=== PATIENT | female | born 1960 | race Caucasian/White ===

== ENCOUNTER 2017-02-23 19:08 | Inpatient (IN) | payer OTHER ==
[~2017-02-23] VITALS: Ht 157.5 cm; Wt 91.0 kg
[~2017-02-23 19:08] MED LIST: ASPI-535 PO; CHOL2000 PO; FLUO20CA22 PO; HYD25 PO; HYDR-3498 PO; IBUP-1542 PO; JARDIANCE PO; LISI20TA11 PO; METF500T4 PO; OMEP20CA16 PO
[2017-02-23] MEDS ORDERED: SODIUM CHLORIDE 0.9% 1L BAG IV* STA (19:51)
[2017-02-23] MEDS ORDERED: ACETAMINOPHEN 325 MG TAB PO STA (19:51)
[2017-02-23] MEDS ORDERED: IBUPROFEN 600 MG TAB PO ONE (20:00)
[2017-02-23] MEDS ORDERED: AZTREONAM 1 GM/NS (PMX) 50 ML IVPB STA (20:17)
--- NOTE | 2017-02-23 20:22 | RADRPT ---
PROCEDURE: CT Brain without contrast. CLINICAL INDICATION: Headaches and possible sepsis TECHNIQUE: A CT of the brain was performed on a GE Quantum OPSpeeBoox 64-slice CT scanner utilizing axial imaging from the skull base through the vertex without IV contrast. Multiplanar reformatted images were made. Images were reviewed on a PACS workstation. The CTDIvol is 43.09 mGy and the DLP is 823 .32 mGycm. One of the following 3 dose reduction techniques were used: Automated exposure control; adjustment of the mA and/or kV according to patient size; or use of iterative reconstruction technique. COMPARISON: Noncontrast CT brain dated 05/25/2015 and 06/22/2014 FINDINGS: There is no intracranial hemorrhage, mass effect, or midline shift. No extra-axial fluid collection is seen. The ventricles and sulci are normal in size and configuration. The density of the brain is normal, and the watkins white matter differentiation appears well-preserved. Mild vascular calcificat ions are present of the bilateral intracranial internal carotid arteries. The visualized scalp and calvarium are normal. The bilateral orbits demonstrate prior lens replacem ent. The bilateral paranasal sinuses demonstrate nodular mucosa in the left greater than right ethm oid sinuses compatible with chronic sinus disease. The bilateral mastoid air cells and middle ear c avities are remarkable for chronic soft tissue attenuation in the right inferior mastoid air cells u nchanged from [address] CT. IMPRESSION: 1. No evidence of acute intracranial hemorrhage, infarcts, or acute intracranial pathology. 2. No significant interval change from 06/22/2014 3. Mild atherosclerotic vascular disease RPTAT: HDC .Marian Cazares MD, MD Date Time Electronically viewed and signed by .Marian Cazares MD, MD on 02/23/2017 20:22 .C/
[2017-02-23] MEDS ORDERED: VANCOMYCIN 1 GM (PMX) 250 ML IVPB ONE (20:30)
[2017-02-23] MEDS ORDERED: ACETAMINOPHEN 325 MG TAB PO ONE (21:00)
--- NOTE | 2017-02-23 21:02 | RADRPT ---
PROCEDURE: XR Chest. CLINICAL INDICATION: Sepsis. TECHNIQUE: Single frontal chest x-ray. COMPARISON: 10/30/2015 FINDINGS: Heart is enlarged.. Mild pulmonary vascular congestion.. There is left basilar atelectasis versus s carring, similar to prior study.. There is small peripheral nodular density right mid lung field, li otf calcified granulomas, unchanged. There is no pleural effusion. There is no pneumothorax. The osseous structures are unremarkable. IMPRESSION: Cardiomegaly.. Mild pulmonary vascular congestion. Left basilar atelectasis versus scarring. Prob able granulomas in the right mid lung field. RPTAT: HMVK .Justin Barton MD, MD Date Time Electronically viewed and signed by .Justin Barton MD, on 02/23/2017 21:02 .K/
[2017-02-23 21:33] LABS: ADD SCAN DIFF NO
[2017-02-23 21:35] LABS: ABNORMAL IP MESSAGE 1; BASOPHILS % 0.1 % (0.0-2.0); EOSINOPHILS % 0.2 % (0.0-7.0); HEMATOCRIT 44.8 % (37.0-47.0); HEMOGLOBIN 14.6 g/dl (12.0-16.0); LYMPHOCYTES # 0.3 10^3/ul (0.8-2.9); MEAN CORPUSCULAR HEMOGLOBIN 28.7 pg (29.0-33.0); MEAN CORPUSCULAR HGB CONC 32.6 g/dl (32.0-37.0); MEAN PLATELET VOLUME 10.7 fl (7.4-10.4); MONOCYTE # 0.5 10^3/ul (0.3-0.9); MONOCYTES % 6.3 % (0.0-11.0); NEUTROPHIL # 7.6 10^3/ul (1.6-7.5); NEUTROPHILS % 88.8 % (39.0-77.0); PLATELET COUNT 169 10^3/UL (140-415); RED BLOOD COUNT 5.09 10^6/ul (4.20-5.40); RED CELL DISTRIBUTION WIDTH 14.7 % (11.5-14.5); WHITE BLOOD COUNT 8.5 10^3/ul (4.8-10.8)
[2017-02-23 21:56] LABS: INR 1.06; PROTIME 13.8 Sec (12.2-14.2); PT RATIO 1.1
[2017-02-23 22:12] LABS: ALANINE AMINOTRANSFERASE 82 IU/L (13-69); ALBUMIN 4.5 g/dl (3.3-4.9); ALKALINE PHOSPHATASE 87 IU/L (42-121); ANION GAP 20 (8-16); ASPARTATE AMINO TRANSFERASE 91 IU/L (15-46); BILIRUBIN,INDIRECT 0.4 mg/dl (0-1.1); BILIRUBIN,TOTAL 0.4 mg/dl (0.2-1.3); BLOOD UREA NITROGEN 15 mg/dl (7-20); CALCIUM 9.7 mg/dl (8.4-10.2); CARBON DIOXIDE 25 mmol/L (21-31); CHLORIDE 97 mmol/L (97-110); CREATININE 0.78 mg/dl (0.44-1.00); GLUCOSE 119 mg/dl (70-220); POTASSIUM 3.7 mmol/L (3.5-5.1); SODIUM 138 mmol/L (135-144); TOTAL PROTEIN 7.7 g/dl (6.1-8.1)
--- NOTE | 2017-02-23 22:25 | ERA ---
ER Documentation Chief Complaint Date/Time DATE: 02/23/17 TIME: 22:22 Chief Complaint fever, bodyaches x 3 days -n/v/d HPI Patient is a 56-year-old female with hypertension, diabetes, and depression who presents with fever. She has had fever for the past 3 days. She has a headache and whole body pain. She has chills. She feels tired. She says she has never had this before. She has had no treatment as of yet. She is answering questions appropriately. She does not know who her primary care doctor is. Upon review of old medical records she has had previous visits to the emergency department with admissions. ROS All systems reviewed and are negative except as per history of present illness. Medications Home Meds Active Scripts Ibuprofen* (Motrin*) 600 Mg Tab, 600 MG PO Q6, #20 TAB Prov:ABDULLAHI AMBRIZ MD 11/18/15 Reported Medications Cholecalciferol* (Vitamin D3*) 2,000 Unit Cap, 2000 UNIT PO DAILY, CAP 10/30/15 Aspirin Ec (Aspir 81) 81 Mg Tablet.dr, 81 MG PO DAILY, #30 TAB 10/30/15 [Jardiance] No Conflict Check, 10 MG PO DAILY 05/25/15 Lisinopril* (Lisinopril*) 20 Mg Tablet, 20 MG PO DAILY, TAB 06/13/14 Omeprazole* (Omeprazole*) 20 Mg Capsule.dr, 20 MG PO DAILY, CAP 06/13/14 Hydrochlorothiazide* (Hydrochlorothiazide*) 25 Mg Tab, 25 MG PO DAILY, TAB 06/13/14 Fluoxetine Hcl* (Fluoxetine Hcl*) 20 Mg Capsule, 20 MG PO DAILY, CAP 06/13/14 Metformin* (Glucophage*) 500 Mg Tab, 500 MG PO BID, TAB 06/13/14 Discontinued Scripts Hydrocodone Bit-Acetaminophen* ([place]*) 5-325 Mg Tab, 1 TAB PO Q6 Y for PAIN, # 16 TAB Prov:ABDULLAHI AMBRIZ MD 11/18/15 Allergies Allergies: Coded Allergies: Penicillins (Unverified Allergy, Unknown, 02/23/17) PMhx/Soc History of Surgery: Yes (LITHOTRIPSY, HYSTERECTOMY, cholecytectomy, L shoulder , hernia) Anesthesia Reaction: No Hx Neurological Disorder: No Hx Respiratory Disorders: No Hx Cardiac Disorders: Yes (HTN) Hx Psychiatric Problems: No Hx Miscellaneous Medical Probl: Yes (DM, cholesterol) Hx Alcohol Use: No Hx Substance Use: No Hx Tobacco Use: No Smoking Status: Never smoker FmHx Family History: diabetes Physical Exam Vitals Vital Signs Date Time Temp Pulse Resp B/P Pulse Ox O2 Delivery O2 Flow Rate FiO2 02/23/17 22:13 99.2 97 22 104/57 96 Room Air 02/23/17 20:34 102.6 115 24 128/73 93 Room Air 02/23/17 19:26 103.1 127 20 136/65 95 Physical Exam Const: Moderate distress Head: Atraumatic Eyes: Normal Conjunctiva ENT: Normal External Ears, Nose and Mouth. Neck: Full range of motion..~ No meningismus. Able to move the neck back and forth without difficulty Resp: Decreased breath sounds bilaterally Cardio: Tachycardic rate without murmur Abd: Soft, non tender, non distended. Normal bowel sounds Skin: No petechiae or rashes Back: No midline or flank tenderness Ext: No cyanosis, or edema Neur: Awake and alert Psych: Normal Mood and Affect Result Diagram: 02/23/172044 Results 24 hrs Laboratory Tests Test 02/23/17 20:45 White Blood Count 8.510^3/ul Red Blood Count 5.0910^6/ul Hemoglobin 14.6g/dl Hematocrit 44.8% Mean Corpuscular Volume 88.0fl Mean Corpuscular Hemoglobin 28.7pg Mean Corpuscular Hemoglobin Concent 32.6g/dl Red Cell Distribution Width 14.7% Platelet Count 47449^3/UL Mean Platelet Volume 10.7fl Neutrophils % 88.8% Lymphocytes % 4.0% Monocytes % 6.3% Eosinophils % 0.2% Basophils % 0.1% Nucleated Red Blood Cells % 0.0/100WBC Neutrophils # 7.610^3/ul Lymphocytes # 0.310^3/ul Monocytes # 0.510^3/ul Eosinophils # 0.010^3/ul Basophils # 0.010^3/ul Nucleated Red Blood Cells # 0.010^3/ul Prothrombin Time 13.8Sec Prothrombin Time Ratio 1.1 INR International Normalized Ratio 1.06 Activated Partial Thromboplast Time Pending Lactic Acid Level 1.8mmol/L Current Medications Medications (Trade) Dose Ordered Sig/Bob Route PRN Reason Start Time Stop Time Status Last Admin Dose Admin Sodium Chloride (NS) 2,730 ml BOLUS OVER 2 HOURS STAT IV* 02/23/17 19:51 02/23/17 19:55 DC 02/23/17 20:52 Acetaminophen (Tylenol Tab) 650 mg ONCE STAT PO 02/23/17 19:51 02/23/17 19:56 DC 02/23/17 20:54 Ibuprofen 600 mg 600 mg ONCE ONCE PO 02/23/17 20:00 02/23/17 20:01 DC 02/23/17 20:53 Vancomycin HCl 250 ml @ 125 mls/hr ONCE ONCE IVPB 02/23/17 20:30 02/23/17 22:29 02/23/17 21:07 Aztreonam (Azactam 1gm/NS (Pmx)) 50 ml @ 100 mls/hr ONCE STAT IVPB 02/23/17 20:17 02/23/17 20:46 DC Acetaminophen (Tylenol Tab) 650 mg ONCE ONCE PO 02/23/17 21:00 02/23/17 21:01 DC Ondansetron HCl (Zofran Inj) 4 mg BRIDGE ORDER PRN IV NAUSEA AND/OR VOMITING 02/23/17 22:30 02/24/17 22:29 Acetaminophen (Tylenol Tab) 650 mg ER BRIDGE PRN PO MILD PAIN/FEVER 02/23/17 22:30 02/24/17 22:29 Procedures/MDM EKG read by me: Rate/Rhythm: Sinus tachycardia Intervals: Normal Impression: Tachycardia without ischemia Chest X-ray 1V Interpreted by me: Soft Tissue: No acute abnormalities Bones: No acute abnormalities Mediastinum/Cardiac Silhouette/Lungs: Left lower lobe pneumonia and possible right hilar pneumonia Admit MDM: Patient's infectious symptoms have not stabilized and the patient is at risk of rapid decompensation. The patient will be admitted for careful hydration, antibiotic therapy, and infectious source control. Severe Sepsis criteria: Infectious source: Pneumonia End organ damage indicated by: No end organ damage at this time Sepsis Management: Time of recognition of sepsis: Upon arrival Within 3 hours of recognition: Blood cultures x 2 before broad-spectrum antibiotics: Yes 30 ml/kg NS bolus Completed Initial lactate 1.8 Repeat lactate pending Time of recognition of septic shock: No septic shock Septic Shock Assessment: Any lactic acid > 4.0 No Persistent hypotension (SBP < 90 or 40 mmHg drop, MAP < 65) despite 30 mL/kg IV fluid bolus No Volume Re-assessment for Septic Shock (post 30 ml/kg bolus): No septic shock at this time Persistent Hypotension Treatment: Comfort care No Central line Not Required Vasopressor started Not required I considered further perfusion assessment with CVP measurement, SCVO2, bedside ultrasound volume assessment, passive leg raise, trial of further fluid bolus. And proceeded with 30 ml/kg fluid bolus of NSS, broad spectrum antibiotics, and admission. At this point I doubt meningitis and I feel the risks of a lumbar puncture outweigh the benefits. Accepting Care Team Current data and ongoing care discussed. Admitting Physician: Dr. Masterson who is covering for Dr. Prater who is admitted the patient in the past for [facility] Puppy Trainer(s): None Outstanding Data: Culture results and repeat lactic acid Critical Care: Critical care time 35 minutes excluding all billable procedures Emergent fluid management while maintaining close respiratory support. Provision of immediate and broad-spectrum antibiotic therapy. Simultaneous assessment for possible sources in order to direct targeted therapy. Consideration for invasive and chemical support to prevent cardiopulmonary collapse. Departure Diagnosis: Primary Impression: Fever Qualified Code: R50.9 - Fever, unspecified fever cause Additional Impressions: Pneumonia Qualified Code: J18.9 - Pneumonia due to infectious organism, unspecified laterality, unspecified part of lung Sepsis Qualified Code: A41.9 - Sepsis, due to unspecified organism Condition: MURPHY Jiang MD Feb 23, 2017 22:25
[2017-02-23] MEDS ORDERED: ACETAMINOPHEN 325 MG TAB PO PRN (22:30)
[2017-02-23] MEDS ORDERED: ONDANSETRON 4 MG INJ IV PRN (22:30)
[2017-02-23 22:38] LABS: TROPONIN-I < 0.012 ng/ml (0.00-0.12)
[2017-02-23 23:25] VITALS: TEMP 98.2
[2017-02-23 23:30] LABS: PARTIAL THROMBOPLASTIN TIME 33.9 Sec (25.0-35.0)
[2017-02-24 00:09] VITALS: BP 101/59; RESP 16
[2017-02-24] MEDS ORDERED: ONDANSETRON 4 MG INJ IV PRN ×2 (00:30→02:00)
[2017-02-24] MEDS ORDERED: morphine 4 MG/ML VIAL IV PRN ×2 (00:30→02:00)
[2017-02-24] MEDS ORDERED: ACETAMINOPHEN 325 MG TAB PO PRN (00:30)
[2017-02-24 01:48] VITALS: Ht 157.5 cm; Wt 91.0 kg
[2017-02-24 02:24] LABS: ADD UMIC YES; UR BILIRUBIN (Dip) NEGATIVE (NEGATIVE); UR BLOOD (Dip) 1+ (NEGATIVE); UR CLARITY CLEAR (CLEAR); UR COLOR LT. YELLOW (YELLOW); UR GLUCOSE (Dip) 1% % (NEGATIVE); UR LEUKOCYTE ESTERASE (Dip) NEGATIVE (NEGATIVE); UR NITRITE (Dip) NEGATIVE (NEGATIVE); UR TOTAL PROTEIN (Dip) 1+ (NEGATIVE); UR UROBILINOGEN (Dip) 1.0 E.U./dL (0.1-1.0)
[2017-02-24 02:28] LABS: UR KETONES (Dip) 1+ (NEGATIVE)
[2017-02-24 02:34] LABS: UR BUDDING YEAST RARE /HPF (NONE SEEN); UR SQUAMOUS EPITHELIAL CELL OCCASIONAL /HPF (FEW); URINE RBCS 0-2 /HPF (0)
[2017-02-24 03:24] LABS: ADD SCAN DIFF NO
[2017-02-24 03:26] LABS: BASOPHILS % 0.3 % (0.0-2.0); EOSINOPHILS % 0.2 % (0.0-7.0); HEMATOCRIT 41.5 % (37.0-47.0); HEMOGLOBIN 13.2 g/dl (12.0-16.0); LYMPHOCYTES # 0.7 10^3/ul (0.8-2.9); LYMPHOCYTES % 11.1 % (15.0-51.0); MEAN CORPUSCULAR HEMOGLOBIN 28.7 pg (29.0-33.0); MEAN CORPUSCULAR HGB CONC 31.8 g/dl (32.0-37.0); MEAN CORPUSCULAR VOLUME 90.2 fl (82.0-101.0); MONOCYTE # 0.5 10^3/ul (0.3-0.9); NEUTROPHIL # 4.7 10^3/ul (1.6-7.5); NEUTROPHILS % 79.7 % (39.0-77.0); PLATELET COUNT 148 10^3/UL (140-415); RED CELL DISTRIBUTION WIDTH 14.6 % (11.5-14.5); WHITE BLOOD COUNT 5.9 10^3/ul (4.8-10.8)
[2017-02-24 03:38] VITALS: BP 101/53; PULSE 67; RESP 18
[2017-02-24 03:47] LABS: ALBUMIN 4.1 g/dl (3.3-4.9); ALBUMIN/GLOBULIN RATIO 1.51; BILIRUBIN,INDIRECT 0.4 mg/dl (0-1.1); BILIRUBIN,TOTAL 0.4 mg/dl (0.2-1.3); CREATININE 0.71 mg/dl (0.44-1.00); POTASSIUM 3.3 mmol/L (3.5-5.1); TOTAL PROTEIN 6.8 g/dl (6.1-8.1)
[2017-02-24] MEDS: ACETAMINOPHEN 325 MG TAB PO PRN ×3 (06:00→17:32)
[2017-02-24 06:07] VITALS: BP 102/65; PULSE 91; RESP 18
[2017-02-24] MEDS ORDERED: GLUCOSE GEL 15 GRAM TUBE BUCCAL PRN (07:30)
[2017-02-24] MEDS ORDERED: GLUCOSE GEL 15 GRAM TUBE PO PRN ×2 (07:30)
[2017-02-24] MEDS ORDERED: GLUCAGON 1 MG INJ IM PRN (07:30)
[2017-02-24] MEDS ORDERED: DEXTROSE 50% 50 ML SYRINGE IV PRN ×2 (07:30)
[2017-02-24] MEDS: INSULIN ASPART [NOVOLOG] 3 ML PEN SC SCH ×4 (08:15→21:00)
[2017-02-24 08:17] VITALS: BP 112/63; RESP 16
[2017-02-24] MEDS ORDERED: ENOXAPARIN 30 MG/0.3 ML SYG SC SCH (09:00)
[2017-02-24] MEDS ORDERED: AZTREONAM 0.5 GM in SOD CHLORIDE 0.9% 50 ML IV SCH (09:00)
[2017-02-24] MEDS: AZTREONAM 0.5 GM in SOD CHLORIDE 0.9% 50 ML IV SCH ×2 (09:55→21:08)
[2017-02-24] MEDS: ENOXAPARIN 30 MG/0.3 ML SYG SC SCH ×2 (10:13→21:14)
[2017-02-24] MEDS: [UNRECOGNIZED DRUG - OTHER] XX SCH ×2 (13:00→21:00)
[2017-02-24] MEDS: EMPAGLIFLOZIN XX SCH ×2 (13:00→21:00)
[2017-02-24] MEDS: metFORMIN 500 MG TAB PO SCH (17:33)
--- NOTE | 2017-02-24 18:22 | CONS ---
DATE OF ADMISSION: 02/23/2017 DATE OF CONSULTATION: 02/24/2017 TYPE OF CONSULTATION: Infectious Disease. REASON FOR CONSULTATION: Antibiotic management. HISTORY OF PRESENT ILLNESS: Leann Ace is a 56-year-old female who comes in [facility] fever and body aches for 3 days' duration along with nausea, vomiting and diarrhea. PAST MEDICAL HISTORY: Include: 1. Hypertension. 2. Diabetes. 3. Depression. The patient has had fever for the last 3 days prior to admission with headache and whole body pain. She has had some chills. She has not had any treatment. ALLERGY: REPORTEDLY TO PENICILLIN. PAST SURGICAL HISTORY: Include: 1. Lithotripsy for stone. 2. Hysterectomy 3. Cholecystectomy. 4. Left shoulder surgery 5. Status post hernia repair. 6. Hypercholesterolemia. PAST MEDICAL HISTORY: Operations as outlined. FAMILY HISTORY: Noncontributory. FAMILY HISTORY: Positive for diabetes. SOCIAL HISTORY: She does not smoke, drink or abuse drugs. ALLERGIES: NONE TO PENICILLIN, SULFA OR FOODS. MEDICATIONS: Per chart. REVIEW OF SYSTEMS: As per HPI. PHYSICAL EXAMINATION: GENERAL: The patient is a well-developed, well-nourished female, alert, responsive, in no acute dis tress. VITAL SIGNS: Stable. She is afebrile. SKIN: Without generalized rash. HEENT: Within normal limits. NECK: Full range of motion without any meningismus. NECK: Supple. LYMPH NODES: None palpable. CHEST: Decreased breath sounds at the bases. HEART: Without murmur, rub or gallop. She is tachycardic. ABDOMEN: Soft, nontender, without organosplenomegaly or masses. EXTREMITIES: Without cyanosis, clubbing, or edema. RECTAL AND GENITAL: Deferred. NEUROLOGIC: No focal neurological abnormalities. LABORATORY DATA: White count of 8.5, H and H 14.6 and 44.8, platelet count 169,000. Today, her i te count is 5.9, BUN and creatinine 13/0.71. AST and ALT slightly elevated at 89 and 75 respectivel y. Hemoglobin A1c is 6.9. IMPRESSION AND PLAN: Patient was started on aztreonam and vancomycin. She received vancomycin and aztreonam. Her blood cultures x2 were drawn and urine culture was done as well. We will await the results of those cultures. Her chest x-ray just showed some mild pulmonary vascular congestion, lef t basilar atelectasis versus scarring, probable granuloma in the right mid lung field. I will sarina nue her on vancomycin and aztreonam and await the cultures. Currently, she is afebrile at 99.1. I will dictate my findings to the hospitalist. Dictated By: MELISSA EASLEY MD, JD/NIURKA Conf#: [id number] DID#: [id number]
[2017-02-24 19:22] VITALS: BP 126/67; RESP 20
[2017-02-24] MEDS ORDERED: POTASSIUM CHLORIDE (SR) 10 MEQ TAB PO STA (20:31)
[2017-02-25] MEDS ORDERED: ACCU-CHEK XX SCH ×2 (02:00)
[2017-02-25] MEDS: EMPAGLIFLOZIN XX SCH (05:00)
[2017-02-25] MEDS: [UNRECOGNIZED DRUG - OTHER] XX SCH (05:00)
[2017-02-25 06:00] LABS: ADD SCAN DIFF NO
[2017-02-25 06:13] LABS: HEMATOCRIT 39.5 % (37.0-47.0); HEMOGLOBIN 12.7 g/dl (12.0-16.0); MEAN CORPUSCULAR HEMOGLOBIN 28.7 pg (29.0-33.0); MEAN CORPUSCULAR HGB CONC 32.2 g/dl (32.0-37.0); MEAN CORPUSCULAR VOLUME 89.2 fl (82.0-101.0); MEAN PLATELET VOLUME 10.6 fl (7.4-10.4); PLATELET COUNT 164 10^3/UL (140-415); RED BLOOD COUNT 4.43 10^6/ul (4.20-5.40); RED CELL DISTRIBUTION WIDTH 14.5 % (11.5-14.5); WHITE BLOOD COUNT 4.4 10^3/ul (4.8-10.8)
[2017-02-25 06:38] LABS: CALCIUM 9.1 mg/dl (8.4-10.2); CHOL/HDL RATIO 5.2 RATIO; CREATININE 0.67 mg/dl (0.44-1.00); POTASSIUM 3.8 mmol/L (3.5-5.1)
--- NOTE | 2017-02-25 07:03 | HP ---
DATE OF ADMISSION: 02/23/2017 CHIEF COMPLAINT: Fever and body aches. HISTORY OF PRESENT ILLNESS: The patient is a 56-year-old female with medical history positive for h ypertension, diabetes, obesity, depression. The patient presented to the emergency room with compla ints of fever for the past 3 days. The patient also complains of headache and generalized body pain and malaise. The patient usually follows at [facility], does not exactly remem stephen the name of primary doctor. However, patient stated that she has been compliant with her medica tion for hypertension, diabetes. In the emergency room, the patient's temperature on admission was 103.1. The patient underwent a brain CT which showed no evidence of acute intracranial hemorrhage, infarct or acute intracranial pathology. No significant interval change from 06/22/2014. Mild athe rosclerotic vascular disease. The patient underwent chest x-ray which revealed left basilar with __ ___ of left lower lobe infiltrate. The patient was diagnosed with community-acquired pneumonia. Th e patient was started on vancomycin and aztreonam and was admitted for further evaluation and manage ment. The patient denies any nausea, vomiting. Denies any chest pain. Denies any bilateral lower extremity swelling. PAST MEDICAL HISTORY: Per HPI. PAST SURGICAL HISTORY: Status post hysterectomy, status post lithotripsy, status post cholecystecto my, status post right shoulder surgery for tendon repair, and status post cataract surgery. FAMILY HISTORY: The patient had sister with diabetes, hypertension and breast cancer. SOCIAL HISTORY: The patient lives at home with family. The patient denies any tobacco use, denies any alcohol use, denies any illicit drug use. ALLERGIES: THE PATIENT IS ALLERGIC TO PENICILLIN THAT CAUSES HER RASH WELL TONGUE SWELLING. HOME MEDICATIONS: Include: 1. Ibuprofen. 2. Vitamin D3. 3. Aspirin. 4. Jardiance. 5. Lisinopril. 6. Omeprazole. 7. Hydrochlorothiazide. 8. Fluoxetine. 9. Glucophage. REVIEW OF SYSTEMS: A 12-point review of systems is negative unless what mentioned in the HPI. PHYSICAL ASSESSMENT: GENERAL: Well-developed, obese female currently awake, alert. VITAL SIGNS: Temperature is 99.1, pulse is 89, blood pressure 112/63, respiratory rate 16, oxygen s aturation 96% on room air. HEENT: Head is atraumatic, normocephalic. Pupils equal, round, reactive to light and accommodation . Oral mucosa is pink and moist. NECK: Supple, no cervical lymphadenopathy, no thyromegaly. CHEST: Lungs clear bilaterally, slightly diminished at the bases. There is no rhonchi, wheezes, ra les noted. CARDIOVASCULAR: Normal S1, S2. No murmurs, gallops, clicks, rubs noted. ABDOMEN: Protuberant, soft, nondistended, nontender. Bowel sounds present. EXTREMITIES: There is no edema, clubbing, cyanosis. Pulses equal bilaterally 2+. SKIN: There is no rash, petechiae noted. NEUROLOGIC: The patient is alert and oriented x4. No focal deficits noted. Motor strength is 5/5 in all extremities. ASSESSMENT AND PLAN: 1. Community-acquired pneumonia. 2. Hypertension. 3. Diabetes. 4. Obesity. 5. Depression. We will continue patient's home medication. Continue metformin for diabetes and start NovoLog per m ild algorithm sliding scale before meals and at bedtime. Continue hydrochlorothiazide and lisinopri l. Continue patient on aztreonam. Ask Dr. Almonte to see patient in infectious disease consultation . Continue sequential compression devices for deep venous thrombosis prophylaxis. Also obtain hemoglobin A1c and lipid profile. Lovenox for deep venous thrombosis prophylaxis and Pepcid f or peptic ulcer disease prophylaxis. Further recommendations based on clinical course. Plan of care discussed with Dr. Prater. Dictated By: CALI COHEN MACHINED PARTS METAL SPRAYER for HYACINTH PRATER MD SR/NTS Conf#: [id number] DID#: [id number]
[2017-02-25 07:42] VITALS: BP 99/60; RESP 19
[2017-02-25] MEDS: INSULIN ASPART [NOVOLOG] 3 ML PEN SC SCH ×4 (08:15→20:57)
[2017-02-25] MEDS: LISINOPRIL 20 MG TAB PO SCH (08:34)
[2017-02-25] MEDS: ASPIRIN (EC) 81 MG TAB PO SCH (08:34)
[2017-02-25] MEDS: metFORMIN 500 MG TAB PO SCH ×2 (08:34→17:00)
[2017-02-25] MEDS: FAMOTIDINE 20 MG TAB PO SCH (08:34)
[2017-02-25] MEDS: HYDROCHLOROTHIAZIDE 25 MG TAB PO SCH (08:35)
[2017-02-25] MEDS: FLUOXETINE 20 MG CAP PO SCH (08:36)
[2017-02-25] MEDS: ENOXAPARIN 30 MG/0.3 ML SYG SC SCH ×2 (08:52→21:09)
[2017-02-25] MEDS ORDERED: ENOXAPARIN 30 MG/0.3 ML SYG SC SCH (09:00)
[2017-02-25] MEDS: JARDIANCE 10 MG PO SCH (09:27)
[2017-02-25] MEDS: AZTREONAM 0.5 GM in SOD CHLORIDE 0.9% 50 ML IV SCH (09:30)
[2017-02-25 10:27] LABS: EOSINOPHILS # 0.1 10^3/ul (0.0-0.5); LYMPHOCYTES # 1.5 10^3/ul (0.8-2.9); MONOCYTE # 0.4 10^3/ul (0.3-0.9); NEUTROPHIL # 2.2 10^3/ul (1.6-7.5)
[2017-02-25 10:29] LABS: PLATELET ESTIMATE PLT APPEAR ADEQUATE
--- NOTE | 2017-02-25 14:18 | PN ---
Date/Time of Note Date/Time of Note DATE: 02/25/17 TIME: 14:15 Assessment/Plan VTE Prophylaxis VTE Prophylaxis Intervention: SCD's Lines/Catheters IV Catheter Type (from [facility]): Peripheral IV Urinary Cath still in place: No Assessment/Plan Assessment/Plan 1. Community-acquired pneumonia. - per ID 2. Hypertension- cont .hydrochlorothiazide and lisinopril. 3. Diabetes - Continue metformin, NovoLog mild algorithm sliding scale before meals and at bedtime. 4. Obesity with BMI 36.7- weight management 5. Depression. 6. Sequential compression devices for deep venous thrombosis prophylaxis. 7. Lovenox for deep venous thrombosis prophylaxis 8. Pepcid for peptic ulcer disease prophylaxis. Further recommendations based on clinical course. Plan of care dw Dr Prater/ staff Exam/Review of Systems Vital Signs Vitals Vital Signs Date Time Temp Pulse Resp B/P Pulse Ox O2 Delivery O2 Flow Rate FiO2 02/25/17 07:42 98.7 101 19 99/60 95 02/24/17 06:07 Room Air Intake and Output 02/24/17 02/24/17 02/25/17 15:00 23:00 07:00 Intake Total 100 ml 2420 ml Output Total 1500 ml Balance 100 ml 920 ml Exam Constitutional: alert, oriented Respiratory: clear to auscultation, normal air movement Cardiovascular: nl pulses, regular rate and rhythm Gastrointestinal: non-tender, soft Musculoskeletal: nl extremities to inspection Neurological: nl mental status, nl speech Results Result Diagram: 02/25/17 0540 02/25/17 0540 Results 24 hrs Laboratory Tests Test 02/24/17 17:29 02/24/17 21:21 02/25/17 05:40 02/25/17 08:15 Bedside Glucose 96 114 127 White Blood Count 4.4 #L Red Blood Count 4.43 Hemoglobin 12.7 Hematocrit 39.5 Mean Corpuscular Volume 89.2 Mean Corpuscular Hemoglobin 28.7 L Mean Corpuscular Hemoglobin Concent 32.2 Red Cell Distribution Width 14.5 Platelet Count 164 Mean Platelet Volume 10.6 H Neutrophils % 50.0 Lymphocytes % 35.0 Monocytes % 10.0 Eosinophils % 3.0 Metamyelocytes % 1.0 H Myelocytes % 1.0 H Neutrophils # 2.2 Lymphocytes # 1.5 Monocytes # 0.4 Eosinophils # 0.1 Metamyelocytes # 0.0 Myelocytes # 0.0 Platelet Estimate PLT APPEAR ADEQUATE Sodium Level 138 Potassium Level 3.8 Chloride Level 104 Carbon Dioxide Level 26 Anion Gap 12 Blood Urea Nitrogen 12 Creatinine 0.67 Glucose Level 101 Calcium Level 9.1 Triglycerides Level 210 H Cholesterol Level 127 LDL Cholesterol, Calculated 61 HDL Cholesterol 24 L Cholesterol/HDL Ratio 5.2 Test 02/25/17 12:12 Bedside Glucose 114 Medications Medications Current Medications Morphine Sulfate (morphine) 4 mg Q4H PRN IV PAIN; Start 02/24/17 at 02:00 Acetaminophen (Tylenol Tab) 650 mg Q4H PRN PO PAIN AND OR ELEVATED TEMP Last administered on 02/24/17 17:32; Admin Dose 650 MG; Start 02/24/17 at 02:00 Ondansetron HCl (Zofran Inj) 4 mg Q6H PRN IV NAUSEA AND/OR VOMITING; Start at 02:00 Enoxaparin Sodium (Lovenox) 30 mg BID SC Last administered on 02/25/17 08:52; Admin Dose 30 MG; Start 02/24/17 at 09:00 Miscellaneous Information 1 ea NOTE XX ; Start 02/24/17 at 07:30 Glucose (Glutose) 15 gm Q15M PRN PO DECREASED GLUCOSE; Start 02/24/17 at 07:30 Glucose (Glutose) 22.5 gm Q15M PRN PO DECREASED GLUCOSE; Start 02/24/17 at 07: 30 Dextrose (D50w Syringe) 25 ml Q15M PRN IV DECREASED GLUCOSE; Start 02/24/17 at 07:30 Dextrose (D50w Syringe) 50 ml Q15M PRN IV DECREASED GLUCOSE; Start 02/24/17 at 07:30 Glucagon (Glucagen) 1 mg Q15M PRN IM DECREASED GLUCOSE; Start 02/24/17 at 07:30 Glucose (Glutose) 15 gm Q15M PRN BUCCAL DECREASED GLUCOSE; Start 02/24/17 at 07 :30 Famotidine (Pepcid) 20 mg DAILY PO Last administered on 02/25/17 08:34; Admin Dose 20 MG; Start 02/25/17 at 09:00 Aspirin (Halfprin) 81 mg DAILY PO Last administered on 02/25/17 08:34; Admin Dose 81 MG; Start 02/25/17 at 09:00 Fluoxetine HCl (Prozac) 20 mg DAILY PO Last administered on 02/25/17 08:36; Admin Dose 20 MG; Start 02/25/17 at 09:00 Hydrochlorothiazide (Hydrochlorothiazide) 25 mg DAILY PO Last administered on 08:35; Admin Dose 25 MG; Start 02/25/17 at 09:00 Lisinopril (Zestril) 20 mg DAILY PO Last administered on 02/25/17 08:34; Admin Dose 20 MG; Start 02/25/17 at 09:00 Patient Own Medication 1 ea DAILY PO ; Start 02/25/17 at 10:00 Miscellaneous Information (* Miscellaneous Pharmacy Order) PATIENT'S OWN MEDICATI... DAILY XX ; Start 02/26/17 at 09:00 Levofloxacin (Levaquin) 500 mg ONCE ONCE PO ; Start 02/25/17 at 14:30; Stop at 14:31 Levofloxacin (Levaquin) 500 mg DAILY@06 PO ; Start 02/26/17 at 06:00 LEEANNE ROSEN Feb 25, 2017 14:18
[2017-02-25] MEDS ORDERED: LEVOFLOXACIN 500 MG TAB PO ONE (14:30)
--- NOTE | 2017-02-25 14:32 | PN ---
DATE: 02/25/2017 SUBJECTIVE: Patient is alert, denies pain, no fevers, looks comfortable. WBC today 4.4, no shift, no bands. BUN 12, creatinine 0.67. MICROBIOLOGY: Blood cultures negative. Urine culture grew lactobacillus species consistent with co ntaminant. ANTIMICROBIALS: None. ALLERGIES: PENICILLIN. ANTIMICROBIALS: The patient is on aztreonam. PHYSICAL EXAMINATION: GENERAL: This is a morbidly obese, middle-aged woman who is awake, in no distress. HEENT: Head atraumatic, normocephalic. Sclerae anicteric. Buccal mucosa pink. NECK: Supple. CHEST: Rise symmetrical. Breath sounds clear. HEART: S1, S2. ABDOMEN: Soft, bowel tones present. EXTREMITIES: Without cyanosis. ASSESSMENT: 1. Systemic inflammatory response syndrome with ongoing fevers. 2. Possible pneumonia. 3. Morbid obesity. 4. ALLERGY TO PENICILLIN. 5. Diabetes. 6. Hypertension. PLAN: The patient remains stable. Blood cultures have been negative. We are going to change antib iotics to oral Levaquin. Repeat chest x-ray in a.m. and repeat cultures if patient spikes fevers ag ain. Dictated By: KEI MARTINES FURNITURE BUILDER for MELISSA SANCHEZ/NIURKA Conf#: [id number] DID#: [id number]
[2017-02-25 19:42] VITALS: BP 125/59; RESP 20
[2017-02-26] MEDS ORDERED: LEVOFLOXACIN 500 MG TAB PO SCH (06:00)
[2017-02-26] MEDS: ACETAMINOPHEN 325 MG TAB PO PRN (06:16)
[2017-02-26 06:20] VITALS: BP 118/60; PULSE 85; RESP 19
[2017-02-26 07:53] VITALS: BP 116/72; RESP 18
[2017-02-26] MEDS: INSULIN ASPART [NOVOLOG] 3 ML PEN SC SCH ×3 (07:59→17:39)
[2017-02-26] MEDS: metFORMIN 500 MG TAB PO SCH ×2 (08:00→17:39)
[2017-02-26] MEDS: HYDROCHLOROTHIAZIDE 25 MG TAB PO SCH (08:26)
[2017-02-26] MEDS: ASPIRIN (EC) 81 MG TAB PO SCH (08:27)
[2017-02-26] MEDS: FLUOXETINE 20 MG CAP PO SCH (08:27)
[2017-02-26] MEDS: LISINOPRIL 20 MG TAB PO SCH (08:27)
[2017-02-26] MEDS: FAMOTIDINE 20 MG TAB PO SCH (08:27)
[2017-02-26] MEDS ORDERED: [UNRECOGNIZED DRUG - REMARK] XX SCH (09:00)
[2017-02-26] MEDS: ENOXAPARIN 30 MG/0.3 ML SYG SC SCH (09:20)
[2017-02-26] MEDS: JARDIANCE 10 MG PO SCH (09:25)
--- NOTE | 2017-02-26 10:33 | RADRPT ---
PROCEDURE: Chest 1 views. CLINICAL INDICATION: Shortness of breath. TECHNIQUE: AP views of the chest was obtained. COMPARISON: February 23, 2017 FINDINGS: The heart is large. Mild interstitial prominence in both lungs is unchanged. Atelectasis or scarrin g at the left lung base is unchanged. Calcified granulomatous disease in both lungs is unchanged. Atelectasis is seen at the right lung base. No consolidations are identified. No pneumothorax is se en. Osseous structures are intact. IMPRESSION: Cardiomegaly . Stable mild interstitial prominence in both lungs. Interstitial prominence may be chronic. Stable atelectasis or scarring at the left lung base. Atelectasis at the right lung base. Stable calcified granulomatous disease in both lungs. RPTAT: AA .Efrain Jackson MD, MD Date Time Electronically viewed and signed by .Efrain Jackson MD, MD on 02/26/2017 10:32 .P/
--- NOTE | 2017-02-26 13:04 | CONS ---
Date/Time of Note Date/Time of Note DATE: 02/26/17 TIME: 13:03 Assessment/Plan Assessment/Plan Chief Complaint/Hosp Course SUBJECTIVE: Patient is alert, no fevers, looks comfortable. MICROBIOLOGY: Blood cultures negative. Urine culture grew lactobacillus species consistent with contaminant. ANTIMICROBIALS: Levaquin ALLERGIES: PENICILLIN. PHYSICAL EXAMINATION: GENERAL: This is a morbidly obese, middle-aged woman who is awake, in no distress. HEENT: Head atraumatic, normocephalic. Sclerae anicteric. Buccal mucosa pink. NECK: Supple. CHEST: Rise symmetrical. Breath sounds clear. HEART: S1, S2. ABDOMEN: Soft, bowel tones present. EXTREMITIES: Without cyanosis. ASSESSMENT: 1. Systemic inflammatory response syndrome with ongoing fevers. 2. Possible pneumonia. 3. Morbid obesity. 4. ALLERGY TO PENICILLIN. 5. Diabetes. 6. Hypertension. PLAN: The patient remains stable. Blood cultures have been negative. Repeat chest x-ray noted, ok dc on oral abx for 7 days. DW staff Problems: Consultation Date/Type/Reason Admit Date/Time Feb 23, 2017 at 22:20 Initial Consult Date Type of Consultation: ID Exam/Review of Systems Vital Signs Vitals Vital Signs Date Time Temp Pulse Resp B/P Pulse Ox O2 Delivery O2 Flow Rate FiO2 02/26/17 07:53 98.1 75 18 116/72 93 02/24/17 06:07 Room Air Intake and Output 02/25/17 02/25/17 02/26/17 15:00 23:00 07:00 Intake Total 850 ml 2000 ml Output Total 600 ml Balance 850 ml 1400 ml Results Result Diagram: 02/25/17 0540 02/25/17 0540 Results 24 hrs Laboratory Tests Test 02/25/17 16:59 02/25/17 20:50 02/26/17 07:58 02/26/17 11:57 Bedside Glucose 134 122 139 101 Medications Medications Current Medications Morphine Sulfate (morphine) 4 mg Q4H PRN IV PAIN; Start 02/24/17 at 02:00 Acetaminophen (Tylenol Tab) 650 mg Q4H PRN PO PAIN AND OR ELEVATED TEMP Last administered on 02/26/17t 06:16; Admin Dose 650 MG; Start 02/24/17 at 02:00 Ondansetron HCl (Zofran Inj) 4 mg Q6H PRN IV NAUSEA AND/OR VOMITING; Start at 02:00 Enoxaparin Sodium (Lovenox) 30 mg BID SC Last administered on 02/26/17 09:20; Admin Dose 30 MG; Start 02/24/17 at 09:00 Miscellaneous Information 1 ea NOTE XX ; Start 02/24/17 at 07:30 Glucose (Glutose) 15 gm Q15M PRN PO DECREASED GLUCOSE; Start 02/24/17 at 07:30 Glucose (Glutose) 22.5 gm Q15M PRN PO DECREASED GLUCOSE; Start 02/24/17 at 07: 30 Dextrose (D50w Syringe) 25 ml Q15M PRN IV DECREASED GLUCOSE; Start 02/24/17 at 07:30 Dextrose (D50w Syringe) 50 ml Q15M PRN IV DECREASED GLUCOSE; Start 02/24/17 at 07:30 Glucagon (Glucagen) 1 mg Q15M PRN IM DECREASED GLUCOSE; Start 02/24/17 at 07:30 Glucose (Glutose) 15 gm Q15M PRN BUCCAL DECREASED GLUCOSE; Start 02/24/17 at 07 :30 Famotidine (Pepcid) 20 mg DAILY PO Last administered on 02/26/17 08:27; Admin Dose 20 MG; Start 02/25/17 at 09:00 Aspirin (Halfprin) 81 mg DAILY PO Last administered on 02/26/17 08:27; Admin Dose 81 MG; Start 02/25/17 at 09:00 Fluoxetine HCl (Prozac) 20 mg DAILY PO Last administered on 02/26/17 08:27; Admin Dose 20 MG; Start 02/25/17 at 09:00 Hydrochlorothiazide (Hydrochlorothiazide) 25 mg DAILY PO Last administered on 08:26; Admin Dose 25 MG; Start 02/25/17 at 09:00 Lisinopril (Zestril) 20 mg DAILY PO Last administered on 02/26/17 08:27; Admin Dose 20 MG; Start 02/25/17 at 09:00 Patient Own Medication 1 ea DAILY PO Last administered on 02/26/17 09:25; Admin Dose 1 EA; Start 02/25/17 at 10:00 Miscellaneous Information (* Miscellaneous Pharmacy Order) PATIENT'S OWN MEDICATI... DAILY XX ; Start 02/26/17 at 09:00 Levofloxacin (Levaquin) 500 mg DAILY@06 PO Last administered on 02/26/17t 05:36 ; Admin Dose 500 MG; Start 02/26/17 at 06:00 KEI MARTINES NP Feb 26, 2017 13:04
[2017-02-26] MEDS ORDERED: LEVO500T72 PO (18:24)
[2017-02-26 19:34] VITALS: BP 120/63; RESP 20
--- NOTE | 2017-03-05 20:53 | DS ---
Date/Time of Note Date/Time of Note DATE: 03/05/17 TIME: 20:50 Discharge Summary Admission/Discharge Info Admit Date/Time Feb 23, 2017 at 22:20 Discharge Date/Time Feb 26, 2017 at 21:00 Discharge Diagnosis 1. Community-acquired pneumonia. 2. Hypertension. 3. Diabetes. 4. Obesity. 5. Depression. Patient Condition: Good Hx of Present Illness The patient is a 56-year-old female with medical history positive for hypertension, diabetes, obesity, depression. The patient presented to the emergency room with complaints of fever for the past 3 days. The patient also complains of headache and generalized body pain and malaise. The patient usually follows at [facility], does not exactly remember the name of primary doctor. However, patient stated that she has been compliant with her medication for hypertension, diabetes. In the emergency room , the patient's temperature on admission was 103.1. The patient underwent a brain CT which showed no evidence of acute intracranial hemorrhage, infarct or acute intracranial pathology. No significant interval change from 06/22/2014. Mild atherosclerotic vascular disease. The patient underwent chest x-ray which revealed left basilar with of left lower lobe infiltrate. The patient was diagnosed with community-acquired pneumonia. The patient was started on vancomycin and aztreonam and was admitted for further evaluation and management. The patient denies any nausea, vomiting. Denies any chest pain. Denies any bilateral lower extremity swelling. Hospital Course 1. Community-acquired pneumonia. Evaluated by Dr Almonte, ID. Given Aztreonam, d /robson on oral Levaquin. 2. Hypertension. 3. Diabetes. 4. Obesity. 5. Depression. Home Meds Active Scripts Levofloxacin* (Levaquin*) 500 Mg Tablet, 500 MG PO DAILY@06 for 7 Days, TAB Prov:CALI COHEN 02/26/17 Ibuprofen* (Motrin*) 600 Mg Tab, 600 MG PO Q6, #20 TAB Prov:ABDULLAHI AMBRIZ MD 11/18/15 Reported Medications Cholecalciferol* (Vitamin D3*) 2,000 Unit Cap, 2000 UNIT PO DAILY, CAP 10/30/15 Aspirin Ec (Aspir 81) 81 Mg Tablet.dr, 81 MG PO DAILY, #30 TAB 10/30/15 [Jardiance] No Conflict Check, 10 MG PO DAILY 05/25/15 Lisinopril* (Lisinopril*) 20 Mg Tablet, 20 MG PO DAILY, TAB 06/13/14 Omeprazole* (Omeprazole*) 20 Mg Capsule.dr, 20 MG PO DAILY, CAP 06/13/14 Hydrochlorothiazide* (Hydrochlorothiazide*) 25 Mg Tab, 25 MG PO DAILY, TAB 06/13/14 Fluoxetine Hcl* (Fluoxetine Hcl*) 20 Mg Capsule, 20 MG PO DAILY, CAP 06/13/14 Metformin* (Glucophage*) 500 Mg Tab, 500 MG PO BID, TAB 06/13/14 Follow-up Plan f/up with PMD in 2 weeks. Primary Care Provider [facility] CALI COHEN Mar 05, 2017 20:53
== END 2017-02-26 21:00 | disposition home or self-care (01) | DRG 194 ==
LOC: E/R 19:08 → MS2 22:20
PROVIDERS: ADMIT Internal Medicine; ATTEND Internal Medicine
DX: J18.9 Pneumonia, unspecified organism (principal); J98.11 Atelectasis; R65.10 Systemic inflammatory response syndrome (SIRS) of non-infectious origin without acute organ dysfunction; I10 Essential (primary) hypertension; E11.9 Type 2 diabetes mellitus without complications; E66.9 Obesity, unspecified; F32.9 Major depressive disorder, single episode, unspecified; Y95 Nosocomial condition; Z79.82 Long term (current) use of aspirin; Z68.36 Body mass index [BMI] 36.0-36.9, adult; Z88.0 Allergy status to penicillin
CPT/HCPCS: 36415; 70450; 71010; 80048; 80053; 80061; 81001; 82962; 83036; 83605; 83690; 84484; 85025; 85610; 85730; 87040; 87086; 87400; 93005; 96374; 96375; J1650; J1815; J3370; J7030

== ENCOUNTER 2017-07-30 05:42 | Observation (INO) | payer OTHER ==
[~2017-07-30] VITALS: Ht 157.5 cm; Wt 92.1 kg
[~2017-07-30 05:42] MED LIST changes: -HYD25 PO; -HYDR-3498 PO; +HYDR25TA6 PO; +LEVO500T72 PO
[2017-07-30 06:00] VITALS: TEMP 98.2
[2017-07-30] MEDS ORDERED: LIDOCAINE/MYLANTA 40 ML BTL PO ONE (06:09)
[2017-07-30] MEDS ORDERED: NITROGLYCERIN 2% 1 GM OINT PKT TD ONE (06:09)
[2017-07-30] MEDS ORDERED: FAMOTIDINE 20 MG INJ IV ONE (06:09)
[2017-07-30] MEDS ORDERED: ASPIRIN 81 MG TAB PO ONE (06:09)
--- NOTE | 2017-07-30 06:13 | ERD ---
ER Documentation Chief Complaint Chief Complaint chest pain radaiting to left shoulder at 3am today HPI This is a 57-year-old female. A hourly sign language interpreter was used. She states that around 3 AM this morning she woke up with left-sided chest pain radiating to her left arm. She describes it as pressure-like, 6 out of 10. She took a baby aspirin prior to arrival. Patient denies any fevers or chills, cough, shortness of breath, no pleuritic pain. She denies any pain to the middle of her back. She states similar episode 4 years ago for which she was evaluated. She describes constant pain at this time. ROS All systems reviewed and are negative except as per history of present illness. Medications Home Meds Active Scripts Levofloxacin* (Levaquin*) 500 Mg Tablet, 500 MG PO DAILY@06 for 7 Days, TAB Prov:CALI COHEN 02/26/17 Ibuprofen* (Motrin*) 600 Mg Tab, 600 MG PO Q6, #20 TAB Prov:ABDULLAHI AMBRIZ MD 11/18/15 Reported Medications Cholecalciferol* (Vitamin D3*) 2,000 Unit Cap, 2000 UNIT PO DAILY, CAP 10/30/15 Aspirin Ec (Aspir 81) 81 Mg Tablet.dr, 81 MG PO DAILY, #30 TAB 10/30/15 [Jardiance] No Conflict Check, 10 MG PO DAILY 05/25/15 Lisinopril* (Lisinopril*) 20 Mg Tablet, 20 MG PO DAILY, TAB 06/13/14 Omeprazole* (Omeprazole*) 20 Mg Capsule.dr, 20 MG PO DAILY, CAP 06/13/14 Hydrochlorothiazide* (Hydrochlorothiazide*) 25 Mg Tab, 25 MG PO DAILY, TAB 06/13/14 Fluoxetine Hcl* (Fluoxetine Hcl*) 20 Mg Capsule, 20 MG PO DAILY, CAP 06/13/14 Metformin* (Glucophage*) 500 Mg Tab, 500 MG PO BID, TAB 06/13/14 Allergies Allergies: Coded Allergies: Penicillins (Unverified Allergy, Unknown, 02/23/17) PMhx/Soc History of Surgery: Yes (hysterectomy, lithotripsy, cholecystectomy, r shoulder sx, hernia sx) Anesthesia Reaction: No Hx Neurological Disorder: No Hx Respiratory Disorders: No Hx Cardiac Disorders: Yes (htn) Hx Psychiatric Problems: Yes (depression) Hx Miscellaneous Medical Probl: No Hx Alcohol Use: No Hx Substance Use: No Hx Tobacco Use: No FmHx Family History: diabetes Physical Exam Vitals Vital Signs Date Time Temp Pulse Resp B/P Pulse Ox O2 Delivery O2 Flow Rate FiO2 07/30/17 07:04 81 23 116/73 96 Room Air 07/30/17 06:00 Nasal Cannula 2 07/30/17 06:00 98.2 96 18 135/90 100 Nasal Cannula 2.0 07/30/17 05:48 99.3 91 20 126/71 97 Physical Exam General: Well developed, well nourished, no acute distress Head: Normocephalic, atraumatic. Eyes: Pupils equally reactive, EOM intact ENT: Moist mucous membranes Neck: Supple, no lymphadenopathy Respiratory: Lungs clear bilaterally, no distress Cardiovascular: RRR, no murmurs, rubs, or gallops Abdominal: Soft, non-tender, non-distended, no peritoneal signs : Deferred MSK: No edema, no unilateral swelling, 5/5 strength with no pulse deficits Neurologic: Alert and oriented, moving all extremities, normal speech, no focal weakness, no cerebellar signs Skin: No rash Psych: Normal mood Result Diagram: 07/30/1715 07/30/1715 Results 24 hrs Laboratory Tests Test 07/30/17 06:15 White Blood Count 7.710^3/ul Red Blood Count 4.9910^6/ul Hemoglobin 14.1g/dl Hematocrit 44.2% Mean Corpuscular Volume 88.6fl Mean Corpuscular Hemoglobin 28.3pg Mean Corpuscular Hemoglobin Concent 31.9g/dl Red Cell Distribution Width 14.2% Platelet Count 82286^3/UL Mean Platelet Volume 10.1fl Neutrophils % 54.6% Lymphocytes % 25.9% Monocytes % 10.3% Eosinophils % 7.5% Basophils % 0.8% Nucleated Red Blood Cells % 0.0/100WBC Neutrophils # 4.210^3/ul Lymphocytes # 2.010^3/ul Monocytes # 0.810^3/ul Eosinophils # 0.610^3/ul Basophils # 0.110^3/ul Nucleated Red Blood Cells # 0.010^3/ul Sodium Level 145mmol/L Potassium Level 4.1mmol/L Chloride Level 104mmol/L Carbon Dioxide Level 31mmol/L Anion Gap 14 Blood Urea Nitrogen 14mg/dl Creatinine 0.82mg/dl Glucose Level 151mg/dl Calcium Level 9.3mg/dl Troponin I < 0.012ng/ml Current Medications Medications (Trade) Dose Ordered Sig/Bob Route PRN Reason Start Time Stop Time Status Last Admin Dose Admin Famotidine (Pepcid Iv) 20 mg ONCE ONCE IV 07/30/17 06:09 07/30/17 06:12 DC 07/30/17 06:17 Miscellaneous Medication (Gi Cocktail (2)) 40 ml ONCE ONCE PO 07/30/17 06:09 07/30/17 06:12 DC 07/30/17 06:17 Aspirin (Aspirin) 162 mg ONCE ONCE PO 07/30/17 06:09 07/30/17 06:12 DC 07/30/17 06:17 Nitroglycerin (Nitroglycerin 2% Oint) 1 inch ONCE ONCE TD 07/30/17 06:09 07/30/17 06:12 DC 07/30/17 06:18 Ondansetron HCl (Zofran Inj) 4 mg ER BRIDGE PRN IV NAUSEA AND/OR VOMITING 07/30/17 07:30 07/31/17 07:29 Acetaminophen (Tylenol Tab) 650 mg ER BRIDGE PRN PO MILD PAIN/FEVER 07/30/17 07:30 07/31/17 07:29 Procedures/MDM EKG, MONITORS, & DIAGNOSTIC IMAGING: EKG: I reviewed and interpreted a 12-lead EKG. Rhythm: Normal sinus rhythm Ectopy: None Intervals: No abnormalities ST segments: No elevations or depressions T waves: No contiguous inversions Repeat EKG: EKG: I reviewed and interpreted a 12-lead EKG. Rhythm: Normal sinus rhythm Ectopy: None Intervals: No abnormalities ST segments: No elevations or depressions T waves: No contiguous inversions Chest x-ray: I reviewed and interpreted a 1 view of the chest Mediastinum: No enlargement Cardiac silhouette: No cardiomegaly Airspace: Clear lung stephenson bilaterally without evidence of pneumothorax Bones: No evidence of fracture LAB INTERPRETATION: The patient has no leukocytosis and a negative troponin MEDICAL DECISION MAKING: The patient's history, physical exam and clinical presentation is concerning for possible cardiogenic etiology and acute coronary syndrome. Reviewing the patient's electronic medical record the patient had an admission in 2016 for similar related symptoms that have been described as nocturnal chest pain. She had negative troponins at that time. At that time it was noted that she had a negative nuclear medicine stress test within the past year. It is now been significantly longer. No further provocative testing is been completed on this patient. This could be related to GI process given the nocturnal presentation however she has multiple risk factors including age, female gender, morbid obesity, diabetes among others. I believe the patient requires further risk stratification. Based on the patient's clinical exam and history and risk factors, I have a much lower clinical concern for pulmonary embolism, acute aortic dissection, pneumothorax, pneumonia, cardiac tamponade HEART Score: 4 MACE Rate: 16.6% Shared Decision Making: We had a conversation regarding risk stratification, MACE rate, and the risks, benefits, alternatives of disposition planning options. Disposition planning: I strongly recommend hospitalization the patient agrees. ER COURSE: Aspirin, nitroglycerin and GI cocktail provided to the patient. Her chest pain is resolved. The patient's laboratory testing and diagnostic imaging are unrevealing. At this point again, I believe inpatient hospitalization is appropriate. I kept the patient and/or family informed of laboratory and diagnostic imaging results throughout the emergency room course. DISPOSITION PLAN: Telemetry admission for management of chest pain to rule out acute coronary syndrome, serial enzymes, risk stratification and consideration of provocative testing CONSULTATION: Accepting care team and consultations: I discussed the current laboratory data, diagnostic imaging and emergency care provided. Admitting team: Dr. Jo Admitting team indication: Insurance directed, [facility] Departure Diagnosis: Primary Impression: Chest pain Chest pain type: unspecified Qualified Code: R07.9 - Chest pain, unspecified type Condition: REECE Strong MD Jul 30, 2017 06:13
[2017-07-30 06:29] LABS: BASOPHIL # 0.1 10^3/ul (0.0-0.1); BASOPHILS % 0.8 % (0.0-2.0); EOSINOPHILS # 0.6 10^3/ul (0.0-0.5); EOSINOPHILS % 7.5 % (0.0-7.0); HEMATOCRIT 44.2 % (37.0-47.0); HEMOGLOBIN 14.1 g/dl (12.0-16.0); LYMPHOCYTES % 25.9 % (15.0-51.0); MEAN CORPUSCULAR HEMOGLOBIN 28.3 pg (29.0-33.0); MEAN CORPUSCULAR HGB CONC 31.9 g/dl (32.0-37.0); MEAN CORPUSCULAR VOLUME 88.6 fl (82.0-101.0); MEAN PLATELET VOLUME 10.1 fl (7.4-10.4); MONOCYTE # 0.8 10^3/ul (0.3-0.9); MONOCYTES % 10.3 % (0.0-11.0); NEUTROPHIL # 4.2 10^3/ul (1.6-7.5); NEUTROPHILS % 54.6 % (39.0-77.0); PLATELET COUNT 229 10^3/UL (140-415); RED BLOOD COUNT 4.99 10^6/ul (4.20-5.40); RED CELL DISTRIBUTION WIDTH 14.2 % (11.5-14.5); WHITE BLOOD COUNT 7.7 10^3/ul (4.8-10.8)
[2017-07-30 06:50] LABS: ANION GAP 14 (8-16); BLOOD UREA NITROGEN 14 mg/dl (7-20); CALCIUM 9.3 mg/dl (8.4-10.2); CARBON DIOXIDE 31 mmol/L (21-31); CHLORIDE 104 mmol/L (97-110); CREATININE 0.82 mg/dl (0.44-1.00); GLUCOSE 151 mg/dl (70-220); POTASSIUM 4.1 mmol/L (3.5-5.1); SODIUM 145 mmol/L (135-144)
--- NOTE | 2017-07-30 07:02 | RADRPT ---
PROCEDURE: XR Chest. CLINICAL INDICATION: Chest pain. TECHNIQUE: AP Portable chest. COMPARISON: 10/30/2015, 05/25/2015 FINDINGS: The cardiomediastinal silhouette is magnified. Multiple bilateral calcified granulomas and calcified right hilar lymph nodes are again seen. No focal consolidation, pleural effusion or pneumothorax is identified. The osseous structures are intact. IMPRESSION: No radiographic evidence of acute cardiopulmonary disease. Old granulomatous disease. Physician Annie Date Time Electronically viewed and signed by Naye Lara Physician on 07/30/2017 07:01 CS/
[2017-07-30 07:06] LABS: TROPONIN-I < 0.012 ng/ml (0.00-0.12)
[2017-07-30] MEDS ORDERED: ACETAMINOPHEN 325 MG TAB PO PRN ×2 (07:30→14:30)
[2017-07-30] MEDS ORDERED: ONDANSETRON 4 MG INJ IV PRN ×2 (07:30→14:30)
[2017-07-30] MEDS ORDERED: EMPA10TA PO (10:31)
--- NOTE | 2017-07-30 14:28 | HP ---
Date/Time of Note Date/Time of Note DATE: 07/30/17 TIME: 14:23 Assessment/Plan VTE Prophylaxis VTE Prophylaxis Intervention: LMWH Lines/Catheters IV [facility] [place] Assessment/Plan Chief Complaint/Hosp Course 1. Chest pain No evidence of ACS at this time Trend troponin Cardiology consultation Patient does have risk factors of obesity, hypertension and diabetes Beta-madai, aspirin and statin Follow up on A1c and lipid panel 2. Diabetes Scheduled insulin and sliding scale 3. Hypertension Resume home meds 4. Obesity Lifestyle changes to be advised Prophylaxis: Lovenox Problems: HPI/ROS Admit Date/Time Admit Date/Time July 30, 2017 Hx of Present Illness Patient is a 57-year-old female history of diabetes, hypertension, obesity and depression. Patient presents with chest pain that began this morning, she reports a pressure-like pain in the left side of her chest. Patient denies any cardiac history she currently denies any chest pain she denies any changes in her bowel habits, shortness of breath or diaphoresis. ROS Constitutional: improved, no complaints Eyes: no complaints ENT: no complaints Respiratory: no complaints Cardiovascular: no complaints Gastrointestinal: no complaints Genitourinary: no complaints Musculoskeletal: no complaints Skin: no complaints Neurologic: no complaints Endocrine: no complaints Lymphatic: no complaints Psychological: nl mood/affect, no complaints Immunologic: no complaints PMH/Family/Social Past Medical History Obesity, diabetes, hypertension Past Surgical History Past Surgical Hx: cholecystectomy Family History Significant Family History: no pertinent family hx Social History Alcohol Use: none Smoking Status: Never smoker Drug Use: none Exam/Review of Systems Vital Signs Vitals Vital Signs Date Time Temp Pulse Resp B/P Pulse Ox O2 Delivery O2 Flow Rate FiO2 07/30/17 13:08 90 18 110/70 95 Room Air 07/30/17 06:00 2 07/30/17 06:00 98.2 Exam Constitutional: alert, oriented Respiratory: clear to auscultation Cardiovascular: regular rate and rhythm Gastrointestinal: soft, No distended Musculoskeletal: nl extremities to inspection Labs Result Diagram: 07/30/17 0615 07/30/17 0615 JAMES NEAL Jul 30, 2017 14:28
[2017-07-30] MEDS ORDERED: DOCUSATE SODIUM 100 MG CAP PO PRN (14:30)
[2017-07-30] MEDS ORDERED: HYDROCODONE/APAP (5/325) TAB PO PRN (14:30)
[2017-07-30] MEDS ORDERED: morphine 2 MG INJ IV PRN (14:30)
[2017-07-30] MEDS ORDERED: NITROGLYCERIN (SL) 0.4 MG TAB SL PRN (14:30)
[2017-07-30] MEDS ORDERED: NACL 0.9% 3 ML SYG IV SCH (14:30)
[2017-07-30] MEDS ORDERED: MAGNESIUM HYDROXIDE 30ML CUP PO PRN (14:30)
[2017-07-30] MEDS: SOD CHLORIDE 0.45% 1,000 ML IV SCH (14:51)
[2017-07-30] MEDS ORDERED: GLUCOSE GEL 15 GRAM TUBE BUCCAL PRN (15:00)
[2017-07-30] MEDS ORDERED: DEXTROSE 50% 50 ML SYRINGE IV PRN ×2 (15:00)
[2017-07-30] MEDS ORDERED: GLUCOSE GEL 15 GRAM TUBE PO PRN ×2 (15:00)
[2017-07-30] MEDS ORDERED: GLUCAGON 1 MG INJ IM PRN (15:00)
[2017-07-30 15:37] LABS: CREATINE KINASE 35 IU/L (23-200)
[2017-07-30 15:50] LABS: CK-MB 0.25 ng/ml (0.0-2.4)
[2017-07-30 15:56] LABS: TROPONIN-I < 0.012 ng/ml (0.00-0.12)
[2017-07-30] MEDS: INSULIN ASPART [NOVOLOG] 3 ML PEN SC SCH ×2 (16:25→20:47)
[2017-07-30 18:41] VITALS: PULSE 71
[2017-07-30 20:00] VITALS: PULSE 60; Ht 157.5 cm; Wt 92.1 kg
[2017-07-30 20:41] VITALS: BP 116/70; PULSE 65; RESP 20
[2017-07-30] MEDS ORDERED: ATORVASTATIN 40 MG TAB PO SCH (21:00)
[2017-07-30 21:45] LABS: CREATINE KINASE 31 IU/L (23-200)
[2017-07-30 21:54] LABS: CK-MB 0.24 ng/ml (0.0-2.4)
[2017-07-30 22:04] LABS: TROPONIN-I < 0.012 ng/ml (0.00-0.12)
[2017-07-31] VITALS (8 sets, daily range): BP systolic 99–112; BP diastolic 58–71; PULSE 60–85; RESP 17–20
[2017-07-31] MEDS: INSULIN ASPART [NOVOLOG] 3 ML PEN SC SCH ×4 (01:00→12:27)
[2017-07-31] MEDS ORDERED: ACCU-CHEK XX SCH ×2 (02:00)
[2017-07-31] MEDS: SOD CHLORIDE 0.45% 1,000 ML IV SCH ×2 (02:58→04:00)
[2017-07-31] MEDS ORDERED: PANTOPRAZOLE (EC) 40 MG TAB PO SCH (06:00)
[2017-07-31 08:46] LABS: CHOL/HDL RATIO 4.6 RATIO
[2017-07-31 08:55] LABS: CREATININE 0.71 mg/dl (0.44-1.00); MAGNESIUM 2.1 mg/dl (1.7-2.5); PHOSPHORUS 3.2 mg/dl (2.5-4.9); POTASSIUM 4.3 mmol/L (3.5-5.1)
[2017-07-31] MEDS ORDERED: FLUOXETINE 20 MG CAP PO SCH (09:00)
[2017-07-31] MEDS ORDERED: ENOXAPARIN 40 MG/0.4 ML SYG SC SCH (09:00)
[2017-07-31] MEDS ORDERED: LISINOPRIL 20 MG TAB PO SCH (09:00)
[2017-07-31 09:03] LABS: T3 UPTAKE 28.7 % (23.5-40.5)
[2017-07-31 10:25] LABS: BASOPHIL # 0.1 10^3/ul (0.0-0.1); BASOPHILS % 0.7 % (0.0-2.0); EOSINOPHILS # 0.6 10^3/ul (0.0-0.5); EOSINOPHILS % 8.7 % (0.0-7.0); HEMATOCRIT 40.2 % (37.0-47.0); LYMPHOCYTES # 2.2 10^3/ul (0.8-2.9); MEAN CORPUSCULAR HGB CONC 32.3 g/dl (32.0-37.0); MEAN CORPUSCULAR VOLUME 89.5 fl (82.0-101.0); MEAN PLATELET VOLUME 10.5 fl (7.4-10.4); MONOCYTE # 0.7 10^3/ul (0.3-0.9); MONOCYTES % 9.6 % (0.0-11.0); NEUTROPHIL # 3.6 10^3/ul (1.6-7.5); NEUTROPHILS % 50.7 % (39.0-77.0); PLATELET COUNT 206 10^3/UL (140-415); RED BLOOD COUNT 4.49 10^6/ul (4.20-5.40); RED CELL DISTRIBUTION WIDTH 14.7 % (11.5-14.5); WHITE BLOOD COUNT 7.2 10^3/ul (4.8-10.8)
--- NOTE | 2017-07-31 11:08 | PDOCDIS ---
Discharge Instructions CONDITION Patient Condition: Good HOME CARE INSTRUCTIONS: Special Diet: LOW CARB ACTIVITY: Activity Restrictions: No Restrictions FOLLOW UP/APPOINTMENTS Follow-up Plan F/U WITH YOUR PCP IN 1-2 WEEKS JAMES NEAL Jul 31, 2017 11:08
--- NOTE | 2017-07-31 11:19 | CONS ---
Date/Time of Note Date/Time of Note DATE: 07/31/17 TIME: :17 Assessment/Plan Assessment/Plan Additional Assessment/Plan 1. Chest pain - r/o VT. NO CP now - outpt stress test advised 2. Diabetes - on therpy, con't to monitor now. 3. Hypertension - stable, will adjust rx as needed 4. Obesity - significant weight loss advised. Prophylaxis: Lovenox Consultation Date/Type/Reason Admit Date/Time Jul 30, 2017 at 07:12 Initial Consult Date 24 HR Interval Summary Free Text/Dictation No acute events - CP resolved - outpt stress test advised ROS: No fever, no chills, no nausea, no vomiting, no diarrhea/constipation No recent weight changes No chest pain, no PND, no orthopnea No dizziness, blurred vision No thirst, no heat or cold intolerance Exam/Review of Systems Vital Signs Vitals Vital Signs Date Time Temp Pulse Resp B/P Pulse Ox O2 Delivery O2 Flow Rate FiO2 07/31/17 08:07 68 07/31/17 07:55 98.6 17 109/66 90 07/31/17 04:00 Room Air 07/30/17 18:59 2.0 Intake and Output 07/30/17 07/30/17 07/31/17 14:59 22:59 06:59 Intake Total 1000 ml Balance 1000 ml Exam General: WN/WD/NAD, AOx 3 HEENT: Unicetric/atraumatic/EOMI (follows commands) NECK: JVD elevated, no thyromegaly Lymph: no lymphadenopathy HEART: regular with no S3, II/ systolic murmur at apex LUNGS: Coarse sounds ABD: soft, NT, ND, +BS : Intact Neuro: non focal SKIN: chronic changes EXT: trace edema Results Result Diagram: 07/31/17 0710 07/31/17 0710 Results 24 hrs Laboratory Tests Test 07/30/17 15:00 07/30/17 16:22 07/30/17 20:46 07/30/17 21:14 Creatine Kinase 35 31 Creatine Kinase Index 0.7 0.8 Creatinine Kinase MB (Mass) 0.25 0.24 Troponin I < 0.012 < 0.012 Bedside Glucose 117 106 Test 07/31/17 01:11 07/31/17 05:50 07/31/17 07:10 07/31/17 08:26 Bedside Glucose 133 135 123 White Blood Count 7.2 Red Blood Count 4.49 Hemoglobin 13.0 Hematocrit 40.2 Mean Corpuscular Volume 89.5 Mean Corpuscular Hemoglobin 29.0 Mean Corpuscular Hemoglobin Concent 32.3 Red Cell Distribution Width 14.7 H Platelet Count 206 Mean Platelet Volume 10.5 H Neutrophils % 50.7 Lymphocytes % 30.0 Monocytes % 9.6 Eosinophils % 8.7 H Basophils % 0.7 Nucleated Red Blood Cells % 0.0 Neutrophils # 3.6 Lymphocytes # 2.2 Monocytes # 0.7 Eosinophils # 0.6 H Basophils # 0.1 Nucleated Red Blood Cells # 0.0 Sodium Level 141 Potassium Level 4.3 Chloride Level 103 Carbon Dioxide Level 29 Anion Gap 13 Blood Urea Nitrogen 13 Creatinine 0.71 Glucose Level 125 Hemoglobin A1c 6.7 H Calcium Level 9.0 Phosphorus Level 3.2 Magnesium Level 2.1 Triglycerides Level 226 H Cholesterol Level 140 LDL Cholesterol, Calculated 65 HDL Cholesterol 30 L Cholesterol/HDL Ratio 4.6 Free Thyroxine Index 2.24 Thyroxine (T4) 7.8 Triiodothyronine (T3) Uptake 28.7 Medications Medications Current Medications Sodium Chloride (1/2 NS) 1,000 ml @ 80 mls/hr [id number] IV Last administered on 07/31/17 04:00; Admin Dose 80 MLS/HR; Start 07/30/17 at 14:28 Ondansetron HCl (Zofran Inj) 4 mg Q6H PRN IV NAUSEA AND/OR VOMITING; Start at 14:30 Acetaminophen (Tylenol Tab) 650 mg Q6H PRN PO PAIN LEVEL 1-3 OR FEVER Last administered on 07/30/17 16:23; Admin Dose 650 MG; Start 07/30/17 at 14:30 Acetaminophen/ Hydrocodone Bitart ([place] (5/325)) 1 tab Q6H PRN PO MODERATE PAIN LEVEL 4-6 Last administered on 07/30/17 21:00; Admin Dose 1 TAB; Start 07/30/17 at 14:30 Morphine Sulfate (morphine) 2 mg Q4H PRN IV SEVERE PAIN LEVEL 7-10; Start at 14:30 Docusate Sodium (Colace) 100 mg Q12H PRN PO CONSTIPATION; Start 07/30/17 at 14 :30 Magnesium Hydroxide (Milk Of Mag) 30 ml DAILY PRN PO CONSTIPATION; Start 07/30 at 14:30 Enoxaparin Sodium (Lovenox) 40 mg DAILY SC Last administered on 07/31/17 08: 47; Admin Dose 40 MG; Start 07/31/17 at 09:00 Aspirin (Aspirin) 81 mg DAILY PO ; Start 08/01/17 at 09:00 Carvedilol (Coreg) 6.25 mg BID PO Last administered on 07/31/17 08:31; Admin Dose 6.25 MG; Start 07/30/17 at 21:00 Nitroglycerin (Nitroglycerin (Sl Tab) 0.4 Mg) 1 tab Q5M PRN SL CHEST PAIN; Start 07/30/17 at 14:30 Fluoxetine HCl (Prozac) 20 mg DAILY PO Last administered on 07/31/17 08:31; Admin Dose 20 MG; Start 07/31/17 at 09:00 Lisinopril (Zestril) 20 mg DAILY PO Last administered on 07/31/17 08:31; Admin Dose 20 MG; Start 07/31/17 at 09:00 Pantoprazole (Protonix Tab) 40 mg DAILY@06 PO Last administered on 07/31/17 05:52; Admin Dose 40 MG; Start 07/31/17 at 06:00 Atorvastatin Calcium (Lipitor) 40 mg HS PO Last administered on 07/30/17 21: 26; Admin Dose 40 MG; Start 07/30/17 at 21:00 Diagnostic Test (Pha) (Accu-Chek) 1 ea 02 XX Last administered on 07/31/17 01 :13; Admin Dose 1 EA; Start 07/31/17 at 02:00 Insulin Aspart (Novolog Insulin Pen) NOVOLOG *MILD* ALGORI... Q4 SC ; Start at 17:00 Miscellaneous Information 1 ea NOTE XX ; Start 07/30/17 at 15:00 Glucose (Glutose) 15 gm Q15M PRN PO DECREASED GLUCOSE; Start 07/30/17 at 15:00 Glucose (Glutose) 22.5 gm Q15M PRN PO DECREASED GLUCOSE; Start 07/30/17 at 15: 00 Dextrose (D50w Syringe) 25 ml Q15M PRN IV DECREASED GLUCOSE; Start 07/30/17 at 15:00 Dextrose (D50w Syringe) 50 ml Q15M PRN IV DECREASED GLUCOSE; Start 07/30/17 at 15:00 Glucagon (Glucagen) 1 mg Q15M PRN IM DECREASED GLUCOSE; Start 07/30/17 at 15: 00 Glucose (Glutose) 15 gm Q15M PRN BUCCAL DECREASED GLUCOSE; Start 07/30/17 at 15:00 SUNDAY LOPEZ MD Jul 31, 2017 11:19
--- NOTE | 2017-07-31 11:41 | CONS ---
DATE OF ADMISSION: 07/30/2017 DATE OF CONSULTATION: 07/30/2017 TYPE OF CONSULTATION: Cardiology REFERRING PHYSICIAN: Arti Decker MD REASON FOR EVALUATION: Chest pain HISTORY OF PRESENT ILLNESS: Ms. Ace is a 57-year-old woman with diabetes, hypertension, morbid obesity comes to the hospital now for evaluation of shortness of breath and pressure-like sy mptoms in the chest. The patient denies prior cardiac history. She does not report any chest pain prior. She said that she had prior evaluation in the hospital, but when I evaluated the records rev iewed. There is no evidence of any cardiac risk stratification. The patient has multiple risk fact ors for coronary artery disease. As such, it is likely that she will require restratification with a stress test for now we will trend the troponins. PAST MEDICAL HISTORY: 1. Hypertension. 2. Diabetes. 3. Morbid obesity. ALLERGIES: No known diagnosis. SOCIAL HISTORY: Does smoke, does not drink, does not use drugs. FAMILY HISTORY: Negative for sudden cardiac , premature coronary artery disease. MEDICATIONS: 1. He has Aspirin 81 mg p.o. once a day. 2. Lovenox ____ mg p.o. once daily. 3. Fluoxetine 20 mg. 4. Lisinopril 20 mg a day. 5. Pantoprazole 40 mg a day. 6. Coreg 6.25 mg p.o. b.i.d. 7. Atorvastatin. 8. Insulin on a sliding scale. REVIEW OF SYSTEMS: CONSTITUTIONAL: No fevers, no chills, no recent weight gain. HEENT: No changes in vision. RESPIRATORY: GASTROINTESTINAL: No nausea, vomiting, diarrhea, constipation. GENITOURINARY: No dysuria, hematuria. NEUROLOGIC: No focal neurologic. PSYCHIATRIC: Unknown. PHYSICAL EXAMINATION: VITAL SIGNS: Temperature is 99.3, heart rate 72, blood pressure 94/54. GENERAL: She is morbidly obese woman in no acute distress, alert and oriented x3, aware of her cond ition, speaking [place]ian. HEAD: Normocephalic, atraumatic. Eyes anicteric. NECK: Supple. JVD 6-7 cm. There is no lymphadenopathy or thyromegaly. HEART: Regular with soft holosystolic murmur at the apex. PMI is nondisplaced. There is no S3. LUNGS: Coarse at bases. ABDOMEN: Distended, bowel sounds present. There is no hepatosplenomegaly. . EXTREMITIES: Shows no evidence of edema. LABORATORY DATA: White blood cell count 7.7, hemoglobin 12.1, platelets 229. Sodium ___, potassi um 4.1, BUN is 14, creatinine 0.8. Troponin is negative at 0.012. ASSESSMENT AND PLAN: 1. Chest pain. The patient reports sets of troponins are negative. Continue medical evaluation to rule her out for ischemia. Consider further risk stratification is necessary. 2. Hypertension. Blood pressure well controlled. Continue medical optimization now will follow e xpectantly. 3. Morbid obesity, significant weight loss advised. 4. Diabetes. Continue diabetic optimization and care. 5. Abnormal EKG, nonspecific ST-T changes noted. No clear signs of ischemia. I would like to thank Dr. Decker for referring this patient for my evaluation. Dictated By: SUNDAY LOPEZ MD ML/NTS Conf#: [id number] DID#: [id number]
--- NOTE | 2017-07-31 12:50 | DS ---
Date/Time of Note Date/Time of Note DATE: 07/31/17 TIME: 12:47 Discharge Summary Admission/Discharge Info Admit Date/Time Jul 30, 2017 at 07:12 Discharge Date/Time July 31, 2017 Discharge Diagnosis 1. Chest pain No evidence of ACS No indication for inpatient stress test per cardiology, patient can have it done as an outpatient A1c is 6.7 and LDL within normal limits 2. Diabetes Continue home regimen A1c 6.7 3. Hypertension Resume home meds 4. Obesity Lifestyle changes have been advised Patient Condition: Good Hospital Course Patient is a 57-year-old female history of diabetes, hypertension, obesity and depression. Patient presents with chest pain, since was ruled out with negative troponins and EKG. Patient was seen by cardiology and recommendation was that patient does not need an inpatient stress test and can follow-up as an outpatient. Patient was advised for lifestyle changes as she is obese with diabetes and hypertension. On day of discharge patient no longer had any chest pain she had no other acute complaints her vitals, labs and physical exam are stable and questions are answered. Home Meds Active Scripts Ibuprofen* (Motrin*) 600 Mg Tab, 600 MG PO Q6, #20 TAB Prov:ABDULLAHI AMBRIZ MD 11/18/15 Reported Medications Empagliflozin (Jardiance) 10 Mg Tablet, 10 MG PO DAILY, TAB 07/30/17 Cholecalciferol* (Vitamin D3*) 2,000 Unit Cap, 2000 UNIT PO DAILY, CAP 10/30/15 Aspirin Ec (Aspir 81) 81 Mg Tablet.dr, 81 MG PO DAILY, #30 TAB 10/30/15 Lisinopril* (Lisinopril*) 20 Mg Tablet, 20 MG PO DAILY, TAB 06/13/14 Omeprazole* (Omeprazole*) 20 Mg Capsule.dr, 20 MG PO DAILY, CAP 06/13/14 Hydrochlorothiazide* (Hydrochlorothiazide*) 25 Mg Tab, 25 MG PO DAILY, TAB 06/13/14 Fluoxetine Hcl* (Fluoxetine Hcl*) 20 Mg Capsule, 20 MG PO DAILY, CAP 06/13/14 Metformin* (Glucophage*) 500 Mg Tab, 500 MG PO BID, TAB 06/13/14 Discontinued Reported Medications [Jardiance] No Conflict Check, 10 MG PO DAILY 05/25/15 Discontinued Scripts Levofloxacin* (Levaquin*) 500 Mg Tablet, 500 MG PO DAILY@06 for 7 Days, TAB Prov:CALI COHEN 02/26/17 Follow-up Plan F/U WITH YOUR PCP IN 1-2 WEEKS Primary Care Provider [facility] Time spent on discharge: > 30 minutes JAMES NEAL Jul 31, 2017 12:50
[2017-08-01] MEDS ORDERED: ASPIRIN 81 MG TAB PO SCH (09:00)
--- NOTE | 2017-08-01 10:53 | RADRPT ---
Echocardiogram Report Patient Name: SUKUMAR LUNDBERG Gender: Female Date: 1960 Study Date: 31-Jul-2017 [employer] Coordinator: ALLEGRA Location: I Ref. Physician: JAMES NEAL Quality: Adequate Procedures: Transthoracic echocardiogram with complete 2D, M-Mode, and Doppler examination. Indications: Chest Pain. 2D/M Mode Doppler Measurement Value Normal Ranges Measurement Value Normal Ranges AoR Diam MM 2.7 cm AV Peak Kobe 1.4 m/sec ACS MM 1.7 cm AV Peak PG 7.8 mmHg LVIDd 2D 4.8 3.5 - 5.6 cm LVOT Peak Kobe 0.9 m/sec LVIDs 2D 3.2 2.1 - 4.1 cm LVOT Peak PG 3.3 mmHg LVPWd 2D 0.7 0.6 - 1.1 cm MV E Peak Kobe 1.0 m/sec IVSd 2D 1.0 0.6 - 1.1 cm MV A Peak Kobe 0.6 m/sec EDV 2D 106.3 cm3 MV E/A 1.5 ESV 2D 33.1 cm3 MV Decel Time 173 msec LA Dimen 2D 3.5 2.3 - 4.0 cm MV Decel Hartley 6 MV E/A 1.5 PV Peak Kobe 0.9 m/sec PV Peak PG 3.0 mmHg Findings Left Ventricle: Normal left ventricular systolic function. Normal left ventricular cavity size. Normal left ventricular wall thickness. Ejection fraction is visually estimated at 60 %. Tissue Doppler/Mitral Doppler indices are within normal limits. E/E`=11. Right Ventricle: Normal right ventricular size. Normal right ventricular systolic function. Left Atrium: The left atrium is normal in size. Right Atrium: The right atrium is normal in size. Atrial Septum: Normal atrial septum. Mitral Valve: Normal appearance of the mitral valve. No mitral valve regurgitation is seen. Aortic Valve: Normal appearance of the aortic valve. No significant aortic stenosis or insufficiency. Tricuspid Valve: Normal appearance of the tricuspid valve. No evidence of tricuspid regurgitation. Pulmonic Valve: Normal pulmonic valve appearance. No evidence of pulmonic regurgitation. Pericardium: Normal pericardium with no significant pericardial effusion. No pleural effusion noted. Aorta: Normal aortic root. IVC: Normal size and normal respiratory collapse consistent with normal right atrial pressure. Pulmonary Artery: Normal pulmonary artery size. Conclusions Normal left ventricular systolic function. Normal left ventricular cavity size. Normal left ventricular wall thickness. Ejection fraction is visually estimated at 60 %. Tissue Doppler/Mitral Doppler indices are within normal limits. E/E`=11. Normal appearance of the mitral valve. No mitral valve regurgitation is seen. Normal appearance of the tricuspid valve. No evidence of tricuspid regurgitation. Electronically Signed By: Ephraim Kern 01-Aug-2017 10:53:07 -0800 Patient Name: SUKUMRA LUNDBERG Study Date: 31-Jul-2017 [id number]
== END 2017-07-31 13:47 | disposition home or self-care (01) ==
LOC: E/R 05:42 → TEL 07:12
PROVIDERS: ADMIT Internal Medicine; ATTEND Internal Medicine
DX: R07.9 Chest pain, unspecified (principal); I10 Essential (primary) hypertension; E11.9 Type 2 diabetes mellitus without complications; F32.9 Major depressive disorder, single episode, unspecified; Z79.82 Long term (current) use of aspirin; Z88.0 Allergy status to penicillin; E66.01 Morbid (severe) obesity due to excess calories; Z68.37 Body mass index [BMI] 37.0-37.9, adult; Z83.3 Family history of diabetes mellitus
CPT/HCPCS: 36415; 71010; 80048; 80061; 82550; 82553; 82962; 83036; 83735; 84100; 84436; 84479; 84484; 85025; 93005; 93306; 96374; J1650; J1815; Z7500; Z7502; Z7610; G0378

== ENCOUNTER 2017-08-03 12:58 | Inpatient (IN) | payer OTHER ==
[~2017-08-03] VITALS: Ht 157.5 cm; Wt 87.4 kg
[~2017-08-03 12:58] MED LIST changes: +EMPA10TA PO; -JARDIANCE PO; -LEVO500T72 PO
[2017-08-03 13:13] VITALS: Ht 157.5 cm; Wt 87.4 kg
[2017-08-03] MEDS ORDERED: ONDANSETRON 4 MG INJ IV STA (13:46)
[2017-08-03] MEDS ORDERED: morphine 4 MG/ML VIAL IV STA (13:46)
[2017-08-03] MEDS ORDERED: CEFTRIAXONE 1 GM/50 ML (PMX) 50 ML IVPB ONE (14:00)
[2017-08-03] MEDS ORDERED: IBUPROFEN 600 MG TAB PO ONE (14:00)
[2017-08-03] MEDS ORDERED: SOD CHLORIDE 0.9% 1,000 ML IV ONE (14:00)
[2017-08-03] MEDS ORDERED: ACETAMINOPHEN 325 MG TAB PO ONE (14:00)
[2017-08-03 14:25] LABS: BASOPHIL # 0.1 10^3/ul (0.0-0.1); BASOPHILS % 0.5 % (0.0-2.0); EOSINOPHILS % 0.3 % (0.0-7.0); HEMATOCRIT 48.2 % (37.0-47.0); HEMOGLOBIN 15.8 g/dl (12.0-16.0); LYMPHOCYTES # 0.9 10^3/ul (0.8-2.9); LYMPHOCYTES % 9.2 % (15.0-51.0); MEAN CORPUSCULAR HEMOGLOBIN 28.3 pg (29.0-33.0); MEAN CORPUSCULAR HGB CONC 32.8 g/dl (32.0-37.0); MEAN CORPUSCULAR VOLUME 86.4 fl (82.0-101.0); MEAN PLATELET VOLUME 9.6 fl (7.4-10.4); MONOCYTE # 0.7 10^3/ul (0.3-0.9); MONOCYTES % 7.3 % (0.0-11.0); NEUTROPHIL # 7.7 10^3/ul (1.6-7.5); NEUTROPHILS % 82.1 % (39.0-77.0); PLATELET COUNT 263 10^3/UL (140-415); RED BLOOD COUNT 5.58 10^6/ul (4.20-5.40); RED CELL DISTRIBUTION WIDTH 14.8 % (11.5-14.5); WHITE BLOOD COUNT 9.3 10^3/ul (4.8-10.8)
--- NOTE | 2017-08-03 14:39 | RADRPT ---
PROCEDURE: CT Temporal Bones. CLINICAL INDICATION: Right ear pain TECHNIQUE: A CT of the temporal bones was performed on a multidetector CT scanner utilizing high-r esolution axial images. Sagittal and coronal reconstructions were performed. CTDIvol = 47 mGy. To matilda DLP = 481 mGy*cm. One or more of the following dose reduction techniques were used: Automated e xposure control, Adjustment of the mA and/or kV according to patient size, and/or use of iterative r econstruction technique. DICOM images available. COMPARISON: Correlation head CT 02/23/2017 FINDINGS: RIGHT: External auditory canal wall is thickened and new from prior. Tympanic membrane is thickened. Ossicu lar chain is grossly intact. Partially opacified right middle ear cavity and right mastoid has progr essed since 02/23/2017. No aggressive erosive changes are identified. Sinus tympani, round window ni lola and facial recess are opacified. The facial nerve canal is unremarkable. Internal auditory canal , cochlea, semicircular canals, and vestibular aqueduct are normal in appearance. Sigmoid sinus plat e, jugular bulb and carotid canal are unremarkable. LEFT: External auditory canal is unremarkable. Tympanic membrane is not thickened. Ossicular chain is inta ct. Mastoid and middle ear are well aerated. Sinus tympani, round window niche and facial recess are aerated. The facial nerve canal is unremarkable. Internal auditory canal, cochlea, semicircular can als, and vestibular aqueduct are normal in appearance. Sigmoid sinus plate, jugular bulb and carotid canal are unremarkable. Mild scattered paranasal sinus mucosal thickening. IMPRESSION: Right temporal bone: External auditory canal wall is thickened and new from prior compatible with ot itis externa. Interval progression of partial opacification of the right middle ear cavity and right mastoid since 02/23/2017. This is compatible with otomastoiditis. No aggressive erosive changes are identified to suggest coalescent mastoiditis. Left temporal bone: Unremarkable. RPTAT: AA .Иван Villeda MD, MD Date Time Electronically viewed and signed by .Иван Villeda MD, on 08/03/2017 14:39 .T/
[2017-08-03 14:43] LABS: CALCIUM 10.3 mg/dl (8.4-10.2); CREATININE 0.96 mg/dl (0.44-1.00)
[2017-08-03] MEDS ORDERED: SODIUM CHLORIDE 0.9% 1L BAG IV* STA (14:53)
[2017-08-03] MEDS ORDERED: VANCOMYCIN 1 GM (PMX) 250 ML IVPB ONE (15:00)
[2017-08-03] MEDS ORDERED: LEVOFLOXACIN 750MG/D5W (PMX) 150 ML IVPB ONE (15:00)
--- NOTE | 2017-08-03 15:32 | RADRPT ---
PROCEDURE: Chest x-ray CLINICAL INDICATION: Shortness of breath TECHNIQUE: Chest single view COMPARISON: 07/30/2017 FINDINGS: The heart is normal in size. The pulmonary vessels are normal in caliber. As before there are mult iple bilateral calcified granulomas consistent with old granulomatous disease. There is new mild eulalio ateral lower lobe atelectasis. The costophrenic angles are sharp. Bony thorax is unremarkable. IMPRESSION: 1. New mild patchy bilateral lower lobe atelectasis. 2. Extensive old granulomatous disease RPTAT: HH .Thien Rojas MD, Date Time Electronically viewed and signed by .Thien Rojas MD, on 08/03/2017 15:32 .W/
--- NOTE | 2017-08-03 16:21 | ERD ---
ER Documentation Chief Complaint Chief Complaint R BREAST PAIN AND R EAR PAIN HPI Patient is a 57-year-old female who presents with gradual onset, constant, moderate to severe right ear pain and difficulty hearing for the last 3 days. She reports fever for the last 24 hours. She denies headache, vomiting. She also complains of 10 days of right-sided breast pain with a clear discharge. ROS All systems reviewed and are negative except as per history of present illness. Medications Home Meds Reported Medications Carvedilol* (Carvedilol*) 6.25 Mg Tablet, 6.25 MG PO DAILY, #60 TAB 08/03/17 Atorvastatin Calcium (Atorvastatin Calcium) 10 Mg Tablet, 10 MG PO QAM, #30 TAB 08/03/17 Aspirin Ec (Aspir 81) 81 Mg Tablet.dr, 81 MG PO DAILY, #30 TAB 10/30/15 Lisinopril* (Lisinopril*) 20 Mg Tablet, 20 MG PO DAILY, TAB 06/13/14 Omeprazole* (Omeprazole*) 20 Mg Capsule.dr, 20 MG PO DAILY, CAP 06/13/14 Hydrochlorothiazide* (Hydrochlorothiazide*) 25 Mg Tab, 25 MG PO DAILY, TAB 06/13/14 Fluoxetine Hcl* (Fluoxetine Hcl*) 20 Mg Capsule, 20 MG PO DAILY, CAP 06/13/14 Metformin* (Glucophage*) 500 Mg Tab, 500 MG PO BID, TAB 06/13/14 Discontinued Reported Medications Empagliflozin (Jardiance) 10 Mg Tablet, 10 MG PO DAILY, TAB 07/30/17 Cholecalciferol* (Vitamin D3*) 2,000 Unit Cap, 2000 UNIT PO DAILY, CAP 10/30/15 [Jardiance] No Conflict Check, 10 MG PO DAILY 05/25/15 Discontinued Scripts Ibuprofen* (Motrin*) 600 Mg Tab, 600 MG PO Q6, #20 TAB Prov:ABDULLAHI AMBRIZ MD 11/18/15 Levofloxacin* (Levaquin*) 500 Mg Tablet, 500 MG PO DAILY@06 for 7 Days, TAB Prov:CALI COHEN 02/26/17 Allergies Allergies: Coded Allergies: Penicillins (Unverified Allergy, Unknown, 08/03/17) PMhx/Soc Past medical history: Diabetes mellitus, hypertension Past surgical history: Hysterectomy, cholecystectomy, right shoulder, Hernia repair Social history: Denies tobacco, drinks rare alcohol History of Surgery: Yes (hyst, xuan, hernia, Rt shoulder) Anesthesia Reaction: No Hx Neurological Disorder: No Hx Respiratory Disorders: No Hx Cardiac Disorders: Yes (HTN) Hx Psychiatric Problems: Yes (depression) Hx Miscellaneous Medical Probl: No Hx Alcohol Use: No (socially) Hx Substance Use: No Hx Tobacco Use: No Smoking Status: Never smoker FmHx Noncontributory Physical Exam Vitals Vital Signs Date Time Temp Pulse Resp B/P Pulse Ox O2 Delivery O2 Flow Rate FiO2 08/03/17 18:12 79 20 117/67 93 Room Air 08/03/17 15:42 88 23 107/74 96 Room Air 08/03/17 13:13 102.7 122 18 132/84 95 Physical Exam Const: Alert, no acute distress Head: Atraumatic, Tenderness over the right mastoid Eyes: Normal Conjunctiva, No pallor, no icterus ENT: Erythema, exudate and edema to external ear canal and extending onto the right pinna. Normal external Nose and Mouth. Mucous membranes moist Neck: Full range of motion. No meningismus. Resp: Clear to auscultation bilaterally, No wheezes, no rales Breast: No erythema or warmth. No expressible discharge. Mild tenderness without discrete mass or fluctuance deep to the areola. Cardio: Mild tachycardia, regular rhythm, no murmurs Abd: Soft, non tender, non distended. Skin: No petechiae or rashes Back: No midline or flank tenderness Ext: No cyanosis, or edema Neur: Awake and alert, Cranial nerves II through XII intact bilaterally, strength and sensation full in 4 extremities. Psych: Normal Mood and Affect Result Diagram: 08/03/17 1418 08/03/17 1418 Results 24 hrs Laboratory Tests Test 08/03/17 14:18 08/03/17 15:50 White Blood Count 9.310^3/ul Red Blood Count 5.5810^6/ul Hemoglobin 15.8g/dl Hematocrit 48.2% Mean Corpuscular Volume 86.4fl Mean Corpuscular Hemoglobin 28.3pg Mean Corpuscular Hemoglobin Concent 32.8g/dl Red Cell Distribution Width 14.8% Platelet Count 99501^3/UL Mean Platelet Volume 9.6fl Neutrophils % 82.1% Lymphocytes % 9.2% Monocytes % 7.3% Eosinophils % 0.3% Basophils % 0.5% Nucleated Red Blood Cells % 0.0/100WBC Neutrophils # 7.710^3/ul Lymphocytes # 0.910^3/ul Monocytes # 0.710^3/ul Eosinophils # 0.010^3/ul Basophils # 0.110^3/ul Nucleated Red Blood Cells # 0.010^3/ul Sodium Level 140mmol/L Potassium Level 4.0mmol/L Chloride Level 96mmol/L Carbon Dioxide Level 29mmol/L Anion Gap 19 Blood Urea Nitrogen 12mg/dl Creatinine 0.96mg/dl Glucose Level 133mg/dl Calcium Level 10.3mg/dl Troponin I < 0.012ng/ml Prothrombin Time 14.3Sec Prothrombin Time Ratio 1.1 INR International Normalized Ratio 1.11 Activated Partial Thromboplast Time 30.9Sec Lactic Acid Level 1.3mmol/L Current Medications Medications (Trade) Dose Ordered Sig/Bob Route PRN Reason Start Time Stop Time Status Last Admin Dose Admin Ibuprofen (Motrin) 600 mg ONCE ONCE PO 08/03/17 14:00 08/03/17 14:01 DC 08/03/17 13:50 Acetaminophen 650 mg 650 mg ONCE ONCE PO 08/03/17 14:00 08/03/17 14:01 DC 08/03/17 13:50 Sodium Chloride (NS) 1,000 ml @ 1,000 mls/hr Q1H ONCE IV 08/03/17 14:00 08/03/17 14:59 DC 08/03/17 14:45 Morphine Sulfate (morphine) 4 mg ONCE STAT IV 08/03/17 13:46 08/03/17 13:50 DC 08/03/17 14:51 Ondansetron HCl 4 mg 4 mg ONCE STAT IV 08/03/17 13:46 08/03/17 13:50 DC 08/03/17 14:50 Ceftriaxone Sodium (Rocephin) 50 ml @ 100 mls/hr ONCE ONCE IVPB 08/03/17 14:00 08/03/17 14:29 DC 08/03/17 16:35 Sodium Chloride 2710 ml 2,710 ml BOLUS OVER 2 HOURS STAT IV* 08/03/17 14:53 08/03/17 14:58 DC 08/03/17 16:32 Vancomycin HCl 250 ml @ 125 mls/hr ONCE ONCE IVPB 08/03/17 15:00 08/03/17 16:59 DC 08/03/17 19:11 Levofloxacin/ Dextrose (Levaquin 750 Mg/ D5W 150 ml (Pmx)) 150 ml @ 100 mls/hr ONCE ONCE IVPB 08/03/17 15:00 08/03/17 16:29 DC 08/03/17 17:03 Ondansetron HCl (Zofran Inj) 4 mg BRIDGE ORDER PRN IV NAUSEA AND/OR VOMITING 08/03/17 19:30 08/04/17 19:29 Acetaminophen (Tylenol Tab) 650 mg ER BRIDGE PRN PO MILD PAIN/FEVER 08/03/17 19:30 08/04/17 19:29 Aspirin (Halfprin) 81 mg DAILY PO 08/04/17 09:00 Atorvastatin Calcium (Lipitor) 10 mg QAM PO 08/04/17 09:00 Carvedilol (Coreg) 6.25 mg DAILY PO 08/04/17 09:00 Fluoxetine HCl (Prozac) 20 mg DAILY PO 08/04/17 09:00 Hydrochlorothiazide (Hydrochlorothiazide) 25 mg DAILY PO 08/04/17 09:00 Lisinopril (Zestril) 20 mg DAILY PO 08/04/17 09:00 Miscellaneous Information 20 mg DAILY PO 08/04/17 09:00 UNV Pantoprazole (Protonix Tab) 40 mg DAILY@06 PO 08/04/17 06:00 Procedures/MDM EKG read by me: Time 1524, rate 93 Rhythm: Normal sinus [place]: Left axis deviation Intervals: Normal ST-T waves: no ischemic changes, T-wave flattening Ectopy: No Q-waves: No Impression: No evidence of ischemia or arrhythmia MDM: Patient is a 57-year-old diabetic female who presents with fever and right ear pain for 3 days. She also had tachycardia. Her exam was concerning for malignant otitis externa, and CT scan suggest mastoiditis. She is given IV fluids and broad-spectrum antibiotics. Cultures were sent. Her glucose is well controlled. Her vital signs improved with treatment. She will be admitted for further inpatient treatment and possible ENT consult as needed. Discussed with Dr. Segura. The patient also complains of subacute right breast pain with a fairly benign exam. Ultrasound is pending. Departure Diagnosis: Primary Impression: Malignant otitis externa Chronicity: acute Laterality: right Qualified Code: H60.21 - Acute malignant otitis externa of right ear Additional Impressions: Acute mastoiditis Laterality: right Qualified Code: H70.001 - Acute mastoiditis of right side Diabetes mellitus Diabetes mellitus type: type 2 Breast pain Condition: DANAY Merrill MD Aug 03, 2017 16:21
[2017-08-03 16:27] LABS: INR 1.11; PARTIAL THROMBOPLASTIN TIME 30.9 Sec (25.0-35.0); PROTIME 14.3 Sec (12.2-14.2); PT RATIO 1.1
[2017-08-03] MEDS ORDERED: ATOR10TA65 PO (16:44)
[2017-08-03] MEDS ORDERED: CARV6.2579 PO (16:45)
[2017-08-03 19:30] VITALS: TEMP 98.2
[2017-08-03] MEDS ORDERED: ACETAMINOPHEN 325 MG TAB PO PRN (19:30)
[2017-08-03] MEDS ORDERED: ONDANSETRON 4 MG INJ IV PRN ×2 (19:30→23:00)
--- NOTE | 2017-08-03 19:53 | RADRPT ---
PROCEDURE: Right breast ultrasound CLINICAL INDICATION: Right breast pain TECHNIQUE: Ultrasound of the right breast and axilla was performed. COMPARISON: None available FINDINGS: No cyst is seen. No discrete solid mass is seen on ultrasound. No abscess is seen. No right axillary lymph node is seen. IMPRESSION: No sonographic abnormality seen in the right breast. Recommendation: If there is focal right breast pain, diagnostic mammography is recommended. Clinical evaluation and follow-up is recommended. BIRADS 1 - negative RPTAT: HJES .Niraj Tidwell MD, MD Date Time Electronically viewed and signed by .Niraj Tidwell MD, MD on 08/03/2017 19:53 .S/
[2017-08-03 20:00] VITALS: BP 120/62; RESP 19
[2017-08-03 21:00] VITALS: BP 120/60; RESP 19
[2017-08-03] MEDS ORDERED: GLUCOSE GEL 15 GRAM TUBE PO PRN ×2 (22:15)
[2017-08-03] MEDS ORDERED: DEXTROSE 50% 50 ML SYRINGE IV PRN ×2 (22:15)
[2017-08-03] MEDS ORDERED: GLUCOSE GEL 15 GRAM TUBE BUCCAL PRN (22:15)
[2017-08-03] MEDS ORDERED: GLUCAGON 1 MG INJ IM PRN (22:15)
[2017-08-03] MEDS ORDERED: KETOROLAC 30 MG INJ IV PRN (23:00)
[2017-08-03] MEDS ORDERED: NACL 0.9% 3 ML SYG IV SCH (23:00)
[2017-08-03] MEDS ORDERED: HYDROCODONE/APAP (5/325) TAB PO PRN (23:00)
[2017-08-03] MEDS ORDERED: DOCUSATE SODIUM 100 MG CAP PO PRN (23:00)
[2017-08-03] MEDS ORDERED: VANCOMYCIN IV PER PHARMACY XX SCH (23:00)
[2017-08-03] MEDS ORDERED: BISACODYL (EC) 5 MG TAB PO PRN (23:00)
[2017-08-03] MEDS: CIPROFLOXACIN 400MG/D5W 200 ML IVPB SCH (23:15)
[2017-08-04] VITALS (11 sets, daily range): BP systolic 87–121; BP diastolic 55–67; PULSE 76–128; RESP 17–20
[2017-08-04] MEDS: ACCU-CHEK XX SCH (02:00)
[2017-08-04] MEDS ORDERED: SOD CHLORIDE 0.9% 1,000 ML IV ONE ×3 (04:30→12:00)
[2017-08-04 04:39] LABS: AADO2 Arterial 44.9 mmHg (7.0-24.0); Allen Test ACCEPTAB; Arterial Base Excess -6.8 mmol/L (-3.0-3); Arterial Fraction of Oxyhgb 87.8 % (93.0-99.0); Arterial HCO3 18.5 mmol/L (22.0-26.0); Arterial MetHb 0.2 % (0.0-1.5); Arterial Total Hemglobin 16.3 g/dl (12.0-18.0); MODE ROOM AIR
[2017-08-04] MEDS ORDERED: ALBUTEROL/IPRATROPIUM (NEB) 3 ML AMP HHN ONE ×2 (04:49→05:00)
[2017-08-04] MEDS ORDERED: VANCOMYCIN 1 GM in NS 250 ML IVPB SCH (05:00)
[2017-08-04 05:47] LABS: BASOPHILS % 0.4 % (0.0-2.0); EOSINOPHILS % 0.4 % (0.0-7.0); HEMATOCRIT 45.3 % (37.0-47.0); HEMOGLOBIN 14.5 g/dl (12.0-16.0); LYMPHOCYTES # 0.6 10^3/ul (0.8-2.9); LYMPHOCYTES % 8.5 % (15.0-51.0); MEAN CORPUSCULAR HEMOGLOBIN 28.6 pg (29.0-33.0); MEAN CORPUSCULAR VOLUME 89.3 fl (82.0-101.0); MEAN PLATELET VOLUME 9.8 fl (7.4-10.4); MONOCYTE # 0.3 10^3/ul (0.3-0.9); MONOCYTES % 3.8 % (0.0-11.0); NEUTROPHIL # 6.4 10^3/ul (1.6-7.5); NEUTROPHILS % 86.1 % (39.0-77.0); PLATELET COUNT 192 10^3/UL (140-415); RED BLOOD COUNT 5.07 10^6/ul (4.20-5.40); RED CELL DISTRIBUTION WIDTH 15.2 % (11.5-14.5); WHITE BLOOD COUNT 7.4 10^3/ul (4.8-10.8)
[2017-08-04] MEDS ORDERED: PANTOPRAZOLE (EC) 40 MG TAB PO SCH (06:00)
[2017-08-04 06:03] LABS: ALBUMIN 3.9 g/dl (3.3-4.9); ALBUMIN/GLOBULIN RATIO 1.05; BILIRUBIN,INDIRECT 0.5 mg/dl (0-1.1); BILIRUBIN,TOTAL 0.5 mg/dl (0.2-1.3); CALCIUM 9.4 mg/dl (8.4-10.2); CHOL/HDL RATIO 3.4 RATIO; CREATININE 0.92 mg/dl (0.44-1.00); MAGNESIUM 1.5 mg/dl (1.7-2.5); POTASSIUM 4.8 mmol/L (3.5-5.1); TOTAL PROTEIN 7.6 g/dl (6.1-8.1)
[2017-08-04 06:34] LABS: THYROID STIMULATING HORMONE 0.474 MIU/L (0.465-4.680)
--- NOTE | 2017-08-04 07:25 | HP ---
Date/Time of Note Date/Time of Note DATE: 08/04/17 TIME: 06:33 Assessment/Plan VTE Prophylaxis VTE Prophylaxis Intervention: SCD's Lines/Catheters IV [facility]ter Type (from [facility]): Saline Lock Assessment/Plan Chief Complaint/Hosp Course Is a 57-year-old female who was initially admitted to the [facility] floor who is now being transferred to telemetry for: #1 Right ear otitis externa: At the current time on visual examination there does not appear to be any abnormality however on CAT scan there does appear to be signs of otitis externa. She was given vancomycin and ceftriaxone in the ED. Was continued on vancomycin and started on ciprofloxacin. Pain control as indicated. Zofran for nausea. Consider ENT consultation and possibly ID consultation. At the current time as the patient also was seen in records I will also order a stat lactate and ABG. And transfer the patient to telemetry. Also give her another normal saline fluid bolus. #2 otomastoiditis: At the current time there appeared to be no signs of erosive changes on the CAT scan. Will continue to treat as per #1. Sitter ENT consultation #3 hypertension: We will continue monitor patient's blood pressures and continue home medications. Will need to keep a close eye on patient's blood pressures as there is concern for possible sepsis we may need to hold patient's blood pressure medications. #4 diabetes mellitus: Diabetic diet, Initiate insulin sliding scale, will hold metformin #5 Hyperlipidemia: Continue statin #6 mood disorder: Continue fluoxetine #7 GERD: Continue PPI #8 DVT GI prophylaxis: SCDs, PPI Further treatment strategy will be implemented as per the clinical course. Will need to follow-up on the patient's lactate and ABG results. Problems: HPI/ROS Admit Date/Time Admit Date/Time Aug 03, 2017 at 20:58 Hx of Present Illness cc: right ear pain, right breast pain This is a 57-year-old female who presents with gradual onset, constant, moderate to severe right ear pain and difficulty hearing for the last 3 days. She reports fever for the last 24 hours. She denies headache, vomiting. She also complains of 10 days of right-sided breast pain with a clear discharge. On examination of the patient at the bedside the patient was noted to having rigors and chills. Her temperature was normal at 98.6. Her blood pressure was within acceptable values. She was tachycardic. Warming measures were initiated. And stat ABG and lactic acid were ordered. Patient was subsequently transferred to telemetry. Allergies: Penicillin Medications: See BC ROS Const: As per HPI Eyes : No pain discharge or redness or change in visual acuity ENT: As per HPI Respiratory: No shortness of breath, cough, sputum, wheezing, or pleuritic pain Cardiovascular: No chest pain, palpitation, PND, or edema GI : no change in appetite, abdominal pain, nausea, vomiting, diarrhea, constipation, or change in the color his stool Genitourinary: No dysuria, hematuria, flank pain , discharge or CVA tenderness Musculoskeletal: No joint pain, back pain, neck pain, restricted range of motion in neck or joints Skin: No rash, bruising or hives Neuro: No headache, dizziness, syncope, seizure, focal weakness Endocrine: No polyuria, polydipsia, temperature intolerance Psych: No hallucination, depression, anxiety or suicidal ideation PMH/Family/Social Past Medical History Hypertension, diabetes Past Surgical History Kidney stone removal, cholecystectomy, right shoulder surgery, hysterectomy, eye surgeries bilaterally? Family History Significant Family History: no pertinent family hx Social History Alcohol Use: occasionally Smoking Status: Never smoker Drug Use: none Exam/Review of Systems Vital Signs Vitals Vital Signs Date Time Temp Pulse Resp B/P Pulse Ox O2 Delivery O2 Flow Rate FiO2 08/04/17 05:51 99 6.0 08/04/17 04:55 123 20 Simple Mask 08/04/17 04:37 120/60 08/04/17 04:18 98.8 Intake and Output 08/03/17 08/03/17 08/04/17 15:00 23:00 07:00 Intake Total 400 ml 750 ml Output Total 1200 ml Balance 400 ml -450 ml Exam Exam General: Was seen and examined at the bedside she was shivering, right ring. It was difficult initially to speak in full sentences however she eventually was able to calm down once we were able to warmer with blankets. HEENT: Atraumatic, normocephalic. The pupils are equal, round and reactive. Extraocular motor are intact no discharge or erythema noted of the bilateral external auditory canal. Patient deferred in her ear examination at the current time secondary to her feeling cold. Neck: Supple with full range of motion. No rigidity or meningismus Chest: Nontender Lungs: Clear to auscultation bilaterally no crackles rales or wheezing Heart: Sinus tachycardia Abdomen: Soft , nontender, nondistended , bowel sounds are present. No guarding no rebound tenderness , No masses or organomegaly. No costovertebral temporal angle mass Extremities: Normal to inspection, no edema no cyanosis Neurologic: Normal mental status, speech normal, cranial nerves II through XII are intact, motor and sensory are intact, no focal weakness Additional Comments PROCEDURE: CT Temporal Bones. CLINICAL INDICATION: Right ear pain TECHNIQUE: A CT of the temporal bones was performed on a multidetector CT scanner utilizing high-resolution axial images. Sagittal and coronal reconstructions were performed. CTDIvol = 47 mGy. Total DLP = 481 mGy*cm. One or more of the following dose reduction techniques were used: Automated exposure control, Adjustment of the mA and/or kV according to patient size, and/ or use of iterative reconstruction technique. DICOM images available. COMPARISON: Correlation head CT 02/23/2017 FINDINGS: RIGHT: External auditory canal wall is thickened and new from prior. Tympanic membrane is thickened. Ossicular chain is grossly intact. Partially opacified right middle ear cavity and right mastoid has progressed since 02/23/2017. No aggressive erosive changes are identified. Sinus tympani, round window niche and facial recess are opacified. The facial nerve canal is unremarkable. Internal auditory canal, cochlea, semicircular canals, and vestibular aqueduct are normal in appearance. Sigmoid sinus plate, jugular bulb and carotid canal are unremarkable. LEFT: External auditory canal is unremarkable. Tympanic membrane is not thickened. Ossicular chain is intact. Mastoid and middle ear are well aerated. Sinus tympani, round window niche and facial recess are aerated. The facial nerve canal is unremarkable. Internal auditory canal, cochlea, semicircular canals, and vestibular aqueduct are normal in appearance. Sigmoid sinus plate, jugular bulb and carotid canal are unremarkable. Mild scattered paranasal sinus mucosal thickening. IMPRESSION: Right temporal bone: External auditory canal wall is thickened and new from prior compatible with otitis externa. Interval progression of partial opacification of the right middle ear cavity and right mastoid since 02/23/2017. This is compatible with otomastoiditis. No aggressive erosive changes are identified to suggest coalescent mastoiditis. Left temporal bone: Unremarkable. RPTAT: AA .Иван Villeda MD, MD Date Time Electronically viewed and signed by .Иван Villeda MD, MD on 08/03/2017 14:39 .T/ CC: ARIADNA HANCOCK PA-C PROCEDURE: Right breast ultrasound CLINICAL INDICATION: Right breast pain TECHNIQUE: Ultrasound of the right breast and axilla was performed. COMPARISON: None available FINDINGS: No cyst is seen. No discrete solid mass is seen on ultrasound. No abscess is seen. No right axillary lymph node is seen. IMPRESSION: No sonographic abnormality seen in the right breast. Recommendation: If there is focal right breast pain, diagnostic mammography is recommended. Clinical evaluation and follow-up is recommended. BIRADS 1 - negative RPTAT: HJES .Niraj Tidwell MD, MD Date Time Electronically viewed and signed by .Niraj Tidwell MD, MD on 08/03/2017 19:53 .S/ CC: ARIADNA HANCOCK PA-C PROCEDURE: Chest x-ray CLINICAL INDICATION: Shortness of breath TECHNIQUE: Chest single view COMPARISON: 07/30/2017 FINDINGS: The heart is normal in size. The pulmonary vessels are normal in caliber. As before there are multiple bilateral calcified granulomas consistent with old granulomatous disease. There is new mild bilateral lower lobe atelectasis. The costophrenic angles are sharp. Bony thorax is unremarkable. IMPRESSION: 1. New mild patchy bilateral lower lobe atelectasis. 2. Extensive old granulomatous disease RPTAT: HH .Thien Rojas MD, MD Date Time Electronically viewed and signed by .Thien Rojas MD, MD on 08/03/2017 15:32 .W/ CC: DANAY POTTS MD Labs Result Diagram: 08/04/176 08/04/17 0446 Medications Medications Current Medications Aspirin (Halfprin) 81 mg DAILY PO ; Start 08/04/17 at 09:00 Atorvastatin Calcium (Lipitor) 10 mg QAM PO ; Start 08/04/17 at 09:00 Carvedilol (Coreg) 6.25 mg DAILY PO ; Start 08/04/17 at 09:00 Fluoxetine HCl (Prozac) 20 mg DAILY PO ; Start 08/04/17 at 09:00 Hydrochlorothiazide (Hydrochlorothiazide) 25 mg DAILY PO ; Start 08/04/17 at 09 :00 Lisinopril (Zestril) 20 mg DAILY PO ; Start 08/04/17 at 09:00 Pantoprazole (Protonix Tab) 40 mg DAILY@06 PO Last administered on 08/04/17t 05:36; Admin Dose 40 MG; Start 08/04/17 at 06:00 Diagnostic Test (Pha) (Accu-Chek) 1 ea 02 XX ; Start 08/04/17 at 02:00 Miscellaneous Information 1 ea NOTE XX ; Start 08/03/17 at 22:15 Glucose (Glutose) 15 gm Q15M PRN PO DECREASED GLUCOSE; Start 08/03/17 at 22:15 Glucose (Glutose) 22.5 gm Q15M PRN PO DECREASED GLUCOSE; Start 08/03/17 at 22: 15 Dextrose (D50w Syringe) 25 ml Q15M PRN IV DECREASED GLUCOSE; Start 08/03/17 at 22:15 Dextrose (D50w Syringe) 50 ml Q15M PRN IV DECREASED GLUCOSE; Start 08/03/17 at 22:15 Glucagon (Glucagen) 1 mg Q15M PRN IM DECREASED GLUCOSE; Start 08/03/17 at 22: 15 Glucose (Glutose) 15 gm Q15M PRN BUCCAL DECREASED GLUCOSE; Start 08/03/17 at 22:15 Ondansetron HCl (Zofran Inj) 4 mg Q6H PRN IV NAUSEA AND/OR VOMITING; Start at 23:00 Acetaminophen (Tylenol Tab) 650 mg Q6H PRN PO PAIN LEVEL 1-3 OR FEVER; Start 08/03/17 at 23:00 Docusate Sodium (Colace) 100 mg Q12H PRN PO CONSTIPATION; Start 08/03/17 at 23 :00 Bisacodyl 5 mg 5 mg DAILY PRN PO CONSTIPATION; Start 08/03/17 at 23:00 Ciprofloxacin/ Dextrose (Cipro Ivpb) 200 ml @ 200 mls/hr Q12 IVPB Last administered on 08/03/17t 23:15; Admin Dose 200 MLS/HR; Start 08/03/17 at 23: 00 Ketorolac Tromethamine 30 mg 30 mg Q6H PRN IV PAIN; Start 08/03/17 at 23:00; Stop 08/06/17 at 22:59 Vancomycin HCl 250 ml @ 125 mls/hr Q12H IVPB ; Start 08/04/17 at 05:00 Sodium Chloride (NS) 1,000 ml @ 1,000 mls/hr Q1H ONCE IV Last administered on 08/04/17 06:31; Admin Dose 1,000 MLS/HR; Start 08/04/17 at 06:30; Stop 08/04 at 07:29 PATRICIA ROJAS Aug 04, 2017 07:19
[2017-08-04] MEDS: INSULIN ASPART [NOVOLOG] 3 ML PEN SC SCH ×4 (08:00→20:36)
[2017-08-04] MEDS ORDERED: NON-FORMULARY/PATIENT OWN MED (Omeprazole* 20 MG) PO SCH (09:00)
[2017-08-04] MEDS ORDERED: HYDROCHLOROTHIAZIDE 25 MG TAB PO SCH (09:00)
[2017-08-04] MEDS ORDERED: LISINOPRIL 20 MG TAB PO SCH (09:00)
[2017-08-04] MEDS: ATORVASTATIN 10 MG TAB PO SCH (09:47)
[2017-08-04] MEDS: ASPIRIN (EC) 81 MG TAB PO SCH (09:47)
[2017-08-04] MEDS: SOD CHLORIDE 0.9% 1,000 ML IV SCH ×2 (09:48→20:37)
--- NOTE | 2017-08-04 10:06 | CONS ---
DATE OF ADMISSION: 08/03/2017 DATE OF CONSULTATION: NEPHROLOGY CONSULTATION REASON FOR CONSULTATION: Lactic acidosis. PHYSICIAN REQUESTING CONSULT: Dr. Bonilla. HISTORY OF PRESENT ILLNESS: This is a 57-year-old female with a past medical history of diabetes, d yslipidemia, obesity, hypertension who presents to [facility] with difficulty hear ing the last 3 days. The patient states she has had severe right ear pain with difficulty hearing, also complaining of discharge. The patient upon arrival was noted to have a temperature of 98.6. S he had initial laboratory data which showed lactic acid of 1.3. The patient in the emergency room w as given IV fluids, IV antibiotics and admitted to med/surg for further evaluation. While on med/gu rg, the patient became hypotensive, went into respiratory distress and was transferred to telemetry with increase in lactic acid to 6.1. There have been no reports of hemoptysis, hematemesis, hematoc hezia. PAST MEDICAL HISTORY: As stated above, history of diabetes, dyslipidemia, hypertension and obesity. PAST SURGICAL HISTORY: The patient had right shoulder , hysterectomy, cholecystectomy. FAMILY HISTORY: Noncontributory. MEDICATIONS: The patient's medications have been reviewed. SOCIAL HISTORY: Does not drink, smoke or do drugs. REVIEW OF SYSTEMS: A 14-point review of systems was conducted. Pertinent positives stated in HPI, otherwise negative. PHYSICAL EXAMINATION: VITAL SIGNS: Blood pressure is 94/59, respiratory rate 20, pulse 108, temperature 99.4. HEENT: Head is normocephalic. Pupils are reactive to light. NECK: Supple. HEART: Regular rate. LUNGS: Show diminished breath sounds at the base. ABDOMEN: Soft, nontender to palpation. No rebound or guarding. EXTREMITIES: Negative for clubbing, cyanosis, no edema. DERMATOLOGIC: No rashes. MUSCULOSKELETAL: No joint effusions. NEUROLOGIC: No focal deficits. LABORATORY DATA: Shows sodium 143, potassium 4.8, chloride 100, BUN 13, creatinine 0.92. Lactic ac id 6.1, magnesium 1.5. White count 7.4, hemoglobin 14.5, platelet count is 192. ASSESSMENT AND PLAN: This is a 57-year-old female who presents with: 1. Lactic acidosis. Etiology is likely secondary to severe sepsis, pending shock. Other possibili ties such as a type B lactic acidosis is less likely given the patient's clinical presentation. My recommendation would be to continue aggressive IV hydration to maintain systolic pressures above 100 . Continue IV antibiotics. We will monitor serial lactic acid levels closely. 2. Hypomagnesemia. We will replete with magnesium sulfate. 3. Severe sepsis secondary to otitis externa, otomastoiditis. Continue current treatment plan of I V fluids, IV antibiotic therapy. 4. Diabetes. Continue current insulin regimen. 5. Dyslipidemia. Continue statin therapy. 6. Gastrointestinal and deep venous thrombosis prophylaxis. Thank you, Dr. Bonilla, for this interesting consult. It will be a pleasure to follow patient with you throughout the hospital course. Dictated By: SUSI BOWSER DO NR/NTS Conf#: [id number] DID#: [id number] CC: JOSE VELEZ MD;*EndCC*
[2017-08-04] MEDS: CIPROFLOXACIN 400MG/D5W 200 ML IVPB SCH (11:38)
[2017-08-04] MEDS: FLUOXETINE 20 MG CAP PO SCH (11:38)
[2017-08-04 12:31] LABS: ADD UMIC YES; UR ASCORBIC ACID NEGATIVE (NEGATIVE); UR BILIRUBIN (Dip) NEGATIVE (NEGATIVE); UR BLOOD (Dip) 1+ mg/dL (NEGATIVE); UR CLARITY CLEAR (CLEAR); UR COLOR YELLOW (YELLOW); UR GLUCOSE (Dip) 3+ mg/dL (NEGATIVE); UR KETONES (Dip) 2+ mg/dL (NEGATIVE); UR LEUKOCYTE ESTERASE (Dip) NEGATIVE Leu/ul (NEGATIVE); UR NITRITE (Dip) NEGATIVE (NEGATIVE); UR NONSQUAMOUS EPITHELIAL CELL 1 /HPF (NONE SEEN); UR RBC 9 /HPF (0-5); UR SPECIFIC GRAVITY (Dip) 1.025 (1.003-1.030); UR SQUAMOUS EPITHELIAL CELL FEW /HPF (FEW); UR TOTAL PROTEIN (Dip) 1+ mg/dl (NEGATIVE); UR UROBILINOGEN (Dip) 1+ mg/dL (NEGATIVE)
--- NOTE | 2017-08-04 13:00 | PN ---
Date/Time of Note Date/Time of Note DATE: 08/04/17 TIME: 12:59 Assessment/Plan VTE Prophylaxis VTE Prophylaxis Intervention: SCD's Lines/Catheters IV Catheter Type (from Nrsg): Saline Lock Urinary Cath still in place: No Assessment/Plan Assessment/Plan 57 yo F with obesity, DM, admitted for 3 days of decreased hearing in R ear found to have R sided otitis externa with otomastoiditis PLAN cont abx ENT evaluation to see if surgical drainage may be of assistance. Message left with Dr Evans's office at 130pm pain control hold home BP meds given BP on low side today DM2 control with SSI Subjective 24 Hr Interval Summary Free Text/Dictation Pt reports ear pain still present Exam/Review of Systems Vital Signs Vitals Vital Signs Date Time Temp Pulse Resp B/P Pulse Ox O2 Delivery O2 Flow Rate FiO2 08/04/17 12:10 88 08/04/17 12:07 98.1 20 87/64 100 08/04/17 08:00 Nasal Cannula 2.0 Intake and Output 08/03/17 08/03/17 08/04/17 14:59 22:59 06:59 Intake Total 400 ml 750 ml Output Total 1200 ml Balance 400 ml -450 ml Exam laying flat L EAC clear but TM bulging R EAC so swollen and inflamed I was unable to insert otoscope far enough to visualize TM 2/2 patient pain +ttp and redness of R preauricular LNs no mrg lungs clear abd soft no edema labs noted Results Result Diagram: 08/04/17 0446 08/04/17 0446 Results 24 hrs Laboratory Tests Test 08/03/17 14:18 08/03/17 15:50 08/04/17 04:19 08/04/17 04:46 White Blood Count 9.3 # 7.4 # Red Blood Count 5.58 #H 5.07 Hemoglobin 15.8 # 14.5 Hematocrit 48.2 H 45.3 Mean Corpuscular Volume 86.4 89.3 Mean Corpuscular Hemoglobin 28.3 L 28.6 L Mean Corpuscular Hemoglobin Concent 32.8 32.0 Red Cell Distribution Width 14.8 H 15.2 H Platelet Count 263 # 192 # Mean Platelet Volume 9.6 9.8 Neutrophils % 82.1 H 86.1 H Lymphocytes % 9.2 L 8.5 L Monocytes % 7.3 3.8 Eosinophils % 0.3 0.4 Basophils % 0.5 0.4 Nucleated Red Blood Cells % 0.0 0.0 Neutrophils # 7.7 H 6.4 Lymphocytes # 0.9 0.6 L Monocytes # 0.7 0.3 Eosinophils # 0.0 0.0 Basophils # 0.1 0.0 Nucleated Red Blood Cells # 0.0 0.0 Sodium Level 140 143 Potassium Level 4.0 4.8 Chloride Level 96 L 100 Carbon Dioxide Level 29 25 Anion Gap 19 H 23 H Blood Urea Nitrogen 12 13 Creatinine 0.96 0.92 Glucose Level 133 126 Hemoglobin A1c 6.6 H Calcium Level 10.3 H 9.4 Troponin I < 0.012 Prothrombin Time 14.3 H Prothrombin Time Ratio 1.1 INR International Normalized Ratio 1.11 Activated Partial Thromboplast Time 30.9 Lactic Acid Level 1.3 6.1 *H Blood Gas Specimen Source Blood arterial Arterial Blood Date Drawn 08/04/2017 4:30:32 AM Arterial Blood pH (Temp corrected) 7.320 L Arterial Blood pCO2 (Temp correct) 36.7 Arterial Blood pO2 (Temp corrected) 60.9 L Arterial Blood HCO3 18.5 L Arterial Blood Base Excess -6.8 L Arterial Blood Oxygen Saturation 88.9 L Ronald Test ACCEPTAB Arterial Blood Gas Puncture Site Right Radial Arterial Blood Carboxyhemoglobin 1.0 Arterial Blood Methemoglobin 0.2 Blood Gas A-a O2 Differential 44.9 H Oxyhemoglobin Percent 87.8 L Total Hemoglobin 16.3 Blood Gas Temperature 37.0 Blood Gas Actual Respiration Rate 22 Blood Gas Modality ROOM AIR FiO2 21.0 Blood Gas Notified Whom MM Blood Gas Notified Time 08/04/2017 4:39:02 AM Magnesium Level 1.5 L Total Bilirubin 0.5 Direct Bilirubin 0.00 Indirect Bilirubin 0.5 Aspartate Amino Transf (AST/SGOT) 69 H Alanine Aminotransferase (ALT/SGPT) 54 Alkaline Phosphatase 99 Total Protein 7.6 Albumin 3.9 Globulin 3.70 H Albumin/Globulin Ratio 1.05 Triglycerides Level 187 H Cholesterol Level 111 LDL Cholesterol, Calculated 42 HDL Cholesterol 32 L Cholesterol/HDL Ratio 3.4 Thyroid Stimulating Hormone (TSH) 0.474 Test 08/04/17 04:55 08/04/17 07:55 08/04/17 11:00 08/04/17 11:42 Bedside Glucose 120 104 123 Urine Color YELLOW Urine Clarity CLEAR Urine pH 6.0 Urine Specific Celeste 1.025 Urine Ketones 2+ H Urine Nitrite NEGATIVE Urine Bilirubin NEGATIVE Urine Urobilinogen 1+ H Urine Leukocyte Esterase NEGATIVE Urine Microscopic RBC 9 H Urine Microscopic WBC 15 H Urine Squamous Epithelial Cells FEW Urine Hemoglobin 1+ H Urine Random Creatinine 75.66 Urine Random Sodium 135 H Urine Glucose 3+ H Urine Total Protein 48.0 H Medications Medications Current Medications Aspirin (Halfprin) 81 mg DAILY PO Last administered on 08/04/17 09:47; Admin Dose 81 MG; Start 08/04/17 at 09:00 Atorvastatin Calcium (Lipitor) 10 mg QAM PO Last administered on 08/04/17 09: 47; Admin Dose 10 MG; Start 08/04/17 at 09:00 Carvedilol (Coreg) 6.25 mg DAILY PO ; Start 08/04/17 at 09:00 Fluoxetine HCl (Prozac) 20 mg DAILY PO Last administered on 08/04/17 11:38; Admin Dose 20 MG; Start 08/04/17 at 09:00 Hydrochlorothiazide (Hydrochlorothiazide) 25 mg DAILY PO ; Start 08/04/17 at 09 :00 Lisinopril (Zestril) 20 mg DAILY PO ; Start 08/04/17 at 09:00 Diagnostic Test (Pha) (Accu-Chek) 1 ea 02 XX ; Start 08/04/17 at 02:00 Miscellaneous Information 1 ea NOTE XX ; Start 08/03/17 at 22:15 Glucose (Glutose) 15 gm Q15M PRN PO DECREASED GLUCOSE; Start 08/03/17 at 22:15 Glucose (Glutose) 22.5 gm Q15M PRN PO DECREASED GLUCOSE; Start 08/03/17 at 22: 15 Dextrose (D50w Syringe) 25 ml Q15M PRN IV DECREASED GLUCOSE; Start 08/03/17 at 22:15 Dextrose (D50w Syringe) 50 ml Q15M PRN IV DECREASED GLUCOSE; Start 08/03/17 at 22:15 Glucagon (Glucagen) 1 mg Q15M PRN IM DECREASED GLUCOSE; Start 08/03/17 at 22: 15 Glucose (Glutose) 15 gm Q15M PRN BUCCAL DECREASED GLUCOSE; Start 08/03/17 at 22:15 Ondansetron HCl (Zofran Inj) 4 mg Q6H PRN IV NAUSEA AND/OR VOMITING; Start at 23:00 Acetaminophen (Tylenol Tab) 650 mg Q6H PRN PO PAIN LEVEL 1-3 OR FEVER; Start 08/03/17 at 23:00 Docusate Sodium (Colace) 100 mg Q12H PRN PO CONSTIPATION; Start 08/03/17 at 23 :00 Bisacodyl (Dulcolax) 5 mg DAILY PRN PO CONSTIPATION; Start 08/03/17 at 23:00 Ketorolac Tromethamine 30 mg 30 mg Q6H PRN IV PAIN; Start 08/03/17 at 23:00; Stop 08/06/17 at 22:59 Vancomycin HCl 250 ml @ 125 mls/hr Q12H IVPB Last administered on 08/04/17 07:51; Admin Dose 125 MLS/HR; Start 08/04/17 at 05:00 Sodium Chloride (NS) 1,000 ml @ 75 mls/hr [id number] IV Last administered on 09:48; Admin Dose 75 MLS/HR; Start 08/04/17 at 09:00 Miscellaneous Information (*Rx Drug Level Order Reminder*) VANCO TROUGH @ 0, 400 ON ... ONCE ONCE XX ; Start 08/05/17 at 04:00; Stop 08/05/17 at 04:01 Ciprofloxacin (Cipro) 500 mg BID@06,18 PO ; Start 08/04/17 at 18:00 JOSE VELEZ MD Aug 04, 2017 13:00
[2017-08-04] MEDS: ACETAMINOPHEN 325 MG TAB PO PRN ×2 (15:08→21:10)
--- NOTE | 2017-08-04 15:51 | RADRPT ---
PROCEDURE: Chest x-ray CLINICAL INDICATION: Wheezing TECHNIQUE: Chest 2 views COMPARISON: 07/26/2017 FINDINGS: There is stable mild cardiomegaly. The pulmonary vessels are normal in caliber. On the lateral view, there is an upper lobe infiltrate which is likely within the left upper lobe. The lower lung stephenson are clear. Costophrenic angles sharp. Bony thorax is unremarkable. IMPRESSION: 1. Stable mild cardiomegaly. No CHF. 2. Left upper lobe infiltrate / pneumonia. 3. Old granulomatous disease RPTAT: HH .Thien Rojas MD, Date Time Electronically viewed and signed by .Thien Rojas MD, on 08/04/2017 15:51 .W/
[2017-08-04] MEDS ORDERED: VANCOMYCIN IV PER PHARMACY XX SCH (16:30)
[2017-08-04] MEDS: CIPROFLOXACIN 500 MG TAB PO SCH (17:15)
[2017-08-04] MEDS ORDERED: MAGNESIUM SULFATE 1 GM/D5W 100 ML IVPB ONE (17:30)
[2017-08-04] MEDS ORDERED: CIPROFLOXACIN 500 MG TAB PO SCH (18:00)
[2017-08-04] MEDS: VANCOMYCIN 1 GM in NS 250 ML IVPB SCH (18:44)
[2017-08-04] MEDS: CIPROFLOXACIN HCL OTIC DROP 0.25 ML BOTH EARS SCH (20:36)
--- NOTE | 2017-08-04 21:53 | CONS ---
DATE OF ADMISSION: 08/03/2017 DATE OF CONSULTATION: 08/04/2017 TYPE OF CONSULTATION: Head and neck surgery. REFERRING PHYSICIAN: Medicine service REASON FOR CONSULTATION: Otitis. HISTORY OF PRESENT ILLNESS: The patient presents with a 3-day history of right-sided otalgia. She was seen in the emergency department yesterday and admitted with a diagnosis of otomastoiditis based on CT scan. At the time of the evaluation, the [facility] system was not functional and t he films were not available for review. However, a written report was examined, demonstrating masto id effusion without bone destruction, which negates diagnosis of mastoiditis. The patient does have a history of diabetes. The remainder of the history as per medicine note. PAST MEDICAL HISTORY: As noted. PAST SURGICAL HISTORY: On chart. MEDICATIONS: On chart. ALLERGIES: ON CHART. REVIEW OF SYSTEMS: A 14-point review of system performed. SOCIAL HISTORY: Nonapplicable. PHYSICAL EXAMINATION: GENERAL: Well-developed, well-nourished female in no acute distress. VITAL SIGNS: Stable. HEENT: Tympanic membranes, there is edema of the right external auditory canal. There is no mastoi d edema or tenderness. There is no cervical lymphadenopathy. Tympanic membrane is partially visual ized without any obvious middle ear inflammatory change or bulging of the tympanic membrane. There is no evidence of perforation or drainage. NEUROLOGIC: Cranial nerves II through XII are grossly intact. There is no cervical lymphadenopathy . Anterior rhinoscopy, nasal cavity is clear, oropharynx and cavity are clear. Thyroid is soft. G ood range of motion. LABORATORY DATA: The CT scan was as noted. ASSESSMENT: Otitis media/externa with mastoid effusion without evidence of bone disorder. RECOMMENDATIONS: Continue IV antibiotics for 48 to 72 hours, followed by an outpatient course of Le vaquin orally for 10 days. Suggest better blood sugar control. Start Ciprodex topical eardrops or Cipro HC 3 drops 3 times a day for 10 days. We suggest driving precautions. Please call me with an y additional questions or concerns. I will not see the patient until followup unless requested. As the patient's pain has resolved, there is no surgical intervention for any drainage procedures. Fu rthermore, the CT scan only demonstrates partial opacification of the middle ear without complete op acification, negating the need for any surgical intervention. Reconsult as needed. Dictated By: SAMANTHA ARELLANO/NTS Conf#: [id number] DID#: [id number] CC: JOSE VELEZ MD;*End*
[2017-08-05] VITALS (10 sets, daily range): BP systolic 93–149; BP diastolic 51–74; PULSE 71–113; RESP 17–20
[2017-08-05] MEDS: ACCU-CHEK XX SCH (02:00)
[2017-08-05 04:34] LABS: CALCIUM 8.7 mg/dl (8.4-10.2); CREATININE 0.77 mg/dl (0.44-1.00); MAGNESIUM 2.1 mg/dl (1.7-2.5); PHOSPHORUS 2.3 mg/dl (2.5-4.9); POTASSIUM 4.3 mmol/L (3.5-5.1)
[2017-08-05] MEDS: VANCOMYCIN 1 GM in NS 250 ML IVPB SCH ×3 (04:56→20:18)
[2017-08-05] MEDS: CIPROFLOXACIN 500 MG TAB PO SCH ×2 (05:15→17:39)
[2017-08-05 06:44] LABS: ABNORMAL IP MESSAGE 1; BASOPHILS % 0.4 % (0.0-2.0); EOSINOPHILS # 0.1 10^3/ul (0.0-0.5); EOSINOPHILS % 1.8 % (0.0-7.0); HEMATOCRIT 39.4 % (37.0-47.0); HEMOGLOBIN 12.8 g/dl (12.0-16.0); LYMPHOCYTES # 0.4 10^3/ul (0.8-2.9); LYMPHOCYTES % 6.3 % (15.0-51.0); MEAN CORPUSCULAR HEMOGLOBIN 28.5 pg (29.0-33.0); MEAN CORPUSCULAR HGB CONC 32.5 g/dl (32.0-37.0); MEAN CORPUSCULAR VOLUME 87.8 fl (82.0-101.0); MEAN PLATELET VOLUME 10.5 fl (7.4-10.4); MONOCYTE # 0.4 10^3/ul (0.3-0.9); MONOCYTES % 6.7 % (0.0-11.0); NEUTROPHIL # 4.8 10^3/ul (1.6-7.5); NEUTROPHILS % 83.9 % (39.0-77.0); PLATELET COUNT 158 10^3/UL (140-415); RED BLOOD COUNT 4.49 10^6/ul (4.20-5.40); RED CELL DISTRIBUTION WIDTH 14.7 % (11.5-14.5); WHITE BLOOD COUNT 5.7 10^3/ul (4.8-10.8)
[2017-08-05 06:45] LABS: POSITIVE DIFF @See below
[2017-08-05] MEDS: INSULIN ASPART [NOVOLOG] 3 ML PEN SC SCH ×4 (08:00→20:18)
[2017-08-05] MEDS ORDERED: NEUTRA-PHOS 250 MG PACKET PO ONE (08:30)
[2017-08-05] MEDS: ATORVASTATIN 10 MG TAB PO SCH (09:00)
[2017-08-05] MEDS: ASPIRIN (EC) 81 MG TAB PO SCH (09:00)
[2017-08-05] MEDS: FLUOXETINE 20 MG CAP PO SCH (09:00)
[2017-08-05] MEDS: CIPROFLOXACIN HCL OTIC DROP 0.25 ML BOTH EARS SCH ×2 (09:01→20:26)
--- NOTE | 2017-08-05 11:48 | PN ---
DATE: 08/05/2017 SUBJECTIVE: The patient is stable. No events overnight. No fevers, chills, nausea, vomiting. OBJECTIVE: VITAL SIGNS: Blood pressure is 139/74, pulse 107, temperature 99.0. HEENT: Head is normocephalic. NECK: Supple. HEART: Regular rate. LUNGS: Show diminished breath sounds at the base. ABDOMEN: Soft, nontender to palpation without rebound or guarding. EXTREMITIES: Negative for clubbing, cyanosis, no edema. DERMATOLOGIC: No rashes. MUSCULOSKELETAL: No joint effusions. NEUROLOGIC: No change in exam. MEDICATIONS: The patient's medications have been reviewed. LABORATORY DATA: Shows a BMP is within normal limits. Phosphorus is 2.3. White count is 5.7, hemo globin 10.8, hematocrit 39.4, platelet count is 158. Lactic acid levels normalized. The patient's urinalysis shows a FENa greater than 1%, a protein/creatinine ratio of 500 mg of creatinine. ASSESSMENT AND PLAN: 1. Lactic acidosis, etiology secondary to severe sepsis, improved. Continue current treatment plan . Continue antibiotic therapy. We will deescalate fluids to normal saline of 50 mL an hour. Monit or closely. 2. Proteinuria. Etiology may be secondary to underlying diabetic nephropathy. The patient's renal function is stable. Would recommend good glycemic control, disease factor modification and would c onsider starting angiotensin converting enzyme inhibitor once the patient is hemodynamically stable. 3. Hypomagnesemia. Continue to monitor and replete as needed. 4. Hypophosphatemia. Replete with potassium phosphate. 5. Severe sepsis secondary to otitis externa, otomastoiditis. Continue current antibiotic regimen. The patient was seen by ENT. 6. Diabetes. Continue current insulin regimen. 7. Dyslipidemia. Continue statin therapy. 8. Gastrointestinal and deep vein thrombosis prophylaxis. Dictated By: SUSI BOWSER DO NR/NTS Conf#: [id number] DID#: [id number] CC: JOSE VELEZ MD;*EndCC*
[2017-08-05] MEDS: SOD CHLORIDE 0.9% 1,000 ML IV SCH (12:26)
--- NOTE | 2017-08-05 14:49 | PN ---
Date/Time of Note Date/Time of Note DATE: 08/05/17 TIME: 14:46 Assessment/Plan VTE Prophylaxis VTE Prophylaxis Intervention: SCD's Lines/Catheters IV Catheter Type (from Nrsg): Peripheral IV Urinary Cath still in place: No Assessment/Plan Assessment/Plan 57 yo F with obesity, DM, admitted for 3 days of decreased hearing in R ear found to have R sided otitis externa with otomastoiditis PLAN cont abx. per ENT rec will cont IV vanc x 1 more day, then Wednesday likely dc on just po fluoroquinolone, cont cipro drops as well per ENT, no indication for surgical intervention pain control stop IVFs as Cr nl DM2 control with SSI Subjective 24 Hr Interval Summary Free Text/Dictation Ear feels better Exam/Review of Systems Vital Signs Vitals Vital Signs Date Time Temp Pulse Resp B/P Pulse Ox O2 Delivery O2 Flow Rate FiO2 08/05/17 12:12 73 08/05/17 11:35 97.7 17 105/56 99 08/05/17 08:00 Nasal Cannula 2.0 Intake and Output 08/04/17 08/04/17 08/05/17 14:59 22:59 06:59 Intake Total 1000 ml 1700 ml Balance 1000 ml 1700 ml Exam R ear with much less preauricular erythema, even without otoscope eac less inflamed no mrg lungs clear abd soft no rashes Cr now nl Results Result Diagram: 08/05/17 0357 08/05/17 0357 Results 24 hrs Laboratory Tests Test 08/04/17 17:14 08/04/17 20:34 08/05/17 03:57 08/05/17 08:25 Bedside Glucose 113 119 104 White Blood Count 5.7 # Red Blood Count 4.49 Hemoglobin 12.8 Hematocrit 39.4 Mean Corpuscular Volume 87.8 Mean Corpuscular Hemoglobin 28.5 L Mean Corpuscular Hemoglobin Concent 32.5 Red Cell Distribution Width 14.7 H Platelet Count 158 Mean Platelet Volume 10.5 H Neutrophils % 83.9 H Lymphocytes % 6.3 L Monocytes % 6.7 Eosinophils % 1.8 Basophils % 0.4 Nucleated Red Blood Cells % 0.0 Neutrophils # 4.8 Lymphocytes # 0.4 L Monocytes # 0.4 Eosinophils # 0.1 Basophils # 0.0 Nucleated Red Blood Cells # 0.0 Sodium Level 141 Potassium Level 4.3 Chloride Level 104 Carbon Dioxide Level 28 Anion Gap 13 # Blood Urea Nitrogen 11 Creatinine 0.77 Glucose Level 134 Calcium Level 8.7 Phosphorus Level 2.3 L Magnesium Level 2.1 Vancomycin Level Trough 7.3 L Test 08/05/17 12:06 Bedside Glucose 118 Medications Medications Current Medications Aspirin (Halfprin) 81 mg DAILY PO Last administered on 08/05/17 09:00; Admin Dose 81 MG; Start 08/04/17 at 09:00 Atorvastatin Calcium (Lipitor) 10 mg QAM PO Last administered on 08/05/17 09: 00; Admin Dose 10 MG; Start 08/04/17 at 09:00 Carvedilol (Coreg) 6.25 mg DAILY PO Last administered on 08/05/17 09:00; Admin Dose 6.25 MG; Start 08/04/17 at 09:00 Fluoxetine HCl (Prozac) 20 mg DAILY PO Last administered on 08/05/17 09:00; Admin Dose 20 MG; Start 08/04/17 at 09:00 Diagnostic Test (Pha) (Accu-Chek) 1 ea 02 XX ; Start 08/04/17 at 02:00 Miscellaneous Information 1 ea NOTE XX ; Start 08/03/17 at 22:15 Glucose (Glutose) 15 gm Q15M PRN PO DECREASED GLUCOSE; Start 08/03/17 at 22:15 Glucose (Glutose) 22.5 gm Q15M PRN PO DECREASED GLUCOSE; Start 08/03/17 at 22: 15 Dextrose (D50w Syringe) 25 ml Q15M PRN IV DECREASED GLUCOSE; Start 08/03/17 at 22:15 Dextrose (D50w Syringe) 50 ml Q15M PRN IV DECREASED GLUCOSE; Start 08/03/17 at 22:15 Glucagon (Glucagen) 1 mg Q15M PRN IM DECREASED GLUCOSE; Start 08/03/17 at 22: 15 Glucose (Glutose) 15 gm Q15M PRN BUCCAL DECREASED GLUCOSE; Start 08/03/17 at 22:15 Ondansetron HCl (Zofran Inj) 4 mg Q6H PRN IV NAUSEA AND/OR VOMITING; Start at 23:00 Acetaminophen (Tylenol Tab) 650 mg Q6H PRN PO PAIN LEVEL 1-3 OR FEVER Last administered on 08/04/17 21:10; Admin Dose 650 MG; Start 08/03/17 at 23:00 Docusate Sodium (Colace) 100 mg Q12H PRN PO CONSTIPATION; Start 08/03/17 at 23 :00 Bisacodyl (Dulcolax) 5 mg DAILY PRN PO CONSTIPATION; Start 08/03/17 at 23:00 Ketorolac Tromethamine 30 mg 30 mg Q6H PRN IV PAIN; Start 08/03/17 at 23:00; Stop 08/06/17 at 22:59 Sodium Chloride (NS) 1,000 ml @ 50 mls/hr Q20H IV Last administered on 12:26; Admin Dose 50 MLS/HR; Start 08/04/17 at 09:00 Ciprofloxacin (Cipro) 750 mg BID@06,18 PO Last administered on 08/05/17 05:15 ; Admin Dose 750 MG; Start 08/04/17 at 18:00 Ciprofloxacin HCl 2 drop 2 drop BID BOTH EARS Last administered on 08/05/17 09:01; Admin Dose 2 DROP; Start 08/04/17 at 21:00 Vancomycin HCl (Vancocin) 250 ml @ 125 mls/hr Q8H IVPB Last administered on 12:26; Admin Dose 125 MLS/HR; Start 08/05/17 at 13:00 Miscellaneous Information (*Rx Drug Level Order Reminder*) VANCOMYCIN TROUGH ON @ .. ONCE ONCE XX ; Start 08/06/17 at 12:00; Stop 08/06/17 at 12:01 JOSE VELEZ MD Aug 05, 2017 14:49
[2017-08-05 15:32] LABS: MICROALBUMIN 11.2 mg/dL
[2017-08-06] MEDS: ACCU-CHEK XX SCH (01:56)
[2017-08-06 02:00] VITALS: BP 99/56; RESP 20
[2017-08-06] MEDS: CIPROFLOXACIN 500 MG TAB PO SCH ×2 (05:31→17:56)
[2017-08-06] MEDS: VANCOMYCIN 1 GM in NS 250 ML IVPB SCH ×3 (05:32→21:16)
[2017-08-06 06:39] LABS: CALCIUM 9.1 mg/dl (8.4-10.2); CREATININE 0.64 mg/dl (0.44-1.00); POTASSIUM 3.8 mmol/L (3.5-5.1)
[2017-08-06 07:26] VITALS: BP 108/62; RESP 18
[2017-08-06] MEDS: INSULIN ASPART [NOVOLOG] 3 ML PEN SC SCH ×4 (07:50→20:45)
[2017-08-06] MEDS: ACETAMINOPHEN 325 MG TAB PO PRN (07:54)
[2017-08-06] MEDS: CIPROFLOXACIN HCL OTIC DROP 0.25 ML BOTH EARS SCH ×3 (09:00→21:15)
[2017-08-06] MEDS: FLUOXETINE 20 MG CAP PO SCH (09:17)
[2017-08-06] MEDS: ASPIRIN (EC) 81 MG TAB PO SCH (09:17)
[2017-08-06] MEDS: ATORVASTATIN 10 MG TAB PO SCH (09:18)
--- NOTE | 2017-08-06 11:07 | PN ---
DATE: 08/06/2017 SUBJECTIVE: The patient is stable. No events overnight. No fevers, chills, nausea, vomiting. OBJECTIVE: VITAL SIGNS: Blood pressure is 108/62, respiration 18, pulse 84, temperature 97.8. HEENT: Head is normocephalic. NECK: Supple. HEART: Regular rate. LUNGS: Show diminished breath sounds at base. ABDOMEN: Soft, nontender to palpation. No rebound or guarding. EXTREMITIES: Negative for clubbing, cyanosis, no edema. DERMATOLOGIC: No rashes. MUSCULOSKELETAL: No joint effusions. NEUROLOGIC: No change in exam. MEDICATIONS: The patient's medications have been reviewed. LABORATORY DATA: From 08/06 shows BMP within normal limits. ASSESSMENT AND PLAN: 1. Lactic acidosis secondary to sepsis, resolved. 2. Proteinuria likely due to underlying diabetic nephropathy. Renal function stable, would likely reintroduce CANDIS inhibitor once more hemodynamically stable, may be reintroduced in outpatient settin g. 3. Hypomagnesemia, improved. 4. Hyperphosphatemia, resolved. 5. Severe sepsis. Continue current antibiotic regimen. 6. Diabetes. Continue current insulin regimen. 7. Dyslipidemia. 8. Gastrointestinal and deep venous thrombosis prophylaxis. We will follow the patient as needed. Dictated By: SUSI SIMMONS/NIURKA Conf#: [id number] DID#: [id number]
[2017-08-06 13:53] VITALS: BP 105/64; RESP 17
--- NOTE | 2017-08-06 18:35 | PN ---
Date/Time of Note Date/Time of Note DATE: 08/06/17 TIME: 18:01 Assessment/Plan VTE Prophylaxis VTE Prophylaxis Intervention: SCD's Lines/Catheters IV Catheter Type (from Nrsg): Saline Lock Urinary Cath still in place: No Assessment/Plan Assessment/Plan 57 yo F with obesity, DM, admitted for 3 days of decreased hearing in R ear found to have R sided otitis externa with otomastoiditis PLAN cont abx. per ENT rec will cont IV vanc x 1 more day, then Wednesday likely dc on just po fluoroquinolone, cont cipro drops as well per ENT, no indication for surgical intervention pain control resume acei will f/u regarding possible breast pain prior to discharge DM2 control with SSI dc in AM Subjective 24 Hr Interval Summary Free Text/Dictation ear continues to feel better Exam/Review of Systems Vital Signs Vitals Vital Signs Date Time Temp Pulse Resp B/P Pulse Ox O2 Delivery O2 Flow Rate FiO2 08/06/17 13:53 98.9 84 17 105/64 92 08/05/17 08:00 Nasal Cannula 2.0 Intake and Output 08/05/17 08/05/17 08/06/17 15:00 23:00 07:00 Intake Total 250 ml 360 ml Balance 250 ml 360 ml Exam nad R ear erythema improved no mrg lungs clear abd soft no rashes Results Result Diagram: 08/05/17 0357 08/06/17 0507 Results 24 hrs Laboratory Tests Test 08/05/17 20:09 08/06/17 05:07 08/06/17 07:50 08/06/17 11:49 Bedside Glucose 125 103 Sodium Level 142 Potassium Level 3.8 Chloride Level 104 Carbon Dioxide Level 29 Anion Gap 13 Blood Urea Nitrogen 11 Creatinine 0.64 Glucose Level 119 Calcium Level 9.1 Vancomycin Level Trough 12.2 Test 08/06/17 11:56 08/06/17 17:23 Bedside Glucose 139 125 Medications Medications Current Medications Aspirin (Halfprin) 81 mg DAILY PO Last administered on 08/06/17 09:17; Admin Dose 81 MG; Start 08/04/17 at 09:00 Atorvastatin Calcium (Lipitor) 10 mg QAM PO Last administered on 08/06/17 09: 18; Admin Dose 10 MG; Start 08/04/17 at 09:00 Carvedilol (Coreg) 6.25 mg DAILY PO Last administered on 08/06/17 09:17; Admin Dose 6.25 MG; Start 08/04/17 at 09:00 Fluoxetine HCl (Prozac) 20 mg DAILY PO Last administered on 08/06/17 09:17; Admin Dose 20 MG; Start 08/04/17 at 09:00 Diagnostic Test (Pha) (Accu-Chek) 1 ea 02 XX ; Start 08/04/17 at 02:00 Miscellaneous Information 1 ea NOTE XX ; Start 08/03/17 at 22:15 Glucose (Glutose) 15 gm Q15M PRN PO DECREASED GLUCOSE; Start 08/03/17 at 22:15 Glucose (Glutose) 22.5 gm Q15M PRN PO DECREASED GLUCOSE; Start 08/03/17 at 22: 15 Dextrose (D50w Syringe) 25 ml Q15M PRN IV DECREASED GLUCOSE; Start 08/03/17 at 22:15 Dextrose (D50w Syringe) 50 ml Q15M PRN IV DECREASED GLUCOSE; Start 08/03/17 at 22:15 Glucagon (Glucagen) 1 mg Q15M PRN IM DECREASED GLUCOSE; Start 08/03/17 at 22: 15 Glucose (Glutose) 15 gm Q15M PRN BUCCAL DECREASED GLUCOSE; Start 08/03/17 at 22:15 Ondansetron HCl (Zofran Inj) 4 mg Q6H PRN IV NAUSEA AND/OR VOMITING; Start at 23:00 Acetaminophen (Tylenol Tab) 650 mg Q6H PRN PO PAIN LEVEL 1-3 OR FEVER Last administered on 08/06/17 07:54; Admin Dose 650 MG; Start 08/03/17 at 23:00 Docusate Sodium (Colace) 100 mg Q12H PRN PO CONSTIPATION; Start 08/03/17 at 23 :00 Bisacodyl (Dulcolax) 5 mg DAILY PRN PO CONSTIPATION; Start 08/03/17 at 23:00 Ketorolac Tromethamine (Toradol) 30 mg Q6H PRN IV PAIN; Start 08/03/17 at 23: 00; Stop 08/06/17 at 22:59 Ciprofloxacin 750 mg 750 mg BID@06,18 PO Last administered on 08/06/17 17:56; Admin Dose 750 MG; Start 08/04/17 at 18:00 Vancomycin HCl (Vancocin) 250 ml @ 125 mls/hr Q8H IVPB Last administered on 13:13; Admin Dose 125 MLS/HR; Start 08/05/17 at 13:00 Ciprofloxacin HCl (Ciprofloxacin HCl Otic) 3 drop TID BOTH EARS Last administered on 08/06/17 13:14; Admin Dose 3 DROP; Start 08/05/17 at 21:00 JOSE VELEZ MD Aug 06, 2017 18:11
[2017-08-06 20:00] VITALS: BP 113/64; RESP 20
[2017-08-07] MEDS: ACCU-CHEK XX SCH (02:00)
[2017-08-07] MEDS: CIPROFLOXACIN 500 MG TAB PO SCH (05:06)
[2017-08-07] MEDS: VANCOMYCIN 1 GM in NS 250 ML IVPB SCH (05:06)
[2017-08-07] MEDS: INSULIN ASPART [NOVOLOG] 3 ML PEN SC SCH (07:56)
[2017-08-07 08:00] VITALS: BP 122/70; RESP 17
[2017-08-07] MEDS: FLUOXETINE 20 MG CAP PO SCH (08:40)
[2017-08-07] MEDS: ATORVASTATIN 10 MG TAB PO SCH (08:40)
[2017-08-07] MEDS: ASPIRIN (EC) 81 MG TAB PO SCH (08:40)
[2017-08-07] MEDS ORDERED: LEVO750T8 PO (09:19)
[2017-08-07] MEDS ORDERED: CIPR1DRO3 BOTH EARS (09:19)
--- NOTE | 2017-08-07 09:26 | PDOCDIS ---
Discharge Instructions CONDITION Patient Condition: Good HOME CARE INSTRUCTIONS: Special Diet: carb controlled FOLLOW UP/APPOINTMENTS Follow-up Plan Please schedule a routine follow up with your regular doctor within 1-2 weeks Programe un seguimiento de rutina con gu mdico habitual dentro de 1-2 semanas Keep taking the antibiotics for your ear Siga tomando los antibiticos para gu odo Regarding your right breast, it's very important that you schedule an appointment with the breast surgeon within 1-2 weeks to see how the skin around your nipple is doing. You most likely have a skin/soft tissue infection, but sometimes women can have localized breast cancer around their nipple. It's very important that you are seen by the breast surgeon in his/her office to see if you need a biopsy. Con respecto a gu mama derecha, es muy importante que programe melissa lj con el cirujano de mama dentro de 1-2 semanas para marnie herb grower est la piel alrededor de gu pezn. Es muy probable que tenga melissa infeccin de la piel / tejidos blandos, josseline a veces las mujeres pueden tener cncer de mama localizado alrededor del pezn. Es muy importante que el cirujano de mama lo олег en gu consultorio para marnie si necesita melissa biopsia. Dr Simmons/Dr Cotton Office Address [id number] [place] [address] [address] [place] [address] Office JOSE VELEZ MD Aug 07, 2017 09:26
[2017-08-07] MEDS: CIPROFLOXACIN HCL OTIC DROP 0.25 ML BOTH EARS SCH (09:32)
--- NOTE | 2017-08-07 09:32 | DS ---
Date/Time of Note Date/Time of Note DATE: 08/07/17 TIME: 09:26 Discharge Summary Admission/Discharge Info Admit Date/Time Aug 03, 2017 at 20:58 Discharge Date/Time Discharge Diagnosis right otomastoiditis, R areolar skin abnormality Patient Condition: Good Consults ENT, nephrology, general surgery (telephone discussion only) Procedures 11. CT head/orbits IMPRESSION: Right temporal bone: External auditory canal wall is thickened and new from prior compatible with otitis externa. Interval progression of partial opacification of the right middle ear cavity and right mastoid since 02/23/2017. This is compatible with otomastoiditis. No aggressive erosive changes are identified to suggest coalescent mastoiditis. Left temporal bone: Unremarkable. . R breast US FINDINGS: No cyst is seen. No discrete solid mass is seen on ultrasound. No abscess is seen. No right axillary lymph node is seen. IMPRESSION: No sonographic abnormality seen in the right breast. Recommendation: If there is focal right breast pain, diagnostic mammography is recommended. Clinical evaluation and follow-up is recommended. BIRADS 1 - negative . CXR IMPRESSION: 1. New mild patchy bilateral lower lobe atelectasis. 2. Extensive old granulomatous disease 11.29 CXR IMPRESSION: 1. Stable mild cardiomegaly. No CHF. 2. Left upper lobe infiltrate / pneumonia. 3. Old granulomatous disease Hx of Present Illness cc: right ear pain, right breast pain This is a 57-year-old female who presents with gradual onset, constant, moderate to severe right ear pain and difficulty hearing for the last 3 days. She reports fever for the last 24 hours. She denies headache, vomiting. She also complains of 10 days of right-sided breast pain with a clear discharge. On examination of the patient at the bedside the patient was noted to having rigors and chills. Her temperature was normal at 98.6. Her blood pressure was within acceptable values. She was tachycardic. Warming measures were initiated. And stat ABG and lactic acid were ordered. Patient was subsequently transferred to telemetry. Hospital Course 57 yo F with obesity, DM, admitted for 3 days of decreased hearing in R ear found to have R sided otitis externa with otomastoiditis. Pt seen by ENT. Was treated with 3 days of IV antimicrobials, transitioned to PO at discharge. Ear pain and hearing both significantly improved by discharge. Of ntoe, pt reported 2 weeks of irritation of the skin on her R areola. On my examination on date of discharge, pt with flaking of the skin on her areola. Pt states this has been present for 2 weeks. I called the general surgeon contract sheltered workshop supervisor, (Milena Hercules) who stated that 2/2 logistical constraints he was uncertain what time he would be able to see the patient in the hospital today and requested that the patient be seen in his office for further evaluation/evaluation for biopsy. I spoke with the case manger to make arrangements to ensure there will be no barriers to making sure this patient is able to be seen in the breast clinic. The importance of breast clinic follow up to make sure her skin changes are not due to malignancy was discussed at length with the patient using the Citizen [place] language line prior to discharge, language interpreter [id number]. Pt voiced understanding and did not have any questions at the end of our encounter. I told her if there were any issues scheduling her breast appointment she should both call the hospital and talk to her regular physician. AceI and Hctz on hold as BP did not require it and pt with JIA on admission. Pt advised to discuss resuming acei with patient after discharge given her DM A copy of this discharge summary was provided to the patient to share with her regular doctor. Home Meds Active Scripts Levofloxacin* (Levofloxacin*) 750 Mg Tablet, 750 MG PO DAILY for 7 Days, #7 TAB Prov:JOSE VELEZ MD 08/07/17 Ciprofloxacin Hcl (CIPROFLOXACIN HCL) 1 Each Droperette, 3 DROP BOTH EARS TID for 7 Days, #1 BOTTLE Prov:JOSE VELEZ MD 08/07/17 Reported Medications Carvedilol* (Carvedilol*) 6.25 Mg Tablet, 6.25 MG PO DAILY, #60 TAB 08/03/17 Atorvastatin Calcium (Atorvastatin Calcium) 10 Mg Tablet, 10 MG PO QAM, #30 TAB 08/03/17 Aspirin Ec (Aspir 81) 81 Mg Tablet.dr, 81 MG PO DAILY, #30 TAB 10/30/15 Omeprazole* (Omeprazole*) 20 Mg Capsule.dr, 20 MG PO DAILY, CAP 06/13/14 Fluoxetine Hcl* (Fluoxetine Hcl*) 20 Mg Capsule, 20 MG PO DAILY, CAP 06/13/14 Metformin* (Glucophage*) 500 Mg Tab, 500 MG PO BID, TAB 06/13/14 Discontinued Reported Medications Lisinopril* (Lisinopril*) 20 Mg Tablet, 20 MG PO DAILY, TAB 06/13/14 Hydrochlorothiazide* (Hydrochlorothiazide*) 25 Mg Tab, 25 MG PO DAILY, TAB 06/13/14 Empagliflozin (Jardiance) 10 Mg Tablet, 10 MG PO DAILY, TAB 07/30/17 Cholecalciferol* (Vitamin D3*) 2,000 Unit Cap, 2000 UNIT PO DAILY, CAP 10/30/15 Discontinued Scripts Ibuprofen* (Motrin*) 600 Mg Tab, 600 MG PO Q6, #20 TAB Prov:ABDULLAHI AMBRIZ MD 11/18/15 Levofloxacin* (Levaquin*) 500 Mg Tablet, 500 MG PO DAILY@06 for 7 Days, TAB Prov:CALI COHEN 02/26/17 Follow-up Plan Please schedule a routine follow up with your regular doctor within 1-2 weeks Programe un seguimiento de rutina con gu mdico habitual dentro de 1-2 semanas Keep taking the antibiotics for your ear Siga tomando los antibiticos para gu odo Regarding your right breast, it's very important that you schedule an appointment with the breast surgeon within 1-2 weeks to see how the skin around your nipple is doing. You most likely have a skin/soft tissue infection, but sometimes women can have localized breast cancer around their nipple. It's very important that you are seen by the breast surgeon in his/her office to see if you need a biopsy. Con respecto a gu mama derecha, es muy importante que programe melissa lj con el cirujano de mama dentro de 1-2 semanas para marnie sheet ironworker est la piel alrededor de gu pezn. Es muy probable que tenga melissa infeccin de la piel / tejidos blandos, josseline a veces las mujeres pueden tener cncer de mama localizado alrededor del pezn. Es muy importante que el cirujano de mama lo олег en gu consultorio para marnie si necesita melissa biopsia. Dr Simmons/Dr Benyamini Office Address [address] [facility] [address] [place] [address] Office Primary Care Provider [facility]-->[facility] Time spent on discharge: > 30 minutes Pending Labs Laboratory Tests Test 08/06/17 11:49 08/06/17 11:56 08/06/17 17:23 08/06/17 20:40 Vancomycin Level Trough 12.2ug/ml (10.0-20.0) Bedside Glucose 139mg/dL (70-220) 125mg/dL (70-220) 132mg/dL (70-220) Test 08/07/17 07:44 Bedside Glucose 113mg/dL (70-220) Copies To: CC: MILENA HERCULES MD; SAMANTHA COLLADO MD ; [facility] JOSE VELEZ MD Aug 07, 2017 09:32
== END 2017-08-07 11:00 | disposition home or self-care (01) | DRG 872 ==
LOC: FTE 12:58 → MS1 20:58 → MS4 08-04 07:19 → PP2 08-05 16:58
PROVIDERS: ADMIT Internal Medicine; ATTEND Internal Medicine
DX: A41.9 Sepsis, unspecified organism (principal); E87.2 Acidosis; E83.42 Hypomagnesemia; E11.21 Type 2 diabetes mellitus with diabetic nephropathy; E83.39 Other disorders of phosphorus metabolism; H60.91 Unspecified otitis externa, right ear; I10 Essential (primary) hypertension; R65.20 Severe sepsis without septic shock; E78.5 Hyperlipidemia, unspecified; E66.9 Obesity, unspecified; Z68.35 Body mass index [BMI] 35.0-35.9, adult; M25.48 Effusion, other site; R06.03 Acute respiratory distress; R09.02 Hypoxemia; N64.4 Mastodynia; F39 Unspecified mood [affective] disorder; R77.8 Other specified abnormalities of plasma proteins
CPT/HCPCS: 36600; 70480; 71010; 71020; 76642; 80048; 80053; 80061; 80202; 81001; 81003; 82043; 82803; 82962; 83036; 83605; 83735; 84100; 84155; 84300; 84443; 84484; 85025; 85610; 85730; 87040; 93005; 94664; 96365; 96366; 96368; 96375; J0696; J0744; J1815; J1956; J2270; J2405; J3370; J3475; J7030

== ENCOUNTER 2017-11-12 07:00 | Day surgery (SDC) | END 2017-11-12 11:20 | disposition home or self-care (01) ==

== ENCOUNTER 2018-01-06 08:37 | Emergency (ER) | END 2018-01-06 13:10 | disposition home or self-care (01) ==

== ENCOUNTER 2018-10-29 20:05 | Observation (INO) | payer OTHER ==
[~2018-10-29] VITALS: Ht 157.5 cm; Wt 90.0 kg
[~2018-10-29 20:05] MED LIST changes: +ACET325T33 PO; +ALBU8.5H8 INH; +BENZ-6 PO; +CHOL100062 PO; -CHOL2000 PO; -HYDR25TA6 PO; -IBUP-1542 PO; -LISI20TA11 PO; +METF-849 PO; -METF500T4 PO; +PRED20TA PO
--- NOTE | 2018-10-29 20:25 | ERD ---
ER Documentation Chief Complaint Chief Complaint CP RADIATING DOWN L ARM X'S 1 DAY HPI This is a 58-year-old female with a past medical history of hypertension, diabetes, on Plavix but the patient does not know why, nephrolithiasis, multiple abdominal surgeries including cholecystectomy, total abdominal hysterectomy and umbilical hernia repair who is now presenting with waxing and waning moderate sharp aching pressure-like left-sided chest pain radiating into the left shoulder and into the left side of the neck, beginning last night with associated waxing and waning shortness of breath. She has not had any nausea or vomiting. She does not endorse diaphoresis. She is not lightheaded or dizzy. She is not believe her symptoms have been related to eating. She denies any extra exertion. She denies any trauma or injury. The patient does have right shoulder arthritis for which she reportedly had a previous surgery, but she has not had issues with the left shoulder until today. The patient does report increased pain on movement of the left shoulder. She does not endorse any other alleviating or exacerbating factors. The patient denies feeling sick recently. The patient denies fever or chills. The patient has had no headache or vision changes. The patient does not endorse neck or back pain. The patient denies abdominal pain. The patient denies changes to bowel movements or urination. The patient has had no focal deficits. The patient has had no weakness or numbness or tingling to the face or extremities. ROS All systems reviewed and are negative except as per history of present illness. Medications Home Meds Active Scripts Acetaminophen* (Tylenol*) 325 Mg Tablet, 2 TAB PO Q4 PRN for PAIN AND OR ELEVATED TEMP, #30 TAB Prov:DAVID RETANA PA-C 01/06/18 Benzonatate* (Tessalon Perle*) 100 Mg Capsule, 100 MG PO Q8H PRN for COUGH, #30 CAP Prov:DAVID RETANA PA-C 01/06/18 Prednisone* (Prednisone*) 20 Mg Tab, 60 MG PO DAILY for 4 Days, TAB Prov:DAVID RETANA PA-C 01/06/18 Albuterol Sulfate* (Proair HFA*) 8.5 Gm Hfa.aer.ad, 2 PUFF INH Q4H PRN for WHEEZING AND SOB, #1 INHALER Prov:DAVID RETANA Dottie KONG 01/06/18 Reported Medications Cholecalciferol* (Vitamin D3*) 1,000 Unit Tablet, 2000 UNIT PO DAILY, TAB 11/12/17 Empagliflozin (Jardiance) 10 Mg Tablet, 10 MG PO DAILY, TAB 11/12/17 Aspirin Ec (Aspir 81) 81 Mg Tablet.dr, 81 MG PO DAILY, #30 TAB 10/30/15 Omeprazole* (Omeprazole*) 20 Mg Capsule.dr, 20 MG PO DAILY, CAP 06/13/14 Fluoxetine Hcl* (Fluoxetine Hcl*) 20 Mg Capsule, 20 MG PO DAILY, CAP 06/13/14 Metformin* (Glucophage*) 500 Mg Tab, 500 MG PO BID, TAB 06/13/14 Allergies Allergies: Coded Allergies: Penicillins (Verified Allergy, Intermediate, RASHES, 11/12/17) PMhx/Soc History of Surgery: Yes (CATARACT OU, CHOLECYSTECTOMY, EFREN/BSO, KIDNEY STONES, UMBILICAL HERNIA) Anesthesia Reaction: No Hx Neurological Disorder: No Hx Respiratory Disorders: No Hx Cardiac Disorders: Yes (Hypertension, diabetes) Hx Psychiatric Problems: Yes (DEPRESSION) Hx Miscellaneous Medical Probl: Yes (Nephrolithiasis) Hx Alcohol Use: Yes (OCCASIONAL) Hx Substance Use: No Hx Tobacco Use: No FmHx Family History: diabetes Physical Exam Vitals Vital Signs Date Temp Pulse Resp B/P (MAP) Pulse Ox O2 O2 Flow FiO2 Time Delivery Rate 10/29/18 98.9 96 18 178/84 98 20:07 (115) Physical Exam Const: No apparent distress, well-developed, well-nourished Head: Normocephalic, Atraumatic Eyes: Normal Conjunctiva. Extraocular movements intact. Pupils equal, round and reactive to light ENT: Normal External Ears, Nose and Mouth. Neck: Full range of motion. No meningismus. Resp: Clear to auscultation bilaterally, No wheezes, rales or rhonchi Cardio: Regular rate and rhythm. No murmurs, rubs or gallops Abd: Soft, non tender, non distended. Normal bowel sounds Skin: No petechiae or rashes Back: No midline tenderness. No CVA tenderness Ext: No cyanosis, or edema Neur: Awake and alert, oriented 4. Cranial nerves intact. No facial droop. Normal strength, sensation and coordination. Psych: Normal Mood and Affect Result Diagram: 10/29/18202910/29/182029 Results 24 hrs Laboratory Tests Test 10/29/18 20:30 White Blood Count 8.4 10^3/ul Red Blood Count 5.33 10^6/ul Hemoglobin 14.5 g/dl Hematocrit 46.3 % Mean Corpuscular Volume 86.9 fl Mean Corpuscular Hemoglobin 27.2 pg Mean Corpuscular Hemoglobin Concent 31.3 g/dl Red Cell Distribution Width 14.3 % Platelet Count 263 10^3/UL Mean Platelet Volume 9.8 fl Immature Granulocytes % 0.700 % Neutrophils % 50.3 % Lymphocytes % 35.8 % Monocytes % 8.8 % Eosinophils % 3.9 % Basophils % 0.5 % Nucleated Red Blood Cells % 0.0 /100WBC Immature Granulocytes # 0.060 10^3/ul Neutrophils # 4.2 10^3/ul Lymphocytes # 3.0 10^3/ul Monocytes # 0.7 10^3/ul Eosinophils # 0.3 10^3/ul Basophils # 0.0 10^3/ul Nucleated Red Blood Cells # 0.0 10^3/ul Sodium Level 142 mmol/L Potassium Level 3.4 mmol/L Chloride Level 99 mmol/L Carbon Dioxide Level 31 mmol/L Anion Gap 12 Blood Urea Nitrogen 15 mg/dl Creatinine 0.69 mg/dl Est Glomerular Filtrat Rate mL/min > 60 mL/min Glucose Level 183 mg/dl Calcium Level 10.1 mg/dl Troponin I < 0.012 ng/ml Current Medications Medications Dose Sig/Bob Start Time Status Last (Trade) Ordered Route PRN Stop Time Admin Dose Reason Admin Aspirin 324 mg ONCE ONCE 10/29/18 DC 10/29/18 (Aspirin) PO 22:30 22:31 10/29/18 22:31 Ondansetron 4 mg ER BRIDGE 10/29/18 HCl (Zofran PRN IV 22:30 Inj) NAUSEA/VOMITI 10/30/18 22:29 NG 650 mg ER BRIDGE 10/29/18 Acetaminophen PRN PO 22:30 (Tylenol .MILD PAIN 10/30/18 22:29 Tab) 1-3 OR TEMP IV Flush 3 ml PER 10/29/18 (NS 3 ml) PROTOCOL IV 23:00 Ondansetron 4 mg Q6H PRN 10/29/18 HCl (Zofran PO 23:00 Tab) NAUSEA/VOMITI NG 1 tab Q5M PRN 10/29/18 Nitroglycerin SL .CHEST 23:00 PAIN (Nitroglyceri n (Sl Tab) 0.4 Mg) 650 mg Q6H PRN 10/29/18 Acetaminophen PO .PAIN 1-3 23:00 (Tylenol OR TEMP Tab) Morphine 2 mg Q4H PRN 10/29/18 Sulfate IV .PAIN 23:00 (morphine) 7-10 Docusate 100 mg Q12H PRN 10/29/18 Sodium PO 23:00 (Colace) .CONSTIPATION Bisacodyl 5 mg DAILY PRN 10/29/18 (Dulcolax) PO 23:00 .CONSTIPATION Procedures/MDM MDM The patient's presentation warrants further investigation. Previous medical records, if available, were reviewed. LABS The patient's laboratory testing was obtained and reviewed. No emergent treatment was required unless described below. CBC: No E/o of systemic infection or severe anemia or thrombocytopenia BMP: No E/o severe acidosis or alkalosis or renal failure or diabetic ketoacidosis. Mild hypokalemia, nonemergent. Troponin: No E/o acute ischemia EKG EKG performed at 2010 read by me: Rate/Rhythm: Regular rate and rhythm at a rate of 92 bpm Intervals: Normal [place]: Left axis deviation Impression: Nonspecific repolarization changes without evidence of acute ischemia or arrhythmia EKG performed at 2025 read by me: Rate/Rhythm: Regular rate and rhythm at a rate of 79 bpm Intervals: Normal [place]: Left axis deviation Impression: No evidence of acute ischemia or arrhythmia IMAGING Imaging and Radiology interpretation reviewed. CXR FINDINGS: Mediastinum: Unremarkable. Heart size: Normal. Pulmonary vasculature: No visible engorgement. Lungs: Scattered bilateral small calcified granulomas . Costophrenic sulci: Clear. Bony structures: Grossly unremarkable for age. IMPRESSION: Stable chest showing old granulomatous disease with no evidence of congestive failure or pneumonia. Electronically viewed and signed by Physician Narinder on 10/29/2018 22:00 TREATMENT/DISPOSITION The patient presents for chest pain. The history is certainly concerning. On review of the patient's medical record, the patient is also on Plavix. The p atient does not know why. I am concerned about cardiovascular disease as well. The patient's heart score is greater than 3 which stratifies the patient into the moderate risk group for any major adverse cardiac event in the next 30 days. I do feel that the patient requires further observation and management in the hospital. The patient was given aspirin in the ER. A musculoskeletal etiology is also certainly a possibility of her symptoms, but this is a diagnosis of exclusion and I cannot definitively rule out a cardiac pathology from the ER. The patient's chest xray does not reveal pneumonia or pneumothorax or pleural effusions or pulmonary edema. She does not have a widened mediastinum and does not have signs or symptoms concerning for thoracic aortic aneurysm or dissection. The patient does not have pneumomediastinum or signs concerning for esophageal tear or rupture. The patient has no clinical or radiographic signs of pericardial effusion or tamponade. The patient does not h ave pneumoperitoneum and I have decreased suspicion of viscus perforation as possible referred pain. The patient does not have a history of heart failure and I have low suspicion for this. The patient does not have a diagnosis of COPD and is not wheezing today. The patient is not tachypneic or hypoxic. The patient is breathing comfortably and without pleuritic pain. The patient is not on hormonal therapy. The patient has no history of clotting or bleeding disorders. The patient has no calf tenderness. The patient has had no hemoptysis. I have decreased suspicion for PE. At this time, I feel that the patient requires admission for further evaluation and management. The patient will be admitted to panel in accordance with the patient's insurance. The patient was accepted by Dr. Bonilla at 10:15PM on October 29, 2018. Disclaimer: Inadvertent spelling and grammatical errors are likely due to EHR/dictation software use and do not reflect on the overall quality of patient care. Note that the electronic time recorded on this note does not necessarily reflect the actual time of the patient encounter. Departure Diagnosis: Primary Impression: Chest pain Chest pain type: unspecified Qualified Codes: R07.9 - Chest pain, unspecified Additional Impressions: Shortness of breath Hypokalemia Condition: LAURI Galicia MD Oct 29, 2018 20:25
--- NOTE | 2018-10-29 22:04 | HP ---
Date/Time of Note Date/Time of Note DATE: 10/29/18 TIME: 22:04 Assessment/Plan VTE Prophylaxis SCD applied (from Nsg): Yes Pharmacological prophylaxis: NA/contraindicated Pharm contraindication: low risk/ambulating Lines/Catheters IV Catheter Type (from Nrsg): Saline Lock Assessment/Plan Hospital Course This is a 58-year-old female being admitted to the telemetry floor for observation for: #1 Chest pain: ACS vs. GI etiology: Patient does have tenderness palpation over the anterior chest wall as well as the epigastric region. However given the fact that she had symptoms radiating to her left arm we will also rule her out for ACS given her risk factors. Will trend cardiac enzymes x3, the first that was negative. Will check an echocardiogram. PRN nitro/morphine for pain. Will check hemoglobin A1c, lipid panel, TSH. Patient's aspirin was discontinued as an outpatient and she was started on Plavix for some unknown reason. We will continue Plavix at the current time. No history of stents or stroke. #2 epigastric pain: Possibly secondary to ACS versus GI etiology such as dy spepsia/ulcer . Will check an amylase and lipase as well. Will decrease a dose of patient's Protonix to 40 mg p.o. daily. PRN Mylanta to see if it provides any relief. Her abdomen does not appear to be acute, if symptoms worsen consider CT of the abdomen and pelvis. #3 hypertension: Continue hydrochlorthiazide #4 diabetes mellitus: Diabetic diet, resume home insulin, initiate insulin sliding scale, will hold metformin, check hemoglobin A1c #5 Hyperlipidemia: Continue statin #6 mood disorder: Continue fluoxetine #7 GERD: Continue PPI #8 DVT GI prophylaxis: SCDs, PPI Further treatment strategy will be implemented as per the clinical course. Result Diagram: 10/29/18202910/29/182029 Results 24hrs Laboratory Tests Test 10/29/18 20:30 White Blood Count 8.4 Red Blood Count 5.33 Hemoglobin 14.5 Hematocrit 46.3 Mean Corpuscular Volume 86.9 Mean Corpuscular Hemoglobin 27.2 L Mean Corpuscular Hemoglobin Concent 31.3 L Red Cell Distribution Width 14.3 Platelet Count 263 Mean Platelet Volume 9.8 Immature Granulocytes % 0.700 H Neutrophils % 50.3 Lymphocytes % 35.8 Monocytes % 8.8 Eosinophils % 3.9 Basophils % 0.5 Nucleated Red Blood Cells % 0.0 Immature Granulocytes # 0.060 H Neutrophils # 4.2 Lymphocytes # 3.0 H Monocytes # 0.7 Eosinophils # 0.3 Basophils # 0.0 Nucleated Red Blood Cells # 0.0 Sodium Level 142 Potassium Level 3.4 L Chloride Level 99 Carbon Dioxide Level 31 Anion Gap 12 Blood Urea Nitrogen 15 Creatinine 0.69 Est Glomerular Filtrat Rate mL/min > 60 Glucose Level 183 Calcium Level 10.1 Troponin I < 0.012 HPI/ROS Admit Date/Time Admit Date/Time Hx of Present Illness cc: left sided chest pain radiating to arm This is a 58-year-old female with a past medical history of hypertension, diabetes, on Plavix but the patient does not know why, nephrolithiasis, multiple abdominal surgeries including cholecystectomy, total abdominal hysterectomy and umbilical hernia repair who is now presenting with waxing and waning moderate sharp aching pressure-like left-sided chest pain radiating into the left shoulder and into the left side of the neck, beginning last night with associated waxing and waning shortness of breath. Denies any nausea vomiting diaphoresis or lightheadedness or dizziness. She does not associated her symptoms to eating. She denies any trauma or injury. The patient does report increased pain on movement of the left shoulder. She does not endorse any other alleviating or exacerbating factors. Allergies: Penicillin Medications: See BC VILLANUEVA Const: As per HPI Eyes : No pain discharge or redness or change in visual acuity ENT: No pain, sore throat, congestion, congestion, dysphagia or discharge Respiratory: No shortness of breath, cough, sputum, wheezing, or pleuritic pain Cardiovascular: As per HPI GI : no change in appetite, abdominal pain, nausea, vomiting, diarrhea, constipation, or change in the color his stool Genitourinary: No dysuria, hematuria, flank pain , discharge or CVA tenderness Musculoskeletal: No joint pain, back pain, neck pain, restricted range of motion in neck or joints Skin: No rash, bruising or hives Neuro: No headache, dizziness, syncope, seizure, focal weakness Endocrine: No polyuria, polydipsia, temperature intolerance Psych: No hallucination, depression, anxiety or suicidal ideation Additional Comments PROCEDURE: One view chest radiograph. CLINICAL INDICATION: Chest pain. TECHNIQUE: An AP view of the chest was obtained. COMPARISON: 10/30/2015 FINDINGS: Mediastinum: Unremarkable. Heart size: Normal. Pulmonary vasculature: No visible engorgement. Lungs: Scattered bilateral small calcified granulomas . Costophrenic sulci: Clear. Bony structures: Grossly unremarkable for age. IMPRESSION: 1. Stable chest showing old granulomatous disease with no evidence of congestive failure or pneumonia. RPTAT:AAJJ Physician Narinder Date Time Electronically viewed and signed by Don Powers Physician on 10/29/2018 22:00 GW/ CC: LAURI VILLAGOMEZ MD [id number] EKG Rate/Rhythm: Regular rate and rhythm at a rate of 79 bpm Intervals: Normal [place]: Left axis deviation Impression: No evidence of acute ischemia or arrhythmia PMH/Family/Social Past Medical History Hypertension, diabetes Medications Current Medications Aspirin (Aspirin) 324 mg ONCE ONCE PO ; Start 10/29/18 at 22:30; Stop 10/29/18 at 22:31 Coded Allergies: Penicillins (Verified Allergy, Intermediate, RASHES, 11/12/17) Past Surgical History Kidney stone removal, cholecystectomy, right shoulder surgery, hysterectomy, eye surgeries bilaterally? Family History Significant Family History: no pertinent family hx Social History Alcohol Use: occasionally Smoking Status: Never smoker Drug Use: none Exam/Review of Systems Vital Signs Vitals Vital Signs Date Temp Pulse Resp B/P (MAP) Pulse Ox O2 O2 Flow FiO2 Time Delivery Rate 10/29/18 98.9 96 18 178/84 98 20:07 (115) Exam Exam General: Patient is a pleasant female currently lying in bed in moderate distress from pain HEENT: Atraumatic, normocephalic. The pupils are equal, round and reactive. E xtraocular motor are intact Neck: Supple with full range of motion. No rigidity or meningismus Chest: Tender to palpation across the anterior left and right chest wall Lungs: Clear to auscultation bilaterally no crackles rales or wheezing Heart: Normal S1-S2, Regular rhythm and rate. No murmur, S3, or S4 Abdomen: Soft, tenderness palpation over the epigastric region, normal bowel sounds, no CVA tenderness elevation bilaterally Extremities: Normal to inspection, no edema no cyanosis Neurologic: Normal mental status, speech normal, cranial nerves II through XII are intact, motor and sensory are intact, no focal weakness Additional Comments EKG Rate/Rhythm: Regular rate and rhythm at a rate of 79 bpm Intervals: Normal [place]: Left axis deviation Impression: No evidence of acute ischemia or arrhythmia PROCEDURE: One view chest radiograph. CLINICAL INDICATION: Chest pain. TECHNIQUE: An AP view of the chest was obtained. COMPARISON: 10/30/2015 FINDINGS: Mediastinum: Unremarkable. Heart size: Normal. Pulmonary vasculature: No visible engorgement. Lungs: Scattered bilateral small calcified granulomas . Costophrenic sulci: Clear. Bony structures: Grossly unremarkable for age. IMPRESSION: 1. Stable chest showing old granulomatous disease with no evidence of congestive failure or pneumonia. RPTAT:AAJJ Physician Narinder Date Time Electronically viewed and signed by Don Powers Physician on 10/29/2018 22:00 GW/ CC: LAURI VILLAGOMEZ MD [id number] PATRICIA ROJAS Oct 29, 2018 22:04
[2018-10-29] MEDS ORDERED: ONDANSETRON 4 MG INJ IV PRN (22:30)
[2018-10-29] MEDS ORDERED: ASPIRIN 81 MG TAB PO ONE (22:30)
[2018-10-29] MEDS ORDERED: NITROGLYCERIN (SL) 0.4 MG TAB SL PRN (23:00)
[2018-10-29] MEDS ORDERED: ACETAMINOPHEN 325 MG TAB PO PRN (23:00)
[2018-10-29] MEDS ORDERED: morphine 2 MG INJ IV PRN (23:00)
[2018-10-29] MEDS ORDERED: NACL 0.9% 3 ML SYG IV SCH (23:00)
[2018-10-29] MEDS ORDERED: ONDANSETRON 4 MG TAB PO PRN (23:00)
[2018-10-29] MEDS ORDERED: BISACODYL (EC) 5 MG TAB PO PRN (23:00)
[2018-10-29] MEDS ORDERED: DOCUSATE SODIUM 100 MG CAP PO PRN (23:00)
[2018-10-29 23:10] VITALS: BP 143/77; PULSE 79; RESP 18
[2018-10-29] MEDS ORDERED: HYDR12.58 PO (23:14)
[2018-10-29] MEDS ORDERED: ATOR40TA68 PO (23:14)
[2018-10-29] MEDS ORDERED: CLOP75TA27 PO (23:14)
[2018-10-29 23:18] VITALS: PULSE 81
[2018-10-29] MEDS ORDERED: POTASSIUM CHLORIDE (SR) 20 MEQ TAB PO STA (23:18)
[2018-10-29] MEDS ORDERED: ENALAPRILAT 2.5 MG INJ IV PRN (23:30)
[2018-10-29] MEDS ORDERED: NITROGLYCERIN 0.2 MG/HR PATCH TRANSDERM ONE (23:30)
[2018-10-29] MEDS ORDERED: AL HYDROX/MG HYDROX/SIMETH 30 ML CUP PO PRN (23:30)
[2018-10-29 23:36] VITALS: Ht 157.5 cm; Wt 90.0 kg
[2018-10-30] VITALS (7 sets, daily range): BP systolic 115–126; BP diastolic 66–69; PULSE 73–94; RESP 16–18
[2018-10-30] MEDS: ACETAMINOPHEN 325 MG TAB PO PRN ×2 (05:26→08:59)
[2018-10-30] MEDS ORDERED: PANTOPRAZOLE (EC) 40 MG TAB PO SCH (06:00)
[2018-10-30] MEDS ORDERED: FLUOXETINE 20 MG CAP PO SCH (09:00)
[2018-10-30] MEDS ORDERED: CLOPIDOGREL 75 MG TAB PO SCH (09:00)
[2018-10-30] MEDS ORDERED: HYDROCHLOROTHIAZIDE 12.5 MG CAP PO SCH (09:00)
[2018-10-30] MEDS ORDERED: NON-FORMULARY/PATIENT OWN MED (Omeprazole* 20 MG) PO SCH (09:00)
--- NOTE | 2018-10-30 11:02 | PDOCDIS ---
Discharge Instructions CONDITION [id number] Patient Condition: [id number] Stable HOME CARE INSTRUCTIONS: [id number] Your diet recommendation is: [id number] carbohydrate-controlled diet FOLLOW UP/APPOINTMENTS Follow-up Plan Follow-up with primary care physician in 1 week JASS GEE NP Oct 30, 2018 11:02
--- NOTE | 2018-10-30 11:07 | DS ---
Date/Time of Note Date/Time of Note DATE: 10/30/18 TIME: 11:04 Discharge Summary Admission/Discharge Info Admit Date/Time Oct 29, 2018 at 22:24 Discharge Date/Time Discharge Diagnosis Chest pain, likely muscular skeletal. Resolved. ACS ruled out. GERD Type 2 diabetes Vitamin D deficiency Hyperlipidemia Mood disorders Patient Condition: Stable Procedures 10/29/2018: Chest x-ray. IMPRESSION: 1. Stable chest showing old granulomatous disease with no evidence of congestive failure or pneumonia. Hospital Course 58-yo with a medical history of diabetes, GERD, vitamin D deficiency, mood disorders, hyperlipidemia, here with chest pain.On exam, patient has quite localized and reproducible pain with palpation of chest wall, so most likley this is a musculoskeletal pain in origin.Troponins and EKG are negative for acute UT and the duration of her syptoms are not consistent with angina or ACS. No need for provocative Stress testing given not consistent with angina. No respiratory symptoms and low wells score to suggest PE .Patient symptoms improved with pain medications and PPI.For the above, we decided to discharge patient with PCP follow-up. On day of discharge, patient is eager to be discharged home, her labs and vital signs stable. Approximately 60 m spent on coordinating the discharge on this patient. Patient is seen in collaboration with Dr. De Jesus. Home Meds Active Scripts Hydrochlorothiazide* (Hydrochlorothiazide*) 12.5 Mg Tablet, 12.5 MG PO DAILY, #30 TAB Prov:PATRICIA ROJAS 10/29/18 Atorvastatin* (Atorvastatin*) 40 Mg Tablet, 40 MG PO QHS, #30 TAB Prov:PATRICIA ROJAS 10/29/18 Clopidogrel Bisulfate (Clopidogrel) 75 Mg Tablet, 75 MG PO DAILY, #30 TAB Prov:PATRICIA ROJAS 10/29/18 Acetaminophen* (Tylenol*) 325 Mg Tablet, 2 TAB PO Q4 PRN for PAIN AND OR ELEVATED TEMP, #30 TAB Prov:DAVID RETANA PA-C 01/06/18 Albuterol Sulfate* (Proair HFA*) 8.5 Gm Hfa.aer.ad, 2 PUFF INH Q4H PRN for WHEEZING AND SOB, #1 INHALER Prov:DAVID RETANA PA-C 01/06/18 Reported Medications Cholecalciferol* (Vitamin D3*) 1,000 Unit Tablet, 2000 UNIT PO DAILY, TAB 11/12/17 Empagliflozin (Jardiance) 10 Mg Tablet, 10 MG PO DAILY, TAB 11/12/17 Omeprazole* (Omeprazole*) 20 Mg Capsule.dr, 20 MG PO DAILY, CAP 06/13/14 Fluoxetine Hcl* (Fluoxetine Hcl*) 20 Mg Capsule, 20 MG PO DAILY, CAP 06/13/14 Metformin* (Glucophage*) 500 Mg Tab, 500 MG PO BID, TAB 06/13/14 Discontinued Reported Medications Aspirin Ec (Aspir 81) 81 Mg Tablet.dr, 81 MG PO DAILY, #30 TAB 10/30/15 Discontinued Scripts Benzonatate* (Tessalon Perle*) 100 Mg Capsule, 100 MG PO Q8H PRN for COUGH, #30 CAP Prov:DAVID RETANA PA-C 01/06/18 Prednisone* (Prednisone*) 20 Mg Tab, 60 MG PO DAILY for 4 Days, TAB Prov:DAVID RETANA PA-C 01/06/18 Follow-up Plan Follow-up with primary care physician in [address] [facility] Pending Labs Laboratory Tests Test 10/29/18 20:30 10/30/18 02:19 10/30/18 07:38 White Blood Count 8.4 8.4 10^3/ul (4.8-10.8) 10^3/ul (4.8-10.8) Red Blood Count 5.33 5.19 10^6/ul (4.20-5.40) 10^6/ul (4.20-5.40 ) Hemoglobin 14.5 14.3 g/dl (12.0-16.0) g/dl (12.0-16.0) Hematocrit 46.3 % (37.0-47.0) 45.3 % (37.0-47.0) Mean Corpuscular 86.9 87.3 Volume fl (82.0-101.0) fl (82.0-101.0) Mean Corpuscular 27.2 pg (29.0-33.0) 27.6 Hemoglobin pg (29.0-33.0) Mean Corpuscular 31.3 31.6 Hemoglobin Concent g/dl (32.0-37.0) g/dl (32.0-37.0) Red Cell 14.3 % (11.5-14.5) 14.4 % (11.5-14.5) Distribution Width Platelet Count 263 240 10^3/UL (140-415) 10^3/UL (140-415) Mean Platelet 9.8 fl (7.4-10.4) 10.1 fl (7.4-10.4) Volume Immature 0.700 0.600 Granulocytes % % (0.001-0.429) % (0.001-0.429) Neutrophils % 50.3 % (39.0-77.0) 48.9 % (39.0-77.0) Lymphocytes % 35.8 % (15.0-51.0) 36.6 % (15.0-51.0) Monocytes % 8.8 % (0.0-11.0) 9.2 % (0.0-11.0) Eosinophils % 3.9 % (0.0-7.0) 3.9 % (0.0-7.0) Basophils % 0.5 % (0.0-2.0) 0.8 % (0.0-2.0) Nucleated Red Blood 0.0 0.0 Cells % /100WBC (0.0-0.0) /100WBC (0.0-0.0) Immature 0.060 0.050 Granulocytes # 10^3/ul (0.0-0.031) 10^3/ul (0.0-0.031 ) Neutrophils # 4.2 4.1 10^3/ul (1.6-7.5) 10^3/ul (1.6-7.5) Lymphocytes # 3.0 3.1 10^3/ul (0.8-2.9) 10^3/ul (0.8-2.9) Monocytes # 0.7 0.8 10^3/ul (0.3-0.9) 10^3/ul (0.3-0.9) Eosinophils # 0.3 0.3 10^3/ul (0.0-0.5) 10^3/ul (0.0-0.5) Basophils # 0.0 0.1 10^3/ul (0.0-0.1) 10^3/ul (0.0-0.1) Nucleated Red Blood 0.0 0.0 Cells # 10^3/ul (0.0-0.0) 10^3/ul (0.0-0.0) Sodium Level 142 143 mmol/L (135-144) mmol/L (135-144) Potassium Level 3.4 3.7 mmol/L (3.5-5.1) mmol/L (3.5-5.1) Chloride Level 99 mmol/L (97-110) 101 mmol/L (97-110) Carbon Dioxide 31 mmol/L (21-31) 33 mmol/L (21-31) Level Anion Gap 12 (5-13) 9 (5-13) Blood Urea 15 mg/dl (7-20) 16 mg/dl (7-20) Nitrogen Creatinine 0.69 0.65 mg/dl (0.44-1.00) mg/dl (0.44-1.00) Est Glomerular > 60 mL/min (>60) > 60 mL/min (>60) Filtrat Rate mL/min Glucose Level 183 mg/dl (70-220) 150 mg/dl (70-220) Calcium Level 10.1 10.1 mg/dl (8.4-10.2) mg/dl (8.4-10.2) Troponin I < 0.012 < 0.012 < 0.012 ng/ml (0.000-0.120) ng/ml (0.000-0.120 ng/ml (0.000-0.120 ) ) Hemoglobin A1c 7.6 % (0-5.9) Magnesium Level 1.9 mg/dl (1.7-2.5) Total Bilirubin 0.2 mg/dl (0.2-1.3) Direct Bilirubin 0.00 mg/dl (0.00-0.20) Indirect Bilirubin 0.2 mg/dl (0-1.1) Aspartate Amino 35 IU/L (15-46) Transf (AST/SGOT) Alanine 49 IU/L (13-69) Aminotransferase (A LT/SGPT) Alkaline 67 IU/L (42-121) Phosphatase Creatine Kinase 27 IU/L (23-200) 24 IU/L (23-200) Creatine Kinase 0.8 0.9 Index Creatinine Kinase < 0.22 < 0.22 MB (Mass) ng/ml (0.0-2.4) ng/ml (0.0-2.4) Total Protein 7.3 g/dl (6.1-8.1) Albumin 4.1 g/dl (3.3-4.9) Globulin 3.20 g/dl (1.3-3.2) Albumin/Globulin 1.28 Ratio Triglycerides 158 mg/dl (0-149) Level Cholesterol Level 130 mg/dl (100-200) LDL Cholesterol, 62 mg/dl Calculated HDL Cholesterol 36 mg/dl (37-92) Cholesterol/HDL 3.6 RATIO Ratio Thyroid Stimulating 2.510 Hormone (TSH) MIU/L (0.465-4.680 ) Amylase Level 57 U/L (11-123) Lipase 87 U/L (23-300) Ethyl Alcohol < 10.0 mg/dl (0-0) Level JASS GEE NP Oct 30, 2018 11:07
--- NOTE | 2018-10-30 12:55 | RADRPT ---
Echocardiogram Report Patient Name: SUKUMAR LUNDBERGPatient ID: [id number] : 1960 (58y 8m)Study Date: 10/30/2018 8:18:41 AM Gender: FAccession #: [id number] Tech: SHIRAZ Location: Ref.Physician: PATRICIA ROJAS Height(Cm): BSA: Weight(Kg): Quality: GoodAccount #: Procedures: Echocardiographic Report: Transthoracic echocardiogram with complete 2D, M-Mode, and doppler examination. Indications: Chest Pain. Measurements: 2D/M Mode Doppler Measurement Value Normal Range Measurement Value Normal Range LVIDd 2D 4.2 [ 3.8 - 5.2 ] cm MIRELLA Vmax 2.5 [ 2.0 - 4.0 ] cm2 LVIDs 2D 2.9 [ 2.2 - 3.5 ] cm AV Mean Kobe 1.0 [ 70.0 - 90.0 ] cm/sec LVPWd 2D 1.1 [ 0.6 - 0.9 ] cm AV Mean PG 5.0 [ 2.0 - 4.0 ] mmHg IVSd 2D 1.1 [ 0.6 - 0.9 ] cm AV Peak Kobe 1.4 [ 100.0 - 170.0 ] cm/sec IVS/LVPW 2D 1.0 ratio AV Peak PG 8.0 [ 2.0 - 9.0 ] mmHg LVOT Diam 2.0 [ 2.1 - 2.5 ] cm AV VTI 23.8 cm LVOT Area 3.1 cm2 LVOT Peak Kobe 1.1 [ 70.0 - 110.0 ] cm/sec LVOT Peak PG 5.0 [ 2.0 - 6.0 ] mmHg MV E Peak Kobe 0.6 [ 60.0 - 130.0 ] cm/sec MV A Peak Kobe 0.8 [ 100.0 - 120.0 ] cm/sec MV E/A 0.8 [ 0.8 - 1.5 ] ratio MV Decel Time 215 [ 104 - 258 ] msec Lat E` Kobe 0.1 [ 10.0 - 15.0 ] cm/sec Med E` Kobe 0.0 cm/sec MV E/A 0.8 [ 0.8 - 1.5 ] ratio PV Peak Kobe 0.7 [ 40.0 - 80.0 ] cm/sec PV Peak PG 2.0 mmHg Findings: Left Ventricle: Normal left ventricular systolic function. Normal left ventricular cavity size. Normal left ventricular wall thickness. Ejection fraction is visually estimated at 60 %. Tissue Doppler/Mitral Doppler indices are consistent with impaired relaxation (Stage I diastolic dysfunction). Right Ventricle: Normal right ventricular size. Normal right ventricular systolic function. Left Atrium: There is mild enlargement of left atrium. Right Atrium: The right atrium is normal in size. Mitral Valve: Normal appearance and function of the mitral valve with trace physiologic regurgitation. Aortic Valve: Normal appearance of the aortic valve. No significant aortic stenosis or insufficiency. Tricuspid Valve: Normal appearance and function of the tricuspid valve with trace physiologic regurgitation. Unable to obtain RVSP due to minimal presence of tricuspid regurgitation. Pulmonic Valve: Normal pulmonic valve appearance. No evidence of pulmonic regurgitation. Pericardium: Normal pericardium with no significant pericardial effusion. There is an anterior echo free space consistent with epicardial fat pad. Aorta: Normal aortic root. IVC: Normal size and normal respiratory collapse consistent with normal right atrial pressure. Conclusions: Normal left ventricular systolic function. Normal left ventricular cavity size. Normal left ventricular wall thickness. Ejection fraction is visually estimated at 60 %. Tissue Doppler/Mitral Doppler indices are consistent with impaired relaxation (Stage I diastolic dysfunction). No significant valvular stenosis or regurgitation seen. Unable to obtain RVSP due to minimal presence of tricuspid regurgitation. Normal size and normal respiratory collapse consistent with normal right atrial pressure. Electronically Signed By: Kenji Perez 2018-10-30 12:54:45 PST
[2018-10-30] MEDS ORDERED: ATORVASTATIN 40 MG TAB PO SCH (21:00)
== END 2018-10-30 14:00 | disposition home or self-care (01) ==
LOC: E/R 20:05 → 6WM 22:24
PROVIDERS: ADMIT Family Medicine; ATTEND Family Medicine
DX: R07.9 Chest pain, unspecified (principal); K21.9 Gastro-esophageal reflux disease without esophagitis; E11.9 Type 2 diabetes mellitus without complications; E55.9 Vitamin D deficiency, unspecified; E78.5 Hyperlipidemia, unspecified; I10 Essential (primary) hypertension; F39 Unspecified mood [affective] disorder; R10.13 Epigastric pain; Z79.02 Long term (current) use of antithrombotics/antiplatelets
CPT/HCPCS: 71045; 80048; 80053; 80061; 80307; 82043; 82150; 82550; 82553; 83036; 83690; 83735; 84443; 84484; 85025; 93306; J2270; Z7500; Z7610; 93005; G0378